=== PATIENT | female | born 1995 | race Caucasian/White ===

== ENCOUNTER 2024-05-17 10:34 | Emergency (ER) | payer OTHER, SELFPAY ==
[2024-05-17 10:40] VITALS: BP 138/86; PULSE 89; TEMP 37.5; O2SAT 100; BMI 27.5
[2024-05-17 10:45] VITALS: O2SAT 99
[2024-05-17] MEDS: DEXAMETHASONE SOD PHOS 10 MG/ML VIAL 16 MG PO (10:58)
--- NOTE | 2024-05-17 11:04 | ED_ITS ---
HPI HPI - General Adult General Chief complaint: Upper Respiratory Infection Stated complaint: SORE THROAT/ FEVER Time Seen by Provider: 05/17/24 10:35 Source: patient Mode of arrival: walk-in History of Present Illness HPI narrative: 29-year-old female to the emergency department with chief complaint of nasal congestion, cough, ear pressure, sore throat. Symptoms ongoing for the last 3 days. Daughter is sick with similar symptoms. No shortness of breath or chest pain. COVID testing negative at home. Related Data Previous Rx's ?Medication ?Instructions ?Recorded vbkdtumhddkmvmj-ltrkfxamwookpuc-LH 5 ml PO Q4H PRN cold symptoms #118 05/17/24 2 mg-30 mg-10 mg/5 mL oral syrup mL (Bromfed DM) Allergies Allergy/AdvReac Type Severity Reaction Status Date / Time No Known Drug Allergies Allergy Verified 05/17/24 10:42 Opioid HPI Opioid Management Most Recent Opioid Data: No Data to Display Review of Systems ROS Status of ROS 10 or more systems reviewed and unremark able except as noted in history and below PFSH PFSH Social History Little interest or pleasure in doing things: not at all Feeling down, depressed, or hopeless: not at all Exam Narrative Exam Narrative: VITALS: I have reviewed the triage vital signs. GENERAL: Well developed, well appearing adult in no acute distress. NEURO: Alert and oriented. Moves all extremities. Face is symmetric and expressive. EYES: PERRL. No scleral icterus or conjunctival injection. No discharge. HENT: Normocephalic, atraumatic. Hearing is grossly intact. Nasal congestion bilaterally. Mucous membranes moist. Bilateral TM effusions without evidence of infection.Uvula midline. There is no unilateral peritonsillar swelling. NECK: No JVD. Patient moves neck without restriction. CARDIO: Rhythm regular. Normal rate. No murmur, rub, or gallop. Pulses equal bilaterally in the upper and lower extremity. No lower extremity edema. PULM: Lungs clear to auscultation in all stone. No wheezes, rales, or rhonchi. No conversational dyspnea. No splinting, stridor, or accessory muscle use. GI/: Abdomen is soft and non-tender. Normoactive bowel sounds. EXTREMITIES: Symmetric muscle bulk. No joint swelling. No clubbing, cyanosis, or deformity. SKIN: Warm and dry. Normal turgor. No rash or lesions appreciated. PSYCH: Mood, affect, and interaction is appropriate to the setting. Constitutional Vital Signs, click to edit/add: Last Vital Signs Temp 99.5 F 05/17/24 10:40 Pulse 89 05/17/24 10:40 Resp 16 05/17/24 10:40 BP 138/86 05/17/24 10:40 Pulse Ox 99 05/17/24 10:45 O2 Del Method Room Air 05/17/24 10:45 Course Vital Signs Vital signs: Vital Signs Temperature 99.5 F 05/17/24 10:40 Pulse Rate 89 05/17/24 10:40 Respiratory Rate 16 05/17/24 10:40 Blood Pressure 138/86 05/17/24 10:40 Pulse Oximetry 100 05/17/24 10:40 Oxygen Delivery Method Room Air 05/17/24 10:40 Temperature 99.5 F 05/17/24 10:40 Pulse Rate 89 05/17/24 10:40 Respiratory Rate 16 05/17/24 10:40 Blood Pressure 138/86 05/17/24 10:40 Pulse Oximetry 99 05/17/24 10:45 Oxygen Delivery Method Room Air 05/17/24 10:45 Medical Decision Making MDM Narrative Medical decision making narrative: 29-year-old female to the emergency department with chief complaint of nasal congestion, cough, sore throat. Vital stable, the patient is afebrile. History and exam are consistent with viral upper respiratory infection. Recommended symptomatic therapy. Bromfed. Return precautions were discussed. All qu estions were answered. The patient was discharged home Discharge Plan Discharge Chief Complaint: Upper Respiratory Infection Clinical Impression: Upper respiratory infection Patient Disposition: Home, Self-Care Time of Disposition Decision: 10:54 Condition: Good Mode of Transportation: Private Vehicle Prescriptions / Home Meds: New bevdiwikddqeylt-[id number] [Bromfed DM] 2-30-10 mg/5 mL syrup 5 ml PO Q4H PRN (Reason: cold symptoms) Qty: 118 0RF Print Language: Occitan Instructions: Upper Respiratory Infection (ED) Additional Instructions: Call the office of your primary care doctor to arrange for follow-up within the above-stated timeframe. Your ED visit was focused on your acute issue and does not replace primary care. You should review your labs, imaging, and diagnoses fr om this ED visit with your primary care physician. There may be non-emergent/ incidental findings that need further evaluation. You should review your vital signs including blood pressure with your PCP. If you were prescribed medications you should discuss possible side-effects and drug interactions with your pharmacist. Call 911 or go to the nearest Emergency Department if you develop any new or worsening symptoms. Referrals: Charlee Rodriguez NP [Primary Care Provider] - 1 week Discharge Date/Time: 05/17/24 11:02
== END 2024-05-17 11:02 | disposition home or self-care (01) ==
LOC: ER 10:59
PROVIDERS: Emergency Provider Student in an Organized Health Care Education/Training Program; PCP Nurse Practitioner
DX: J06.9 Acute upper respiratory infection, unspecified (principal)
CPT/HCPCS: 99283; J1100

== ENCOUNTER 2024-05-21 09:58 | Outpatient (OUT) | payer OTHER, SELFPAY ==
[2024-05-21 10:51] LABS: Bilirubin Urine NEGATIVE (NEGATIVE); Blood Urine NEGATIVE (NEGATIVE); Clarity Urine CLEAR (CLEAR); Color Urine LT. YELLOW (YELLOW); Glucose Urine UA NEGATIVE (NEGATIVE); Ketones Urine NEGATIVE (NEGATIVE); Leukocyte Esterase Urine SMALL (NEGATIVE); Nitrite Urine NEGATIVE (NEGATIVE); Protein Urine NEGATIVE (NEG/TRACE); Urobilinogen Urine 0.2 EU/dL (0.2-1.0)
[2024-05-21 10:53] LABS: Basophils Absolute Auto 0.1 10^3/uL (0.0-0.1); Basophils Percent Auto 1.3 % (0.2-2.0); Eosinophils Absolute Auto 0.2 10^3/uL (0.0-0.7); Eosinophils Percent Auto 3.1 % (0.9-7.0); Hematocrit 38.3 % (36.0-48.0); Hemoglobin 11.9 g/dL (12.0-16.0); Immature Granulocytes Abs Auto 0.01 10^3/uL (0.00-0.03); Immature Granulocytes Pct Auto 0.2 % (0.0-0.5); Lymphocytes Absolute Auto 1.3 10^3/uL (1.2-3.8); Lymphocytes Percent Auto 27.8 % (20.5-60.0); Mean Corpuscular HGB Conc 31.1 g/dL (29.9-35.2); Mean Corpuscular Volume 80.5 fL (81.0-99.0); Mean Platelet Volume 10.3 fL (9.5-13.5); Monocytes Absolute Auto 0.4 10^3/uL (0.3-0.8); Neutrophils Absolute Auto 2.8 10^3/uL (1.4-6.5); Neutrophils Percent Auto 58.6 % (43.0-75.0); Platelet Count 286 10^3/uL (150-450); Red Blood Count 4.76 10^6/uL (4.20-5.40); Red Cell Distribution Width 16.1 % (11.0-15.0); White Blood Count 4.8 10^3/uL (4.0-11.0)
[2024-05-21 10:57] LABS: Urine Microscopic Indicated YES
[2024-05-21 11:23] LABS: Bacteria Urine TRACE #/HPF (NONE SEEN); Cast Seen? NONE SEEN #/LPF (NONE SEEN); Crystals Seen? None Seen #/HPF (None Seen); Mucus Urine NONE SEEN (NONE SEEN); RBC Urine NONE SEEN #/HPF (0-2); Squamous Epithelial Cell Urine FEW #/LPF (NONE/RARE); WBC Urine 0-2 #/HPF (NONE SEEN)
[2024-05-21 11:45] LABS: Free T4 0.96 ng/dL (0.76-1.46)
[2024-05-21 12:13] LABS: Alanine Aminotransferase 18 U/L (14-59); Albumin Level 3.8 g/dL (3.4-5.0); Alkaline Phosphatase 54 U/L (46-116); Anion Gap 15.2; Aspartate Amino Transferase 17 U/L (15-37); BUN Creatinine Ratio 9.5; Bilirubin Total 0.5 mg/dL (0.2-1.0); Calcium 8.9 mg/dL (8.5-10.1); Carbon Dioxide 25.7 mmol/L (21.0-32.0); Chloride 104 mmol/L (98-107); Chol HDL Ratio 2.2; Cholesterol 157 mg/dL (<=200); Estimated GFR (African America >60 (>=60 mL/min/1.73m^2); Estimated GFR (Non-African Ame >60 (>=60 mL/min/1.73m^2); Globulin 3.7 g/dL; Glucose 81 mg/dL (74-106); HDL Cholesterol 72 mg/dL (40-60); Potassium 3.9 mmol/L (3.5-5.1); Sodium 141 mmol/L (136-145); Thyroid Stimulating Hormone 1.549 uIU/mL (0.358-3.740); Total Protein 7.5 g/dL (6.4-8.2); Triglycerides 31 mg/dL (<=150); VLDL CHOLESTEROL 6.2 mg/dL
[2024-05-21 12:22] LABS: Percent Iron Saturation 5.9 %
[2024-05-22 04:07] LABS: Vitamin B12 308 pg/mL (232-1245)
[2024-05-22 05:07] LABS: Transferrin 395 mg/dL (192-364)
== END 2024-05-21 09:59 | disposition home or self-care (01) ==
LOC: LAB 09:59
PROVIDERS: PCP Nurse Practitioner; Visit Provider Nurse Practitioner
DX: R42 Dizziness and giddiness (principal); D64.89 Other specified anemias; E66.3 Overweight; F17.200 Nicotine dependence, unspecified, uncomplicated
CPT/HCPCS: 36415; 80053; 80061; 81001; 82607; 83540; 83550; 84439; 84443; 84466; 85025; 93246

== ENCOUNTER 2024-07-24 20:17 | Outpatient (REF) | payer OTHER, SELFPAY ==
--- OUTSIDE RECORDS SUMMARY | 2024-07-24 20:21 | XMS_ITS | CCD ---
Author Organization [facility] Care Team Providers Care Machine Stamper Name Role Phone KEVAN RODRIGUEZ Primary Care Unavailable PAY, DR MAI Admitting Unavailable PAY, DR MAI Attending Unavailable PAY, DR MAI Consulting Unavailable MICHAEL, KEVAN CHARLEE Primary Care Unavailable ANTONY, DR CHAMBERS Admitting Unavailable HAY, DR CHAMBERS Attending Unavailable ARON TORRES Consulting Unavailable AICHHOLKatie, KEVAN CHARLEE Primary Care Unavailable ARON SINGH Consulting Unavailable ALFREDO, DARLIN Admitting Unavailable DARLIN FUENTES Attending Unavailable DARLIN FUENTES Consulting Unavailable Zach Medina MD Primary Care Provider [phone] Michael DRAFTING CLERK, Charlee Unavailable CHARLEE RODRIGUEZ Attending Unavailable CHARLEE RODRIGUEZ Attending Unavailable Medications Current Medications Medication Drug Class(es) Dates Sig (Normalized) Sig (Original) ferrous sulfate 325 mg oral tablet (4 sources) Start: 05-30-2024 End: 06-29-2024 take 1 tablet by mouth at mealtime ferrous sulfate 325 (65 Fe) MG tablet Indications: Iron deficiency anemia, unspecified iron deficiency anemia type Take 1 tablet (325 mg) by mouth in the morning. Take with meals. 30 tablet 2 05/30/2024 06/29/2024 Active Start: 05-24-2024 End: 06-23-2024 take 1 tablet by mouth at mealtime ferrous sulfate (Fe Tabs) 325 (65 Fe) MG EC tablet Indications: Iron deficiency anemia, unspecified iron deficiency anemia type Take 1 tablet (325 mg) by mouth in the morning. Take with meals. Do not crush, chew, or split. May cause discoloration of stool. 30 tablet 2 05/24/2024 06/23/2024 Active Problems Active Problems Problem Classification Problem Date Documented Da te Episodic/Chronic Anxiety disorders (4 sources) Other specified anxiety disorders; Translations: [OTHER SPECIFIED ANXIETY DISORDERS] Onset: 01-03-2022 Chronic Asthma (7 sources) Asthma; Translations: [Unspecified asthma, uncomplicated] Onset: 05-14-2024 05-14-2024 Chronic Cardiac dysrhythmias (6 sources) Tachycardia; Translations: [Tachycardia, unspecified] Onset: 06-24-2024 06-24-2024 Episodic Conditions associated with dizziness or vertigo (13 sources) Dizziness and giddiness; Translations: [Dizziness and giddiness] Onset: 05-14-2024 05-14-2024 Episodic Deficiency and other anemia (9 sources) Anemia; Translations: [Other specified anemias] Onset: 05-14-2024 05-14-2024 Episodic Deficiency and other anemia (8 sources) Iron deficiency anemia; Translations: [Iron deficiency anemia, unspecified] Onset: 05-24-2024 05-24-2024 Episodic Fever of unknown origin (1 source) Fever, unspecified; Translations: [FEVER UNSPECIFIED] Onset: 2022 Episodic Fluid and electrolyte disorders (1 source) Dehydration; Translations: [DEHYDRATION] Onset: 2022 Episodic Mood disorders (11 sources) Bipolar disorder; Translations: [Bipolar disorder, unspecified] Onset: 05-14-2024 05-14-2024 Chronic Nausea and vomiting (3 sources) Nausea with vomiting, unspecified; Translations: [NAUSEA WITH VOMITING UNSPECIFIED] Onset: 02-01-2022 Episodic Other aftercare (1 source) Other jail (current) drug therapy; Translations: [OTH IMAGING SCHEDULER CURRENT DRUG THERAPY] Onset: 2022 Episodic Other ear and sense organ disorders (7 sources) Hearing difficulty; Translations: [Unspecified hearing loss, unspecified ear] Onset: 05-14-2024 05-14-2024 Chronic Other nutritional; endocrine; and metabolic disorders (9 sources) Body mass index 25-29 - overweight; Translations: [Overweight] Onset: 05-14-2024 05-14-2024 Episodic Other upper respiratory infections (1 source) Acute upper respiratory infection, unspecified; Translations: [ACUTE UP RESPIRATORY INFECTION UNS] Onset: 04-18-2022 Episodic Personality disorders (1 source) Borderline personality disorder; Translations: [BORDERLINE PERSONALITY DISORDER] Onset: 01-04-2022 Chronic Substance-related disorders (11 sources) Tobacco dependence syndrome; Translations: [Nicotine dependence, unspecified, uncomplicated] Onset: 05-14-2024 05-14-2024 Chronic Unclassified (2 sources) COUGH, UNSPECIFIED; Translations: [COUGH, UNSPECIFIED] Onset: 04-18-2022 Unclassified (1 source) CONTACT W/AND (SUSP) EXPOS COVID-19; Translations: [CONTACT W/AND (SUSP) EXPOS COVID-19] Onset: 04-18-2022 Viral infection (1 source) COVID-19; Translations: [COVID-19] Onset: 2022 Past or Other Problems Problem Classification Problem Date Documented Da te Episodic/Chronic Screening and history of mental health and substance abuse codes (1 source) Personal history of nicotine dependence; Translations: [PERSONAL HISTORY OF NICOTINE DEPEND] Onset: 01-04-2022 Episodic Unclassified (1 source) COUGH, UNSPECIFIED; Translations: [COUGH, UNSPECIFIED] Onset: 04-15-2022 Results Test Name Value Interpretation Reference Range Facility [facility] UA (CLEAN/CATCH) MICROSC OPIC IF INDICATEon 05-21-2024 BILIRUBIN URINE Negative NEGATIVE [facility] BLOOD URINE Negative NEGATIVE [facility] Clarity (U) CLEAR CLEAR [facility] Color (U) LT. YELLOW YELLOW [facility] GLUCOSE URINE UA Negative NEGATIVE mg/dL [facility] Interpretation and review of laboratory results Abnormal [facility] Ketones Ql (U) Negative NEGATIVE mg/dL [facility] Leukocyte esterase Test strip Ql (U) SMALL Abnormal NEGATIVE [facility] NITRITE URINE Negative NEGATIVE [facility] pH (U) 7.0 [pH] 5.0 - 9.0 [facility] PROTEIN URINE Negative NEG/TRACE mg/dL [facility] SPECIFIC GRAVITY URINE 1.020 1.005 - 1.025 [facility] URINE MICROSCOPIC INDICATED YES [facility] UROBILINOGEN URINE 0.2 EU/dL 0.2 - 1.0 EU/dL [facility] Covid-19 PCR ([facility])on SARS-CoV-2 (COVID-19) RNA TATY+probe Ql (Unsp spec) Not detected Normal NOT DETECTED [facility] Comment on above: Result Comment: When diagnostic testing is negative, the possibility of a false negative should be considered in the context of a patient's recent exposures and the presence of clinical signs and symptoms consistent with SARS-CoV-2. This test is not yet approved or cleared by the [place] FDA. When there are no FDA-approved or cleared tests available, and other criteria are met, FDA can make tests available under an emergency access mechanism called an Emergency Use Authorization (EUA). The EUA for this test is supported by the Medical Education Coordinator of Health and Human Service's declaration that circumstances exist to justify the emergency use of in vitro diagnostics for the detection and/or diagnosis of the virus that causes COVID-19. This EUA will remain in effect for the duration of the COVID-19 declaration justifying emergency of IVDs, unless it is terminated or revoked by the FDA (after which the test may no longer be used). Performed By: #### [facility] #### [facility] [address] [place] [address] Dr. Cricket Vasquez ER URINE PROFILEon 2 Bilirubin Ql (U) Negative Normal NEGATIVE [facility] Comment on above: Performed By: #### Karl PARIS UMICRO #### [facility] [address] [place] [address] Dr. Cricket Vasquez Clarity (U) CLEAR Normal CLEAR [facility] Comment on above: Performed By: #### Karl PARIS UMICRO #### [facility] [address] [place] [address] Dr. Cricket Vasquez Color (U) LT. YELLOW Normal YELLOW [facility] Comment on above: Performed By: #### E [place] UMICRO #### [facility] [address] [place] [address] Dr. Cricket Vasquez ERUAHD A micrscopic examination will be performed if indicated. Normal [facility] Comment on above: Performed By: #### E NINAR UMICRO #### [facility] [address] [place] [address] Dr. Cricket Vasquez Glucose Ql (U) Negative Normal NEGATIVE [facility] Comment on above: Performed By: #### E NINAR UMICRO #### [facility] [address] [place] [address] Dr. Cricket Vasquez Hemoglobin Ql (U) SMALL Abnormal NEGATIVE [facility] Comment on above: Performed By: #### KATHY BARCLAYRO #### [facility] [address] [place] [address] Dr. Cricket Vasquez Ketones Ql (U) 15 mg/dl Abnormal NEGATIVE [facility] Comment on above: Performed By: #### KATHY BARCLAYRO #### [facility] [address] [place] [address] Dr. Cricket Vasquez LEUKOCYTES Negative Normal NEGATIVE [facility] Comment on above: Performed By: #### KATHY BARCLAYRO #### [facility] [address] [place] [address] Dr. Cricket Vasquez Nitrite Ql (U) Negative Normal NEGATIVE [facility] Comment on above: Performed By: #### KATHY BARCLAYRO #### [facility] [address] [place] [address] Dr. Cricket Vasquez pH (U) 6.0 [pH] Normal 5-9 [facility] Comment on above: Performed By: #### KATHY BARCLAYRO #### [facility] [address] [place] [address] Dr. Cricket Vasquez SPEC GRAVITY 1.025 Normal 1.005-<=1.025 [facility] Comment on above: Performed By: #### KATHY BARCLAYRO #### [facility] [address] [place] [address] Dr. Cricket Vasquez UA PROTEIN Negative Normal NEGATIVE/ TRACE [facility] Comment on above: Performed By: #### KATHY BARCLAYRO #### [facility] [address] [place] [address] Dr. Cricket Vasquez UR MICRO IND INDICATED Normal [facility] Comment on above: Performed By: #### KATHY BARCLAYRO #### [facility] [address] [place] [address] Dr. Cricket Vasquez Urobilinogen Qn (U) 0.2 {Elizabeth'U}/dL Normal 0.2 - 1. 0 [facility] Comment on above: Performed By: #### E RUR, UMICRO #### [facility] [address] [place] [address] Dr. Cricket Vasquez URINE MICROSCOPIC ONLYon BACTERIA NONE SEEN Normal NONE SEEN [facility] Comment on above: Performed By: #### E RUR, UMICRO #### [facility] [address] [place] [address] Dr. Cricket Vasquez Bacteria identified Cx Nom (U) NOT INDICATED Normal [facility] Comment on above: Performed By: #### E RUR, UMICRO #### [facility] [address] [place] [address] Dr. Cricket Vasquez CAST NONE SEEN Normal NONE SEEN [facility] Comment on above: Performed By: #### E RUR, UMICRO #### [facility] [address] [place] [address] Dr. Cricket Vasquez Crystals LM Nom (Urine sed) NONE SEEN Normal NONE SEEN [facility] Comment on above: Performed By: #### E RUR, UMICRO #### [facility] [address] [place] [address] Dr. Cricket Vasquez Epithelial cells LM Ql (Urine sed) FEW Abnormal NONE SEEN /RARE [facility] Comment on above: Performed By: #### E RUR, UMICRO #### [facility] [address] [place] [address] Dr. Cricket Vasquez MUCOUS SMALL Abnormal NONE SEEN [facility] Comment on above: Performed By: #### E RUR, UMICRO #### [facility] [address] [place] [address] Dr. Cricket Vasquez RBC 0-2 Normal 0-2 [facility] Comment on above: Performed By: #### E RUR, UMICRO #### [facility] [address] [place] [address] Dr. Cricket Vasquez WBC NONE SEEN Normal NONE SEEN [facility] Comment on above: Performed By: #### E RUR, UMICRO #### [facility] [address] [place] [address] Dr. Cricket Vasquez Covid-19 PCR (CVDTB)on 01-06 SARS-CoV-2 (COVID-19) RNA TATY+probe Ql (Unsp spec) Detected Critically abnormal NOT DETECTED [facility] Comment on above: Result Comment: This test is not yet approved or cleared by the [place] FDA. When there are no FDA-approved or cleared tests available, and other criteria are met, FDA can make tests available under an emergency access mechanism called an Emergency Use Authorization (EUA). The EUA for this test is supported by the [place] of Health and Human Service's (HHS's) declaration that circumstances exist to justify the emergency use of in vitro diagnostics for the detection and/or diagnosis of the virus that causes COVID-19. This EUA will remain in effect (meaning this test can be used) for the duration of the COVID-19 declaration justifying emergency of IVDs, unless it is terminated or revoked by FDA (after which the test may no longer be used). Performed By: #### C VDTBH #### [facility] [address] [place] [address] Dr. Cricket Vasquez ER URINE PROFILEon 2 Bilirubin Ql (U) SMALL Abnormal NEGATIVE [facility] Comment on above: Performed By: #### E RUR #### [facility] [address] [place] [address] Dr. Cricket Vasquez Clarity (U) CLEAR Normal CLEAR [facility] Comment on above: Performed By: #### E RUR #### [facility] [address] [place] [address] Dr. Cricket Vasquez Color (U) DK. YELLOW Normal YELLOW [facility] Comment on above: Performed By: #### E RUR #### [facility] [address] [place] [address] Dr. Cricket MYERS A micrscopic examination will be performed if indicated. Normal [facility] Comment on above: Performed By: #### E RUR #### [facility] [address] [place] [address] Dr. Cricket Vasquez Glucose Ql (U) Negative Normal NEGATIVE [facility] Comment on above: Performed By: #### E RUR #### [facility] [address] [place] [address] Dr. Cricket Vasquez Hemoglobin Ql (U) Negative Normal NEGATIVE [facility] Comment on above: Performed By: #### E RUR #### [facility] [address] [place] [address] Dr. Cricket Vasquez Ketones Ql (U) >=80 Abnormal NEGATIVE [facility] Comment on above: Performed By: #### E RUR #### [facility] [address] [place] [address] Dr. Cricket Vasquez LEUKOCYTES Negative Normal NEGATIVE [facility] Comment on above: Performed By: #### E RUR #### [facility] [address] [place] [address] Dr. Cricket Vasquez Nitrite Ql (U) Negative Normal NEGATIVE [facility] Comment on above: Performed By: #### E RUR #### [facility] [address] [place] [address] Dr. Cricket Vasquez pH (U) 5.5 [pH] Normal 5-9 [facility] Comment on above: Performed By: #### E RUR #### [facility] [address] [place] [address] Dr. Cricket Vasquez SPEC GRAVITY >=1.030 Abnormal 1.005-<=1.025 [facility] Comment on above: Performed By: #### E RUR #### [facility] [address] [place] [address] Dr. Cricket Vasquez UA PROTEIN TRACE Normal NEGATIVE/ TRACE [facility] Comment on above: Performed By: #### E RUR #### [facility] [address] [place] [address] Dr. Cricket Vasquez UR MICRO IND NOT INDICATED Normal [facility] Comment on above: Performed By: #### E RUR #### [facility] [address] [place] [address] Dr. Cricket Vasquez Urobilinogen Qn (U) 1.0 {Elizabeth'U}/dL Normal 0.2 - 1. 0 [facility] Comment on above: Performed By: #### E RUR #### [facility] [address] [place] [address] Dr. Cricket Vasquez GROUP A STREP CULTUREon 01-06 S. pyogenes Ag Ql (Unsp spec) Culture Observations: NEGATIVE FOR GROUP A STREPTOCOCCUS. Normal [facility] Comment on above: Performed By: #### G RASTCX, SSCRN #### [facility] [address] [place] [address] Dr. Cricket Vasquez INFLUENZA A AND B AGon 02-01 INFLUANEGH SEE BELOW Normal [facility] Comment on above: Result Comment: Nega tive for Flu A protein angiten. Infection due to Flu A cannot be ruled out. Flu A angiten in the sample may be below the detection limit of the test. Performed By: #### I NFLUAB #### [facility] [address] [place] [address] Dr. Cricket Vasquez INFLUBNEGH SEE BELOW Normal [facility] Comment on above: Result Comment: Nega tive for Flu B protein antigen. Infection due to Flu B cannot be ruled out. Flu B antigen in the sample may be below the detection limit of the test. Performed By: #### I NFLUAB #### [facility] [address] [place] [address] Dr. Cricket Vasquez INFLUENZA A AG Negative Normal NEGATIVE SEE COMMENT [facility] Comment on above: Performed By: #### I NFLUAB #### [facility] [address] [place] [address] Dr. Cricket Vasquez INFLUENZA B AG Negative Normal NEGATIVE SEE COMMENT [facility] Comment on above: Performed By: #### I NFLUAB #### [facility] [address] [place] [address] Dr. Cricket Vasquez INTERNAL CONTROLS Within Normal Limits Normal Within Normal Limits [facility] Comment on above: Performed By: #### I NFLUAB #### [facility] [address] [place] [address] Dr. Cricket Vasquez STREPT SCREENon 02-01-2022 STREP SCREEN A Negative Normal NEGATIVE [facility] Comment on above: Performed By: #### G RASTCX, SSCRN #### [facility] [address] [address] [address] Cricket Vasquez Coding Summaryon 01-16-2019 Coding Summary CODING DATE: 01/16/2019 [facility] STATUS: Home PAYOR: Medicaid HMO ADMIT DX: REASON FOR VISIT DX: F31.32 Bipolar disorder, current episode depressed, moderate FINAL DX: PRINCIPAL: F31.32 Bipolar disorder, current episode depressed, moderate SECONDARY: PROCEDURES DOCTOR NAME DATE NOTE: The code number assigned matches the documented diagnosis and / or procedure in the patient's chart. However, the narrative phrase printed from the coding software may appear abbreviated, or result in slightly different terminology. Coded By: Traci Larson Date Saved: 01/16/2019 01:11 pm [facility] Provider Orderson 01-16-2019 Provider Orders [id number] 3#[id number] [facility] T3 Total LCon 01-16-2019 Triiodothyronine (T3) LC 128 ng/dL 71-180 [facility] Comment on above: Result Comment: Perf ormed At: [facility] [address] [id number] Chelsea Driver PhD Ph:[phone] Performed By: #### 6 [id number], [id number] #### [facility] (DEFAULT) [address] [place] [id number] .Auto Diff 1on 01-15-2019 Auto [place] % 11 % Normal 08-18 [facility] Comment on above: Performed By: #### 6 [id number], [id number] #### [facility] (DEFAULT) [address] [place] [address] Baso Abs# 0.0 x10 Normal 0.0-0.2 [facility] Comment on above: Performed By: #### 6 [id number], [id number] #### [facility] (DEFAULT) [address] [place] [address] 46046 Basophils/100 WBC (Bld) 0.6 % Normal 0.2-2.0 [facility] Comment on above: Performed By: #### 6 [id number] #### [facility] (DEFAULT) [address] [place] [address] 31701 Eos Abs# 0.2 x10 Normal 0.0-0.4 [facility] Comment on above: Performed By: #### 6 [id number], [id number] #### [facility] (DEFAULT) [address] [place] [address] 94443 Eosinophils/100 WBC (Bld) 2.9 % Normal 0.9-4.0 [facility] Comment on above: Performed By: #### 6 [id number], [id number] #### [facility] (DEFAULT) [address] [place] [address] Lymphocytes (Bld) [#/Vol] 2.2 x10 Normal 1.3-2.9 [facility] Comment on above: Performed By: #### 6 [id number], [id number] #### [facility] (DEFAULT) [address] [place] [address] Lymphocytes/100 WBC (Bld) 36 % Normal 14-48 [facility] Comment on above: Performed By: #### 6 [id number], [id number] #### [facility] (DEFAULT) [address] [place] [address] [place] Abs# 0.7 x10 Normal 0.0-0.8 [facility] Comment on above: Performed By: #### 6 [id number], [id number] #### [facility] (DEFAULT) [address] [place] [address] 13484 Neut Abs# 3.1 x10 Normal 1.5-9.2 [facility] Comment on above: Performed By: #### 6 [id number], [id number] #### [facility] (DEFAULT) [address] [place] [address] 07548 Neutrophils/100 WBC (Bld) 50 % Normal 44-88 [facility] Comment on above: Performed By: #### 6 [id number], [id number] #### [facility] (DEFAULT) [address] [place] [address] 82401 .Bilirubin Indirecton 2018 Bili Indirect 0.5 mg/dL Normal 0.2-0.8 [facility] Comment on above: Order Comment: Order placed by Design A Expert System Performed By: #### 6 [id number], [id number] #### [facility] (DEFAULT) [address] [place] [address] Bili Directon 01-15-2019 Bili Direct 0.10 mg/dL Normal 0.10-0.50 [facility] Comment on above: Order Comment: Order placed by Design [employer] Expert System ([email or web address]) Performed By: #### 6 [id number], [id number] #### [facility] (DEFAULT) [address] [place] [address] CBC w/ Auto Diffon 9 Erythrocyte distribution width (RBC) [Ratio] 16.6 % High 11.5-15.0 [facility] Comment on above: Performed By: #### 6 [id number], [id number] #### [facility] (DEFAULT) [address] [place] [address] Hematocrit (Bld) [Volume fraction] 39.6 % Normal 33.7-40.4 [facility] Comment on above: Performed By: #### 6 [id number], [id number] #### [facility] (DEFAULT) [address] [place] [address] Hemoglobin (Bld) [Mass/Vol] 12.9 g/dL Normal 11.3-15.9 [facility] Comment on above: Performed By: #### 6 [id number], [id number] #### [facility] (DEFAULT) [address] [place] [address] Man Diff? Auto Normal [facility] Comment on above: Performed By: #### 6 [id number], [id number] #### [facility] (DEFAULT) [address] [place] [address] MCH (RBC) [Entitic mass] 25 pg Normal 24-34 [facility] Comment on above: Performed By: #### 6 [id number], [id number] #### [facility] (DEFAULT) [address] [place] [address] 00796 MCHC (RBC) [Mass/Vol] 33 g/dL Normal 26-37 [facility] Comment on above: Performed By: #### 6 [id number], [id number] #### [facility] (DEFAULT) [address] [place] [address] 38353 MCV (RBC) [Entitic vol] 76 fL Low 81-100 [facility] Comment on above: Performed By: #### 6 [id number], [id number] #### [facility] (DEFAULT) [address] [place] [address] Platelet mean volume (Bld) [Entitic vol] 10.6 fL High 6.3-10.2 [facility] Comment on above: Performed By: #### 6 [id number], [id number] #### [facility] (DEFAULT) [address] [place] [address] Platelets (Bld) [#/Vol] 281 x10 Normal 138-427 [facility] Comment on above: Performed By: #### 6 [id number], [id number] #### [facility] (DEFAULT) [address] [place] [address] RBC (Bld) [#/Vol] 5.23 x10 Normal 3.70-5.30 [facility] Comment on above: Performed By: #### 6 [id number], [id number] #### [facility] (DEFAULT) [address] [place] [address] WBC (Bld) [#/Vol] 6.2 x10 [facility] Comment on above: Performed By: #### 6 [id number], [id number] #### [facility] (DEFAULT) [address] [place] [address] CMP Standardon 01-15-2019 eGFR Non AA >60 [facility] Comment on above: Performed By: #### 6 [id number], [id number] #### [facility] (DEFAULT) [address] [place] [address] eGFR AA >60 [facility] Comment on above: Result Comment: [employer] Kidney disease could be indicated at eGFRs of less than 60 ml/min/1.73m2. Kidney Failure is indicated at less than 15 ml/min/1.73m2 Performed By: #### 6 [id number], [id number] #### [facility] (DEFAULT) [address] [place] [address] 60750 Albumin [Mass/Vol] 4.4 g/dL Normal 3.5-5.0 [facility] Comment on above: Performed By: #### 6 [id number], [id number] #### [facility] (DEFAULT) [address] [place] [address] 23833 Albumin/Globulin [Mass ratio] 1.1 {ratio} Low 1.4-2.6 [facility] Comment on above: Performed By: #### 6 [id number], [id number] #### [facility] (DEFAULT) [address] [place] [address] 95887 Alk Phos 57 IU/L Normal 32-91 [facility] Comment on above: Performed By: #### 6 [id number], [id number] #### [facility] (DEFAULT) [address] [place] [address] 34469 ALT/SGPT 20.0 IU/L Normal 14.0-54.0 [facility] Comment on above: Performed By: #### 6 [id number], [id number] #### [facility] (DEFAULT) [address] [place] [address] 47038 Anion gap [Moles/Vol] 15.0 mmol/L Normal 5.0-19.0 [facility] Comment on above: Performed By: #### 6 [id number], [id number] #### [facility] (DEFAULT) [address] [place] [address] 29007 AST/SGOT 26 IU/L Normal 15-41 [facility] Comment on above: Performed By: #### 6 [id number], [id number] #### [facility] (DEFAULT) [address] [place] [address] 98547 Bili Total 0.6 mg/dL Normal 0.3-1.2 [facility] Comment on above: Performed By: #### 6 [id number], [id number] #### [facility] (DEFAULT) [address] [place] [address] 62036 Calcium [Mass/Vol] 9.4 mg/dL Normal 8.9-10.3 [facility] Comment on above: Performed By: #### 6 [id number], [id number] #### [facility] (DEFAULT) [address] [place] [address] 88603 Chloride [Moles/Vol] 105 mmol/L Normal 101-111 [facility] Comment on above: Performed By: #### 6 [id number], [id number] #### [facility] (DEFAULT) [address] [place] [address] 23246 CO2 [Moles/Vol] 23 mmol/L Normal 21-32 [facility] Comment on above: Performed By: #### 6 [id number], [id number] #### [facility] (DEFAULT) [address] [place] [address] 01603 Creatinine [Mass/Vol] 0.74 mg/dL Normal 0.60-1.30 [facility] Comment on above: Performed By: #### 6 [id number], [id number] #### [facility] (DEFAULT) [address] [place] [address] 73654 Globulin (S) [Mass/Vol] 4.0 g/dL Normal 1.5-4.3 [facility] Comment on above: Performed By: #### 6 [id number], [id number] #### [facility] (DEFAULT) [address] [place] [address] 11004 Glucose [Mass/Vol] 99.0 mg/dL Normal 74.0-118.0 [facility] Comment on above: Performed By: #### 6 [id number], [id number] #### [facility] (DEFAULT) [address] [place] [address] 42954 Osmolality [Osmolality] 276 mOsm/L [facility] Comment on above: Performed By: #### 6 [id number], [id number] #### [facility] (DEFAULT) [address] [place] [address] 94211 Potassium [Moles/Vol] 3.7 mmol/L Normal 3.6-5.1 [facility] Comment on above: Performed By: #### 6 [id number], [id number] #### [facility] (DEFAULT) [address] [place] [address] 79577 Protein [Mass/Vol] 8.4 g/dL High 6.5-8.1 [facility] Comment on above: Performed By: #### 6 [id number], [id number] #### [facility] (DEFAULT) [address] [place] [address] 99903 Sodium [Moles/Vol] 139.0 mmol/L Normal 136.0-144.0 [facility] Comment on above: Performed By: #### 6 [id number], [id number] #### [facility] (DEFAULT) [address] [place] [address] Urea nitrogen [Mass/Vol] 9 mg/dL Normal 8-26 [facility] Comment on above: Performed By: #### 6 [id number], [id number] #### [facility] (DEFAULT) [address] [place] [address] Urea nitrogen/Creatinine [Mass ratio] 12.0 mg/mg Normal 4.6-16.2 [facility] Comment on above: Performed By: #### 6 [id number], [id number] #### [facility] (DEFAULT) [address] [place] [address] T4, Totalon 01-15-2019 T4 [Mass/Vol] 7.67 ug/dL Normal 6.09-12.23 [facility] Comment on above: Performed By: #### 6 [id number], [id number] #### [facility] (DEFAULT) [address] [place] [address] 38179 TSHon 01-15-2019 TSH Qn 2.98 mcIU/mL Normal 0.45-5.33 [facility] Comment on above: Result Comment: Gene ral Population (males and non- females, aged 21-88) 0.45 - 5.33 Females, 1st Trimester 0.05 - 3.70 Females, 2nd Trimester 0.31 - 4.35 Females, 3rd Trimester 0.41 - 5.18 Performed By: #### 6 [id number], [id number] #### [facility] (DEFAULT) [address] [place] [address] 05120 C Throaton 10-08-2018 C Throat Ordered by Discern. Normal throat geovanna isolated No pathogens isolated Normal [facility] Comment on above: Performed By: #### 6 [id number], [id number] #### [facility] (DEFAULT) [address] [place] [address] Coding Summaryon 10-08-2018 Coding Summary CODING DATE: 10/08/2018 [facility] STATUS: Home PAYOR: Medicaid HMO ADMIT DX: REASON FOR VISIT DX: J02.9 Acute pharyngitis, unspecified R52 Pain, unspecified R68.83 Chills (without fever) FINAL DX: PRINCIPAL: J02.9 Acute pharyngitis, unspecified SECONDARY: J03.90 Acute tonsillitis, unspecified R59.0 Localized enlarged lymph nodes M79.10 Myalgia, unspecified site PROCEDURES DOCTOR NAME DATE NOTE: The code number assigned matches the documented diagnosis and / or procedure in the patient's chart. However, the narrative phrase printed from the coding software may appear abbreviated, or result in slightly different terminology. Coded By: Traci Larson Date Saved: 10/08/2018 10:[address] [facility] ED Clinical Summaryon [address] [facility] ? Urgent Care [address] [place] [address] [id number] Clinical Summary PERSON INFORMATION Name: PAMELA DAVISON Age: 23 Years Sex: FEMALE : [birth year] MRN: Acct#: Visit Reason: UC - Sore Throat; SORE THROAT Arrival: 10/06/18 17:13:00 Discharge: 10/06/18 17:53:00 LOS: 000 00:40 Check In: 10/06/18 17:13:00 Checkout: 10/06/18 17:53:00 Address: [address] [place] [address] PCP: Provider, None PROVIDER INFORMATION Provider Role Assigned Unassigned Julianne Robledo ED Nurse 10/06/18 17:13:46 Grant Gunn ED PA 10/06/18 17:16:43 VITALS INFORMATION Vital Sign Triage Latest Temperature Tympanic Temperature Temporal Artery Pulse Rate 72 bpm 72 bpm O2 Sat Respiratory Rate 16 br/min 16 br/min Blood Pressure 110 mmHg/60 mmHg 110 mmHg/60 mmHg MEDICAL INFORMATION Medications Given: Medication Dose Route dexamethasone 10 mg PO Allergy Information: No Known Medication Allergies PHYSICIAN DOCUMENTATION DISCHARGE INFORMATION: Discharge Disposition: Home Discharge Location: Home PATIENT EDUCATION INFORMATION Instructions: Tonsillitis Follow-Up: With: Address: When: None Provider Within As needed Comments: Your throat sore throat and cough is most bothersome today. Your rapid strep test was negative. Throat culture will return in 3 days and if positive for bacterial infection you be notified by telephone so an antibiotic can be prescribed. Your influenza A/B test was negative. You have a low grade temp with ibuprofen on board. You were given a dose of oral Decadron which is a steroid to help with the swelling and pain in you throat which will help for 3 days. Consider additional use of Chloraseptic spray, salt water gargle, cool liquids. Ibuprofen 600 mg every 8 hours will help for the pain and discomfort if needed. You may also use Tylenol 500mg every 4-6 hours for additional pain relief. Please return for medical care if fever over 101.5, difficulty swallowing, swelling on only one side of your neck or back of throat, muffled voice, drooling, progressive symptoms, chest pain, shortness breath, abdominal pain, nausea, vomiting, diarrhea. DIAGNOSIS: 1:Acute tonsillitis; Acute pharyngitis; Anterior cervical lymphadenopathy; Myalgia Patient Understands: Yes - Patient/family/critical care specialist verbalizes understanding of instructions given Comment: [facility] ED Note - Physicianon 2018 ED Note - Physician Patient: PAMELA DAVISON Age: 23 years Sex: FEMALE : [birth year] Associated Diagnoses: Acute pharyngitis; Acute tonsillitis; Anterior cervical lymphadenopathy; Myalgia Author: Grant Gunn Basic Information Time seen: Date & time 10/06/18 17:19:00. Layne is a 23-year-old female who reports onset 5-7 days ago of first a sore throat, significant body aches, chills. Patient states he took all of her energy to shower today. Patient states the left side of her throat feels sore, left side of her neck feels sore, left ear feels sore. Mild nasal congestion, mild dry cough, no significant sinus pain. Patient reports mild headache. She has not had a recent strep infection. No known exposure to strep. Patient reports 3 close family members haven't been tested positive for influenza a the past week. ROS: She denies any significant shortness of breath, wheezing. She has not traveled abroad, she did not have her flu vaccine this year. LMP is current. Review of Systems Constitutional symptoms: Chills, sweats, weakness, fatigue, decreased activity, No fever, Skin symptoms: No rash, no breakdown, no lesion. Eye symptoms: No recent vision problems, no blurred vision. ENMT symptoms: Sore throat, nasal congestion, no ear pain, no sinus pain. Respiratory symptoms: Cough, no shortness of breath, no sputum production, no wheezing. Cardiovascular symptoms: No chest pain, no palpitations. Gastrointestinal symptoms: No abdominal pain, no nausea, no vomiting, no diarrhea. Genitourinary symptoms: No dysuria, no hematuria. Musculoskeletal symptoms: Muscle pain, No back pain, Neurologic symptoms: No headache, no dizziness, no altered level of consciousness, no numbness, no tingling, no weakness. Psychiatric symptoms: No anxiety, no depression. Health Status Allergies: Allergic Reactions (Selected) No Known Medication Allergies. Medications: (Selected) Inpatient Medications Ordered dexamethasone: 10 mg = 2.5 mL, PO, Once Prescriptions Prescribed amoxicillin 500 mg oral tablet: 500 mg = 1 tab(s), PO, TID, for 10 day(s), 30 tab(s), 0 Refill(s) Documented Medications Documented ProAir HFA: 2 puff(s), INH, QID, 0 Refill(s). Past Medical/ Family/ Social History Medical history: Resolved Smoker 06-FEB-2014 12:37:00<$> ([id number]) : Resolved. Comments: - Added secondary to documentation in Social History. H/O: kidney infection ([id number]): Resolved.. Surgical history: No active procedure history items have been selected or recorded.. Family history: No family history items have been selected or recorded.. Social history: Social & Psychosocial Habits Tobacco 09/15/2018 Smoking tobacco use: Former smoker, quit more . Problem list: Active Problems (4) Anemia Asthma Ingrown nail of great toe of left foot Migraine . Physical Examination Vital Signs Vital Signs 10/06/18 17:17 EST Temperature Oral 37.2 DegC Peripheral Pulse Rate 72 bpm Respiratory Rate 16 br/min Systolic Blood Pressure 110 mmHg Diastolic Blood Pressure 60 mmHg . General: Alert, appropriate for age, no acute distress, Well-hydrated, nontoxic, mild congestion. Skin: Warm, dry, pink, Normal turgor. Head: Normocephalic, atraumatic. Neck: Supple, trachea midline, no meningeal signs.. Eye: Pupils are equal, round and reactive to light, extraocular movements are intact, normal conjunctiva. Ears, nose, mouth and throat: Bilateral earlobes with large gauges, There is no mastoid tenderness. Bilateral ear canals clear of wax, tympanic membranes are clear and shiny, no effusion, no erythema., Tympanic membrane: Normal, no erythema, Sinus: Frontal, maxillary, normal, Nose: Mild, discharge, swelling, Mouth: Mild, Throat: Mild, erythema, Note peritonsillar abscess, no exudate, no uvular shift. Gag reflex present, not with exudate, no palatal petechiae. Cardiovascular: Regular rate and rhythm, No murmur. Respiratory: Lungs are clear to auscultation, respirations are non-labored. Chest wall: No tenderness. Back: Nontender, Normal range of motion. Musculoskeletal: Normal ROM, normal strength, no tenderness. Gastrointestinal: Soft, Nontender, Non distended. Neurological: Alert and oriented to person, place, time, and situation, No focal neurological deficit observed. Lymphatics: Bilateral swollen, enlarged cervical lymphadenopathy, size of golf balls. Chain of 3 cervical lymph nodes. No posterior cervical lymphadenopathy., Exam: Anterior cervical. Psychiatric: Cooperative, appropriate mood & affect, normal judgment. Medical Decision Making Differential Diagnosis: Viral pharyngitis, streptococcal pharyngitis, tonsillitis, upper respiratory infection, Influenza . Orders Launch Orders Pharmacy: dexamethasone (Order): 10 mg, PO, Once. Results review: Lab results : Lab View 10/06/18 17:22 EST Strep A Negative Influenza A Negative Influenza B Negative . 5-7 days of primary body aches, chills, sore throat, myalgia. Patient describes a mild cough. On clinical exam patient has cervical lymphadenopathy in a chain, no mastoid pain tenderness, ears clear bilaterally. Patient was negative for influenza A and B. Negative for strep A. Patient has been running a temperature for 5 days now. I would begin her on amoxicillin 500 mg 3 times a day for the next 10 days with a diagnosis of acute tonsillitis. Await throat culture. Dose of oral Decadron given in urgent care. Patient has no clinical signs of peritonsillar abscess. Follow-up if no improvement. Impression and Plan Diagnosis Acute pharyngitis ([id number] J02.9, Discharge, Medical) Acute tonsillitis (KHC58-HV J03.90, Discharge, Medical) Anterior cervical lymphadenopathy ([id number]-WY R59.0, Discharge, Medical) Myalgia (AQQ53-WG M79.10, Discharge, Medical) Plan Disposition: Discharged: Time 10/06/18 17:50:00, to home. Prescriptions: Launch prescriptions Pharmacy: amoxicillin 500 mg oral tablet (Prescribe): 500 mg = 1 tab(s), PO, TID, for 10 day(s), 30 tab(s), 0 Refill(s). Patient was given the following educational materials: Tonsillitis, Tonsillitis. Follow up with: None Provider Within As needed Your throat sore throat and cough is most bothersome today. Your rapid strep test was negative. Throat culture will return in 3 days and if positive for bacterial infection you be notified by telephone so an antibiotic can be prescribed. Your influenza A/B test was negative. You have a low grade temp with ibuprofen on board. You were given a dose of oral Decadron which is a steroid to help with the swelling and pain in you throat which will help for 3 days. Consider additional use of Chloraseptic spray, salt water gargle, cool liquids. Ibuprofen 600 mg every 8 hours will help for the pain and discomfort if needed. You may also use Tylenol 500mg every 4-6 hours for additional pain relief. Please return for medical care if fever over 101.5, difficulty swallowing, swelling on only one side of your neck or back of throat, muffled voice, drooling, progressive symptoms, chest pain, shortness breath, abdominal pain, nausea, vomiting, diarrhea.. Counseled: Patient, Regarding diagnosis, Regarding diagnostic results, Regarding treatment plan, Regarding prescription, Patient indicated understanding of instructions. [Electronically Signed on: 10/06/2018 18:00 EST] __ Grant Gunn [Verified on: 10/06/2018 18:00 EST] __ Grant Gunn [facility] ED Patient Summaryon [address] [facility] ? Urgent Care [address] [place] [address] PATIENT DISCHARGE INSTRUCTIONS Patient Information Name: PAMELA DAVISON Age: 23 Years Date of : [birth year] Reason For Visit: UC - Sore Throat; SORE THROAT Arrival Time: 10/06/18 17:13:00 Primary Care Physician: Provider, None Attending Physician: Grant Gunn Comment: Patient Education With: Address: When: None Provider Within As needed Comments: Your throat sore throat and cough is most bothersome today. Your rapid strep test was negative. Throat culture will return in 3 days and if positive for bacterial infection you be notified by telephone so an antibiotic can be prescribed. Your influenza A/B test was negative. You have a low grade temp with ibuprofen on board. You were given a dose of oral Decadron which is a steroid to help with the swelling and pain in you throat which will help for 3 days. Consider additional use of Chloraseptic spray, salt water gargle, cool liquids. Ibuprofen 600 mg every 8 hours will help for the pain and discomfort if needed. You may also use Tylenol 500mg every 4-6 hours for additional pain relief. Please return for medical care if fever over 101.5, difficulty swallowing, swelling on only one side of your neck or back of throat, muffled voice, drooling, progressive symptoms, chest pain, shortness breath, abdominal pain, nausea, vomiting, diarrhea. Tonsillitis Tonsillitis is an infection of the throat that causes the tonsils to become red, tender, and swollen. Tonsils are collections of lymphoid tissue at the back of the throat. Each tonsil has crevices (crypts). Tonsils help fight nose and throat infections and keep infection from spreading to other parts of the body for the first 18 months of life. What are the causes? Sudden (acute) tonsillitis is usually caused by infection with streptococcal bacteria. Long-lasting (chronic) tonsillitis occurs when the crypts of the tonsils become filled with pieces of food and bacteria, which makes it easy for the tonsils to become repeatedly infected. What are the signs or symptoms? Symptoms of tonsillitis include: ? A sore throat, with possible difficulty swallowing. ? White patches on the tonsils. ? Fever. ? Tiredness. ? New episodes of snoring during sleep, when you did not snore before. ? Small, foul-smelling, yellowish-white pieces of material (tonsilloliths) that you occasionally cough up or spit out. The tonsilloliths can also cause you to have bad breath. How is this diagnosed? Tonsillitis can be diagnosed through a physical exam. Diagnosis can be confirmed with the results of lab tests, including a throat culture. How is this treated? The goals of tonsillitis treatment include the reduction of the severity and duration of symptoms and prevention of associated conditions. Symptoms of tonsillitis can be improved with the use of steroids to reduce the swelling. Tonsillitis caused by bacteria can be treated with antibiotic medicines. Usually, treatment with antibiotic medicines is started before the cause of the tonsillitis is known. However, if it is determined that the cause is not bacterial, antibiotic medicines will not treat the tonsillitis. If attacks of tonsillitis are severe and frequent, your health care provider may recommend surgery to remove the tonsils (tonsillectomy). Follow these instructions at home: ? Rest as much as possible and get plenty of sleep. ? Drink plenty of fluids. While the throat is very sore, eat soft foods or liquids, such as sherbet, soups, or instant breakfast drinks. ? Eat frozen ice pops. ? Gargle with a warm or cold liquid to help soothe the throat. Mix 1/4 teaspoon of salt and 1/4 teaspoon of baking soda in 8 oz of water. Contact a health care provider if: ? Large, tender lumps develop in your neck. ? A rash develops. ? A green, yellow-brown, or bloody substance is coughed up. ? You are unable to swallow liquids or food for 24 hours. ? You notice that only one of the tonsils is swollen. Get help right away if: ? You develop any new symptoms such as vomiting, severe headache, stiff neck, chest pain, or trouble breathing or swallowing. ? You have severe throat pain along with drooling or voice changes. ? You have severe pain, unrelieved with recommended medications. ? You are unable to fully open the mouth. ? You develop redness, swelling, or severe pain anywhere in the neck. ? You have a fever. This information is not intended to replace advice given to you by your health care provider. Make sure you discuss any questions you have with your health care provider. Document Released: 05/03/2006 Document Revised: 12/29/2016 Document Reviewed: 01/10/2014 [employer] Interactive Patient Education ? 2017 [employer] Medication Information: The exam and treatment you received today in the [facility] Emergency Department were for an urgent problem and are not intended as complete care. It is important for you to follow up with a doctor, nurse practitioner, or physician?s respiratory equipment assistant for ongoing care. If your symptoms become worse or you do not improve as expected and you are unable to reach your usual health care provider, you should return to the Emergency Department, we are available 24 hours a day. For those patients who have received Radiology results, the interpretation of your X-ray as given to you by our Emergency Department physician is only a preliminary report. The Radiologist will review your films and if there is a change in the diagnosis you will be notified by phone. Please make sure you have provided a working phone number so we can reach you if necessary. In the event that you had a lab culture while you were a patient in the Emergency Department, you will be notified by phone if there is a need to change your antibiotic. Please make sure you have provided a working phone number so we can reach you if necessary. [facility] Emergency Department has provided you with a complete list of medications post discharge. 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 Any specific questions regarding your chronic medications and dosages should be discussed with your primary care physician(s) and/or pharmacist. New Medications [facility], [address] [place] [address] [id number], [phone] amoxicillin (amoxicillin 500 mg oral tablet) 1 tab(s) Oral 3 times a day for 10 Days. Refills: 0. Medications to Continue That Have Not Changed Other Medications albuterol (ProAir HFA) 2 puff(s) Inhalation 4 times a day. Visit Information Visit Diagnosis: Diagnoses This Visit Acute pharyngitis (J02.9) Acute tonsillitis (J03.90) Anterior cervical lymphadenopathy (R59.0) Myalgia (M79.10) UC - Sore Throat ([id number]) If you received any narcotics, sedation, or any other medication that causes drowsiness for the next 24 hours, unless otherwise directed: ? Do not drive a car. ? Do not operate machinery such as power tools, lawn mowers, drills, sewing machines, or stoves ? Avoid alcoholic beverages and drugs for allergies, nerves, or sleep ? Do not make important personal or business decisions or sign any legal documents Reason for Visit: 5-7 days nasal congestion, drainage, sore throat left side and cough Allergies: Substance Reaction Symptoms Type Comments No Known Medication Allergies Drug Vital Signs: Vitals and Measurements this Visit (last charted value for your 10/06/2018 visit) Vital Signs This Visit Temperature Oral: 37.2 DegC Peripheral Pulse Rate: 72 bpm Respiratory Rate: 16 br/min Systolic Blood Pressure: 110 mmHg Diastolic Blood Pressure: 60 mmHg Problems List: Problem Onset Comments Anemia Asthma Ingrown nail of great toe of left foot Migraine Major Tests and Procedures: The following procedures and tests were performed during your ED visit. Laboratory Rapid Flu A&B Nasopharyngeal Swab, 10/06/18 17:21:00 EST, Routine collect, Stop date 10/06/18 17:22:00 EST, Nurse collect Rapid Strep Throat, 10/06/18 17:22:00 EST, Stat collect, Stop date 10/06/18 17:22:00 EST, Nurse collect Throat Culture Throat, Collected, 10/06/18 17:22:00 EST, Stat collect, Stop date 10/06/18 17:22:00 EST, Nurse collect, [id number] Radiology Cardiology Viruses or Bacteria What?s got you sick? Antibiotics only treat bacterial infections. Viral illnesses cannot be treated with antibiotics. When an antibiotic is not prescribed, ask your healthcare professional for tips on how to relieve symptoms and feel better. Usual Cause Illness Viruses Bacteria Antibiotic Needed Cold/Runny Nose NO Bronchitis/Chest Cold (in otherwise healthy children and adults) NO Whooping Cough Yes Flu NO Strep Throat Yes Sore Throat (except strep) NO Fluid in the middle ear (otitis media with effusion) NO Urinary Tract Infection Yes Antibiotics Aren?t Always the Answer www.cdc.gov/getsmar t GET SMART Know When Antibiotics Work U.S. Department of Health and Human Services Centers for Disease Control and Prevention April 2014 [facility] Influenza A&B Rapidon 2018 Influenza A Negative [place] Negative [facility] Comment on above: Performed By: #### [id number] #### [facility] (DEFAULT) [address] [place] [address] Influenza B Negative [facility] Comment on above: Performed By: #### 6 [id number] #### [facility] (DEFAULT) [address] [place] [id number] Internal QC [place]? Pass [facility] Comment on above: Performed By: #### 6 [id number] #### [facility] (DEFAULT) [address] [place] [id number] Strep Aon 10-06-2018 Strep A Negative [facility] Comment on above: Performed By: #### [id number] #### [facility] (DEFAULT) [address] [place] [id number] Strep procedure control Pass [facility] Comment on above: Performed By: #### 6 [id number] #### [facility] (DEFAULT) [address] [place] [id number] Urgent [facility] [place] [address] [facility] ? Urgent Care [address] [place] [address] PATIENT DISCHARGE INSTRUCTIONS Patient Information Name: PAMELA DAVISON Age: 23 Years Date of : [birth year] Reason For Visit: UC - Sore Throat; SORE THROAT Arrival Time: 10/06/18 17:13:00 Primary Care Physician: Provider, None Attending Physician: Grant Gunn Comment: Visit Diagnosis: Diagnoses This Visit Acute pharyngitis (J02.9) Acute tonsillitis (J03.90) Anterior cervical lymphadenopathy (R59.0) Myalgia (M79.10) UC - Sore Throat ([id number]) If you received any narcotics, sedation, or any other medication that causes drowsiness for the next 24 hours, unless otherwise directed: ? Do not drive a car. ? Do not operate machinery such as power tools, lawn mowers, drills, sewing machines, or stoves ? Avoid alcoholic beverages and drugs for allergies, nerves, or sleep ? Do not make important personal or business decisions or sign any legal documents With: Address: When: None Provider Within As needed Comments: Your throat sore throat and cough is most bothersome today. Your rapid strep test was negative. Throat culture will return in 3 days and if positive for bacterial infection you be notified by telephone so an antibiotic can be prescribed. Your influenza A/B test was negative. You have a low grade temp with ibuprofen on board. You were given a dose of oral Decadron which is a steroid to help with the swelling and pain in you throat which will help for 3 days. Consider additional use of Chloraseptic spray, salt water gargle, cool liquids. Ibuprofen 600 mg every 8 hours will help for the pain and discomfort if needed. You may also use Tylenol 500mg every 4-6 hours for additional pain relief. Please return for medical care if fever over 101.5, difficulty swallowing, swelling on only one side of your neck or back of throat, muffled voice, drooling, progressive symptoms, chest pain, shortness breath, abdominal pain, nausea, vomiting, diarrhea. Medication Information: The exam and treatment you received today in the [facility] were for an urgent problem and are not intended as complete care. It is important for you to follow up with a doctor, nurse practitioner, or physician?s respiratory equipment assistant for ongoing care. If your symptoms become worse or you do not improve as expected and you are unable to reach your usual health care provider, you should return to the Emergency Department, we are available 24 hours a day. For those patients who have received Radiology results, the interpretation of your X-ray as given to you by our Urgent Care physician is only a preliminary report. The Radiologist will review your films and if there is a change in the diagnosis you will be notified by phone. Please make sure you have provided a working phone number so we can reach you if necessary. In the event that you had a lab culture while you were a patient in the Urgent Care, you will be notified by phone if there is a need to change your antibiotic. Please make sure you have provided a working phone number so we can reach you if necessary. [facility] has provided you with a complete list of medications post discharge. 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 Any specific questions regarding your chronic medications and dosages should be discussed with your primary care physician(s) and/or pharmacist. New Medications [facility], [address] [place] [address] [phone], [phone] amoxicillin (amoxicillin 500 mg oral tablet) 1 tab(s) Oral 3 times a day for 10 Days. Refills: 0. Medications to Continue That Have Not Changed Other Medications albuterol (ProAir HFA) 2 puff(s) Inhalation 4 times a day. Visit Information Allergies: Substance Reaction Symptoms Type Comments No Known Medication Allergies Drug Vital Signs: Vitals and Measurements this Visit (last charted value for your 10/06/2018 visit) Vital Signs This Visit Temperature Oral: 37.2 DegC Peripheral Pulse Rate: 72 bpm Respiratory Rate: 16 br/min Systolic Blood Pressure: 110 mmHg Diastolic Blood Pressure: 60 mmHg Problems List: Problem Onset Comments Anemia Asthma Ingrown nail of great toe of left foot Migraine Patient Education Tonsillitis Tonsillitis is an infection of the throat that causes the tonsils to become red, tender, and swollen. Tonsils are collections of lymphoid tissue at the back of the throat. Each tonsil has crevices (crypts). Tonsils help fight nose and throat infections and keep infection from spreading to other parts of the body for the first 18 months of life. What are the causes? Sudden (acute) tonsillitis is usually caused by infection with streptococcal bacteria. Long-lasting (chronic) tonsillitis occurs when the crypts of the tonsils become filled with pieces of food and bacteria, which makes it easy for the tonsils to become repeatedly infected. What are the signs or symptoms? Symptoms of tonsillitis include: ? A sore throat, with possible difficulty swallowing. ? White patches on the tonsils. ? Fever. ? Tiredness. ? New episodes of snoring during sleep, when you did not snore before. ? Small, foul-smelling, yellowish-white pieces of material (tonsilloliths) that you occasionally cough up or spit out. The tonsilloliths can also cause you to have bad breath. How is this diagnosed? Tonsillitis can be diagnosed through a physical exam. Diagnosis can be confirmed with the results of lab tests, including a throat culture. How is this treated? The goals of tonsillitis treatment include the reduction of the severity and duration of symptoms and prevention of associated conditions. Symptoms of tonsillitis can be improved with the use of steroids to reduce the swelling. Tonsillitis caused by bacteria can be treated with antibiotic medicines. Usually, treatment with antibiotic medicines is started before the cause of the tonsillitis is known. However, if it is determined that the cause is not bacterial, antibiotic medicines will not treat the tonsillitis. If attacks of tonsillitis are severe and frequent, your health care provider may recommend surgery to remove the tonsils (tonsillectomy). Follow these instructions at home: ? Rest as much as possible and get plenty of sleep. ? Drink plenty of fluids. While the throat is very sore, eat soft foods or liquids, such as sherbet, soups, or instant breakfast drinks. ? Eat frozen ice pops. ? Gargle with a warm or cold liquid to help soothe the throat. Mix 1/4 teaspoon of salt and 1/4 teaspoon of baking soda in 8 oz of water. Contact a health care provider if: ? Large, tender lumps develop in your neck. ? A rash develops. ? A green, yellow-brown, or bloody substance is coughed up. ? You are unable to swallow liquids or food for 24 hours. ? You notice that only one of the tonsils is swollen. Get help right away if: ? You develop any new symptoms such as vomiting, severe headache, stiff neck, chest pain, or trouble breathing or swallowing. ? You have severe throat pain along with drooling or voice changes. ? You have severe pain, unrelieved with recommended medications. ? You are unable to fully open the mouth. ? You develop redness, swelling, or severe pain anywhere in the neck. ? You have a fever. This information is not intended to replace advice given to you by your health care provider. Make sure you discuss any questions you have with your health care provider. Document Released: 05/03/2006 Document Revised: 12/29/2016 Document Reviewed: 01/10/2014 [employer] Interactive Patient Education ? 2017 [employer]. Viruses or Bacteria What?s got you sick? Antibiotics only treat bacterial infections. Viral illnesses cannot be treated with antibiotics. When an antibiotic is not prescribed, ask your healthcare professional for tips on how to relieve symptoms and feel better. Usual Cause Illness Viruses Bacteria Antibiotic Needed Cold/Runny Nose NO Bronchitis/Chest Cold (in otherwise healthy children and adults) NO Whooping Cough Yes Flu NO Strep Throat Yes Sore Throat (except strep) NO Fluid in the middle ear (otitis media with effusion) NO Urinary Tract Infection Yes Antibiotics Aren?t Always the Answer www.cdc.gov/getsmar t GET SMART Know When Antibiotics Work U.S. Department of Health and Human Services Centers for Disease Control and Prevention April [address] [facility] C Throaton 09-17-2018 C Throat Ordered by Discern. Normal throat geovanna isolated No pathogens isolated [facility] Comment on above: Performed By: #### [id number] #### [facility] (DEFAULT) [address] [place] [address] Coding Summaryon 09-17-2018 Coding Summary CODING DATE: 09/17/2018 [facility] STATUS: Home PAYOR: Medicaid HMO ADMIT DX: REASON FOR VISIT DX: J02.9 Acute pharyngitis, unspecified H92.03 Otalgia, bilateral FINAL DX: PRINCIPAL: J02.9 Acute pharyngitis, unspecified SECONDARY: J06.9 Acute upper respiratory infection, unspecified J45.909 Unspecified asthma, uncomplicated PROCEDURES DOCTOR NAME DATE NOTE: The code number assigned matches the documented diagnosis and / or procedure in the patient's chart. However, the narrative phrase printed from the coding software may appear abbreviated, or result in slightly different terminology. Revised Coded By: Traci Larson Revised Date Saved: 09/17/2018 08:54 am [facility] ED Clinical Summaryon [address] [facility] ? Urgent Care [address] [id number] Clinical Summary PERSON INFORMATION Name: PAMELA DAVISON Age: 23 Years Sex: FEMALE : [birth year] MRN: Acct#: Visit Reason: UC - Sinus Pain or Congestion; UC - Sinus Pain or Congestion; SORE THROAT Arrival: 09/15/18 09:32:00 Discharge: 09/15/18 10:35:00 LOS: 000 01:03 Check In: 09/15/18 09:32:00 Checkout: 09/15/18 10:35:00 Address: [address] [place] [address] PCP: Provider, None PROVIDER INFORMATION Provider Role Assigned Unassigned Grant Gunn ED PA 09/15/18 09:38:38 Julianne Robledo ED Nurse 09/15/18 09:39:10 VITALS INFORMATION Vital Sign Triage Latest Temperature Tympanic Temperature Temporal Artery Pulse Rate 72 bpm 72 bpm O2 Sat Respiratory Rate 16 br/min 16 br/min Blood Pressure 116 mmHg/60 mmHg 116 mmHg/60 mmHg MEDICAL INFORMATION Medications Given: Allergy Information: No Known Medication Allergies PHYSICIAN DOCUMENTATION DISCHARGE INFORMATION: Discharge Disposition: Home Discharge Location: Home PATIENT EDUCATION INFORMATION Instructions: Bronchospasm, Adult; Upper Respiratory Infection, Adult Follow-Up: With: Address: When: None Provider Comments: You have been diagnosed with viral bronchitis and viral upper respiratory tract infection. Your rapid strep test was negative. Urine influenza A/B swab was negative. . Allow 7-10 days for this to improve with conservative measures. Push fluids, increase rest. Begin Tessalon Perles every 8 hours as needed for cough, medrol dose pack for lung inflammation and asthmatic bronchitis. Return for additional medical care if not improved, fever greater than 101.5, pain with inspiration, lightheadedness, shortness of breath, worsening symptoms of any sort. DIAGNOSIS: Acute asthmatic bronchitis; Cough; Viral upper respiratory tract infection with cough Patient Understands: Yes - Patient/family/critical care specialist verbalizes understanding of instructions given Comment: [facility] ED Note - Physicianon 2018 ED Note - Physician Patient: PAMELA DAVISON Age: 23 years Sex: FEMALE : [birth year] Associated Diagnoses: Viral upper respiratory tract infection with cough; Acute asthmatic bronchitis Author: Grant Gunn Basic Information Time seen: Date & time 09/15/18 09:39:00. History source: Patient. Arrival mode: Walking. History limitation: None. Pamela is a pleasant, overweight, 23-year-old white female who reports onset 09/13/18 of a scratchy, persistant, sore throat that has remained constant. Patient states that now she has pressure in both her maxillary and frontal sinuses, pressure in both of her ears. Today her biggest concern is her tightness in the chest, cough. Patient states this moring she had one episode of green mucus phlegm expectorated from her lungs. Patient states her asthma has been worse the past 2 days. Patient states she required albuterol metered-dose inhaler 2 puffs 3 times yesterday which improved her wheezing. She has not used albuterol today thus far, patient states she does not feel wheezing at this time. She has not checked her temperature at home, reports chills and feeling flushed. Patient is currently afebrile without antipyretics, normal pulse oximetry. On review of systems she reports having softer stool than normal, nausea, no vomiting. Patient states she is babysitting her 2 nephews who have both recently been diagnosed with positive strep and pneumonia. Patient states her daughter has been ill the past 3-5 days and her illness has self resolved. Review of Systems Constitutional symptoms: Chills, decreased activity, no fever, no sweats, no fatigue. Skin symptoms: No rash, no breakdown, no lesion. Eye symptoms: No recent vision problems, no blurred vision. ENMT symptoms: Sore throat, nasal congestion, sinus pain, pressure in both ears, Scratchy sore throat, drainage in back of throat. Respiratory symptoms: Cough, No shortness of breath, Cardiovascular symptoms: No chest pain, no palpitations. Gastrointestinal symptoms: Nausea, Stool softer than normal, no abdominal pain, no vomiting, no diarrhea. Genitourinary symptoms: No dysuria, Musculoskeletal symptoms: No back pain, no Muscle pain. Neurologic symptoms: No headache, no dizziness, no altered level of consciousness, no numbness, no tingling, no weakness. Psychiatric symptoms: No anxiety, no depression. Allergy/immunologic symptoms: No recurrent infections, no impaired immunity. Health Status Allergies: Allergic Reactions (Selected) No Known Medication Allergies. Medications: (Selected) Documented Medications Documented ProAir HFA: 2 puff(s), INH, QID, 0 Refill(s). Past Medical/ Family/ Social History Medical history: Resolved Smoker 06-FEB-2014 12:37:00<$> ([id number]) : Resolved. Comments: - Added secondary to documentation in Social History. H/O: kidney infection ([id number]): Resolved.. Surgical history: No active procedure history items have been selected or recorded.. Family history: No family history items have been selected or recorded.. Social history: Social & Psychosocial Habits Tobacco 09/15/2018 Smoking tobacco use: Former smoker, quit more . Problem list: Active Problems (4) Anemia Asthma Ingrown nail of great toe of left foot Migraine . Physical Examination Vital Signs Vital Signs 09/15/18 09:40 EST Temperature Oral 36.8 DegC Peripheral Pulse Rate 72 bpm Respiratory Rate 16 br/min Systolic Blood Pressure 116 mmHg Diastolic Blood Pressure 60 mmHg . Oxygen saturation: 97 %. General: Alert, no acute distress, Patient appears well, nontoxic, no coughing while in urgent care, no retractions noted difficulty breathing. . Skin: Warm, dry. Head: Normocephalic, atraumatic. Neck: Supple, trachea midline. Eye: Pupils are equal, round and reactive to light, extraocular movements are intact, normal conjunctiva. Ears, nose, mouth and throat: Tympanic membranes clear, oral mucosa moist, no pharyngeal erythema or exudate, Sinus: Frontal, maxillary, mild, tenderness, Nose: Moderate, discharge, swelling. Cardiovascular: Regular rate and rhythm, No murmur. Respiratory: Lungs are clear to auscultation, respirations are non-labored, breath sounds are equal, No wheezing, rales, rhonchi.. Gastrointestinal: Soft, Nontender, Non distended, Normal bowel sounds. Back: Nontender. Neurological: Alert and oriented to person, place, time, and situation, No focal neurological deficit observed. Lymphatics: Exam: not anterior cervical, not posterior cervical. Psychiatric: Cooperative, appropriate mood & affect, normal judgment. Medical Decision Making Orders Launch Orders Laboratory: Rapid Flu A&B (Order): Nasopharyngeal Swab, Collected, 09/15/18 09:53 EST by Grant Gunn, Routine collect, Nurse collect Rapid Strep (Order): Throat, Collected, 09/15/18 09:53 EST by Grant Gunn, Stat collect, Nurse collect. Results review: Lab results : Lab Flowsheet 09/15/18 09:53 EST Strep A Negative Influenza A Negative Influenza B Negative . 2 days of congestion, sore throat, cough, asthma exacerbation with wheezing yesterday that responded to albuterol. Diagnosis of viral asthmatic bronchitis and viral upper respiratory tract infection. Rapid strep test was negative. Influenza A/B swab was negative. Allow 7-10 days for this to improve with conservative measures. Push fluids, increase rest. Begin Tessalon Perles every 8 hours as needed for cough, medrol dose pack for lung inflammation and asthmatic bronchitis Impression and Plan Diagnosis Sore throat (YYE58-NC J02.9, Discharge, Medical) Viral upper respiratory tract infection with cough (WPS12-VL J06.9, Discharge, Medical) Acute asthmatic bronchitis (CMA41-SV J45.909, Discharge, Medical) Plan Disposition: Discharged: Time 09/15/18 10:30:00, to home. Prescriptions: Launch prescriptions Pharmacy: Tessalon Perles 100 mg oral capsule (Prescribe): 100 mg = 1 cap(s), PO, TID, for 7 day(s), 21 cap(s), 0 Refill(s) Medrol Dosepak 4 mg oral tablet (Prescribe): 1 packet(s), PO, Once, as directed on package labeling, 21 tab(s), 0 Refill(s). Patient was given the following educational materials: Upper Respiratory Infection, Adult, Bronchospasm, Adult, Bronchospasm, Adult, Upper Respiratory Infection, Adult, Bronchospasm, Adult, Upper Respiratory Infection, Adult. Limitations: No work, For 1 days. Follow up with: None Provider You have been diagnosed with viral bronchitis and viral upper respiratory tract infection. Your rapid strep test was negative. Urine influenza A/B swab was negative. . Allow 7-10 days for this to improve with conservative measures. Push fluids, increase rest. Begin Tessalon Perles every 8 hours as needed for cough, medrol dose pack for lung inflammation and asthmatic bronchitis. Return for additional medical care if not improved, fever greater than 101.5, pain with inspiration, lightheadedness, shortness of breath, worsening symptoms of any sort.. Counseled: Patient, Regarding diagnosis, Regarding diagnostic results, Regarding treatment plan, Regarding prescription, Patient indicated understanding of instructions. [Electronically Signed on: 09/15/2018 15:14 EST] __ Grant Gunn [Verified on: 09/15/2018 15:14 EST] __ Grant Gunn Normal [facility] ED Patient Summaryon [address] [facility] ? Urgent Care [address] [place] [address] PATIENT DISCHARGE INSTRUCTIONS Patient Information Name: PAMELA DAVISON Age: 23 Years Date of : [birth year] Reason For Visit: UC - Sinus Pain or Congestion; UC - Sinus Pain or Congestion; SORE THROAT Arrival Time: 09/15/18 09:32:00 Primary Care Physician: Provider, None Attending Physician: Grant Gunn Comment: Patient Education With: Address: When: None Provider Comments: You have been diagnosed with viral bronchitis and viral upper respiratory tract infection. Your rapid strep test was negative. Urine influenza A/B swab was negative. . Allow 7-10 days for this to improve with conservative measures. Push fluids, increase rest. Begin Tessalon Perles every 8 hours as needed for cough, medrol dose pack for lung inflammation and asthmatic bronchitis. Return for additional medical care if not improved, fever greater than 101.5, pain with inspiration, lightheadedness, shortness of breath, worsening symptoms of any sort. Bronchospasm, Adult Bronchospasm is a tightening of the airways going into the lungs. During an episode, it may be harder to breathe. You may cough, and you may make a whistling sound when you breathe (wheeze). This condition often affects people with asthma. What are the causes? This condition is caused by swelling and irritation in the airways. It can be triggered by: ? An infection (common). ? Seasonal allergies. ? An allergic reaction. ? Exercise. ? Irritants. These include pollution, cigarette smoke, strong odors, aerosol sprays, and paint fumes. ? Weather changes. Winds increase molds and pollens in the air. Cold air may cause swelling. ? Stress and emotional upset. What are the signs or symptoms? Symptoms of this condition include: ? Wheezing. If the episode was triggered by an allergy, wheezing may start right away or hours later. ? Nighttime coughing. ? Frequent or severe coughing with a simple cold. ? Chest tightness. ? Shortness of breath. ? Decreased ability to exercise. How is this diagnosed? This condition is usually diagnosed with a review of your medical history and a physical exam. Tests, such as lung function tests, are sometimes done to look for other conditions. The need for a chest X-ray depends on where the wheezing occurs and whether it is the first time you have wheezed. How is this treated? This condition may be treated with: ? Inhaled medicines. These open up the airways and help you breathe. They can be taken with an inhaler or a nebulizer device. ? Corticosteroid medicines. These may be given for severe bronchospasm, usually when it is associated with asthma. ? Avoiding triggers, such as irritants, infection, or allergies. Follow these instructions at home: Medicines ? Take ovfc-rvz-orprxpp and prescription medicines only as told by your health care provider. ? If you need to use an inhaler or nebulizer to take your medicine, ask your health care provider to explain how to use it correctly. If you were given a spacer, always use it with your inhaler. Lifestyle ? Reduce the number of triggers in your home. To do this: ? Change your heating and air conditioning filter at least once a month. ? Limit your use of fireplaces and wood stoves. ? Do not smoke. Do not allow smoking in your home. ? Avoid using perfumes and fragrances. ? Get rid of pests, such as roaches and mice, and their droppings. ? Remove any mold from your home. ? Keep your house clean and dust free. Use unscented cleaning products. ? Replace carpet with wood, tile, or vinyl nhan. Carpet can trap dander and dust. ? Use allergy-proof pillows, mattress covers, and box spring covers. ? Wash bed sheets and blankets every week in hot water. Dry them in a dryer. ? Use blankets that are made of polyester or cotton. ? Wash your hands often. ? Do not allow pets in your bedroom. ? Avoid breathing in cold air when you exercise. General instructions ? Have a plan for seeking medical care. Know when to call your health care provider and local emergency services, and where to get emergency care. ? Stay up to date on your immunizations. ? When you have an episode of bronchospasm, stay calm. Try to relax and breathe more slowly. ? If you have asthma, make sure you have an asthma action plan. ? Keep all follow-up visits as told by your health care provider. This is important. Contact a health care provider if: ? You have muscle aches. ? You have chest pain. ? The mucus that you cough up (sputum) changes from clear or white to yellow, green, weiss, or bloody. ? You have a fever. ? Your sputum gets thicker. Get help right away if: ? Your wheezing and coughing get worse, even after you take your prescribed medicines. ? It gets even harder to breathe. ? You develop severe chest pain. Summary ? Bronchospasm is a tightening of the airways going into the lungs. ? During an episode of bronchospasm, you may have a harder time breathing. You may cough and make a whistling sound when you breathe (wheeze). ? Avoid exposure to triggers such as smoke, dust, mold, animal dander, and fragrances. ? When you have an episode of bronchospasm, stay calm. Try to relax and breathe more slowly. This information is not intended to replace advice given to you by your health care provider. Make sure you discuss any questions you have with your health care provider. Document Released: 07/26/2004 Document Revised: 07/20/2017 Document Reviewed: 07/20/2017 [employer] Interactive Patient Education ? 2017 [employer] Upper Respiratory Infection, Adult Most upper respiratory infections (URIs) are a viral infection of the air passages leading to the lungs. A URI affects the nose, throat, and upper air passages. The most common type of URI is nasopharyngitis and is typically referred to as the common cold. URIs run their course and usually go away on their own. Most of the time, a URI does not require medical attention, but sometimes a bacterial infection in the upper airways can follow a viral infection. This is called a secondary infection. Sinus and middle ear infections are common types of secondary upper respiratory infections. Bacterial pneumonia can also complicate a URI. A URI can worsen asthma and chronic obstructive pulmonary disease (COPD). Sometimes, these complications can require emergency medical care and may be life threatening. What are the causes? Almost all URIs are caused by viruses. A virus is a type of germ and can spread from one person to another. What increases the risk? You may be at risk for a URI if: ? You smoke. ? You have chronic heart or lung disease. ? You have a weakened defense (immune) system. ? You are very young or very old. ? You have nasal allergies or asthma. ? You work in crowded or poorly ventilated areas. ? You work in health care facilities or schools. What are the signs or symptoms? Symptoms typically develop 2?3 days after you come in contact with a cold virus. Most viral URIs last 7?10 days. However, viral URIs from the influenza virus (flu virus) can last 14?18 days and are typically more severe. Symptoms may include: ? Runny or stuffy (congested) nose. ? Sneezing. ? Cough. ? Sore throat. ? Headache. ? Fatigue. ? Fever. ? Loss of appetite. ? Pain in your forehead, behind your eyes, and over your cheekbones (sinus pain). ? Muscle aches. How is this diagnosed? Your health care provider may diagnose a URI by: ? Physical exam. ? Tests to check that your symptoms are not due to another condition such as: ? Strep throat. ? Sinusitis. ? Pneumonia. ? Asthma. How is this treated? A URI goes away on its own with time. It cannot be cured with medicines, but medicines may be prescribed or recommended to relieve symptoms. Medicines may help: ? Reduce your fever. ? Reduce your cough. ? Relieve nasal congestion. Follow these instructions at home: ? Take medicines only as directed by your health care provider. ? Gargle warm saltwater or take cough drops to comfort your throat as directed by your health care provider. ? Use a warm mist humidifier or inhale steam from a shower to increase air moisture. This may make it easier to breathe. ? Drink enough fluid to keep your urine clear or pale yellow. ? Eat soups and other clear broths and maintain good nutrition. ? Rest as needed. ? Return to work when your temperature has returned to normal or as your health care provider advises. You may need to stay home longer to avoid infecting others. You can also use a face mask and careful hand washing to prevent spread of the virus. ? Increase the usage of your inhaler if you have asthma. ? Do not use any tobacco products, including cigarettes, chewing tobacco, or electronic cigarettes. If you need help quitting, ask your health care provider. How is this prevented? The best way to protect yourself from getting a cold is to practice good hygiene. ? Avoid oral or hand contact with people with cold symptoms. ? Wash your hands often if contact occurs. There is no clear evidence that vitamin C, vitamin E, echinacea, or exercise reduces the chance of developing a cold. However, it is always recommended to get plenty of rest, exercise, and practice good nutrition. Contact a health care provider if: ? You are getting worse rather than better. ? Your symptoms are not controlled by medicine. ? You have chills. ? You have worsening shortness of breath. ? You have brown or red mucus. ? You have yellow or brown nasal discharge. ? You have pain in your face, especially when you bend forward. ? You have a fever. ? You have swollen neck glands. ? You have pain while swallowing. ? You have white areas in the back of your throat. Get help right away if: ? You have severe or persistent: ? Headache. ? Ear pain. ? Sinus pain. ? Chest pain. ? You have chronic lung disease and any of the following: ? Wheezing. ? Prolonged cough. ? Coughing up blood. ? A change in your usual mucus. ? You have a stiff neck. ? You have changes in your: ? Vision. ? Hearing. ? Thinking. ? Mood. This information is not intended to replace advice given to you by your health care provider. Make sure you discuss any questions you have with your health care provider. Document Released: 01/17/2002 Document Revised: 03/26/2017 Document Reviewed: 10/29/2014 [employer] Interactive Patient Education ? 2017 [employer] Medication Information: The exam and treatment you received today in the [facility] Emergency Department were for an urgent problem and are not intended as complete care. It is important for you to follow up with a doctor, nurse practitioner, or physician?s respiratory equipment assistant for ongoing care. If your symptoms become worse or you do not improve as expected and you are unable to reach your usual health care provider, you should return to the Emergency Department, we are available 24 hours a day. For those patients who have received Radiology results, the interpretation of your X-ray as given to you by our Emergency Department physician is only a preliminary report. The Radiologist will review your films and if there is a change in the diagnosis you will be notified by phone. Please make sure you have provided a working phone number so we can reach you if necessary. In the event that you had a lab culture while you were a patient in the Emergency Department, you will be notified by phone if there is a need to change your antibiotic. Please make sure you have provided a working phone number so we can reach you if necessary. [facility] Emergency Department has provided you with a complete list of medications post discharge. 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 Any specific questions regarding your chronic medications and dosages should be discussed with your primary care physician(s) and/or pharmacist. New Medications [facility], [address] [place] [address] [phone], [phone] benzonatate (Tessalon Perles 100 mg oral capsule) 1 cap(s) Oral 3 times a day for 7 Days. Refills: 0. methylPREDNISolone (Medrol Dosepak 4 mg oral tablet) 1 packet(s) Oral once. as directed on package labeling. Refills: 0. Medications to Continue That Have Not Changed Other Medications albuterol (ProAir HFA) 2 puff(s) Inhalation 4 times a day. Visit Information Visit Diagnosis: Diagnoses This Visit Acute asthmatic bronchitis (J45.909) Cough (R05) UC - Sinus Pain or Congestion ([id number]) UC - Sinus Pain or Congestion ([id number]) Viral upper respiratory tract infection with cough (J06.9) If you received any narcotics, sedation, or any other medication that causes drowsiness for the next 24 hours, unless otherwise directed: ? Do not drive a car. ? Do not operate machinery such as power tools, lawn mowers, drills, sewing machines, or stoves ? Avoid alcoholic beverages and drugs for allergies, nerves, or sleep ? Do not make important personal or business decisions or sign any legal documents Reason for Visit: 3 days sinus congestion sore throat and bilateral ear pain Allergies: Substance Reaction Symptoms Type Comments No Known Medication Allergies Drug Vital Signs: Vitals and Measurements this Visit (last charted value for your 09/15/2018 visit) Vital Signs This Visit Temperature Oral: 36.8 DegC Peripheral Pulse Rate: 72 bpm Respiratory Rate: 16 br/min Systolic Blood Pressure: 116 mmHg Diastolic Blood Pressure: 60 mmHg Measurements This Visit Height: 160.000 cm Height/Length Dosin.000 cm Weight: 100.700 kg Weight Dosin.700 kg Problems List: Problem Onset Comments Anemia Asthma Ingrown nail of great toe of left foot Migraine Major Tests and Procedures: The following procedures and tests were performed during your ED visit. Laboratory Rapid Flu A&B Nasopharyngeal Swab, Collected, 09/15/18 9:53:00 EST by Grant Gunn, Routine collect, Stop date 09/15/18 9:53:00 EST, Nurse collect Rapid Strep Throat, Collected, 09/15/18 9:53:00 EST by Grant Gunn, Stat collect, Stop date 09/15/18 9:53:00 EST, Nurse collect Throat Culture Throat, Collected, 09/15/18 9:53:00 EST by Grant Gunn, Stat collect, Stop date 09/15/18 9:53:00 EST, Nurse collect, [id number] Radiology Cardiology Viruses or Bacteria What?s got you sick? Antibiotics only treat bacterial infections. Viral illnesses cannot be treated with antibiotics. When an antibiotic is not prescribed, ask your healthcare professional for tips on how to relieve symptoms and feel better. Usual Cause Illness Viruses Bacteria Antibiotic Needed Cold/Runny Nose NO Bronchitis/Chest Cold (in otherwise healthy children and adults) NO Whooping Cough Yes Flu NO Strep Throat Yes Sore Throat (except strep) NO Fluid in the middle ear (otitis media with effusion) NO Urinary Tract Infection Yes Antibiotics Aren?t Always the Answer www.cdc.gov/getsmar t GET SMART Know When Antibiotics Work [place].S[place] Department of Health and Human Services Centers for Disease Control and Prevention April 2014 [facility] Influenza A&B Rapidon 2018 Influenza A Negative Normal Negative [facility] Comment on above: Performed By: #### 1 [id number] #### [facility] (DEFAULT) [address] [place] [address] Influenza B Negative Normal Negative [facility] Comment on above: Performed By: #### 1 [id number] #### [facility] (DEFAULT) [address] [place] [address] Internal QC OK? Pass [facility] Comment on above: Performed By: #### 1 [id number] #### [facility] (DEFAULT) [address] [place] [address] Strep Aon 09-15-2018 Strep A Negative [facility] Comment on above: Performed By: #### [id number] #### [facility] (DEFAULT) [address] [place] [address] Strep procedure control Pass [facility] Comment on above: Performed By: #### 6 [id number] #### [facility] (DEFAULT) [address] [place] [id number] [facility] [address] [facility] ? Urgent Care [address] [place] [address] PATIENT DISCHARGE INSTRUCTIONS Patient Information Name: PAMELA DAVISON Age: 23 Years Date of : [birth year] Reason For Visit: UC - Sinus Pain or Congestion; UC - Sinus Pain or Congestion; SORE THROAT Arrival Time: 09/15/18 09:32:00 Primary Care Physician: Provider, None Attending Physician: Grant Gunn Comment: Visit Diagnosis: Diagnoses This Visit Acute asthmatic bronchitis (J45.909) Cough (R05) UC - Sinus Pain or Congestion ([id number]) UC - Sinus Pain or Congestion ([id number]) Viral upper respiratory tract infection with cough (J06.9) If you received any narcotics, sedation, or any other medication that causes drowsiness for the next 24 hours, unless otherwise directed: ? Do not drive a car. ? Do not operate machinery such as power tools, lawn mowers, drills, sewing machines, or stoves ? Avoid alcoholic beverages and drugs for allergies, nerves, or sleep ? Do not make important personal or business decisions or sign any legal documents With: Address: When: None Provider Comments: You have been diagnosed with viral bronchitis and viral upper respiratory tract infection. Your rapid strep test was negative. Urine influenza A/B swab was negative. . Allow 7-10 days for this to improve with conservative measures. Push fluids, increase rest. Begin Tessalon Perles every 8 hours as needed for cough, medrol dose pack for lung inflammation and asthmatic bronchitis. Return for additional medical care if not improved, fever greater than 101.5, pain with inspiration, lightheadedness, shortness of breath, worsening symptoms of any sort. Medication Information: The exam and treatment you received today in the [facility] were for an urgent problem and are not intended as complete care. It is important for you to follow up with a doctor, nurse practitioner, or physician?s respiratory equipment assistant for ongoing care. If your symptoms become worse or you do not improve as expected and you are unable to reach your usual health care provider, you should return to the Emergency Department, we are available 24 hours a day. For those patients who have received Radiology results, the interpretation of your X-ray as given to you by our Urgent Care physician is only a preliminary report. The Radiologist will review your films and if there is a change in the diagnosis you will be notified by phone. Please make sure you have provided a working phone number so we can reach you if necessary. In the event that you had a lab culture while you were a patient in the Urgent Care, you will be notified by phone if there is a need to change your antibiotic. Please make sure you have provided a working phone number so we can reach you if necessary. [facility] has provided you with a complete list of medications post discharge. 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 Any specific questions regarding your chronic medications and dosages should be discussed with your primary care physician(s) and/or pharmacist. New Medications [facility], [address] [place] [address] [phone], [phone] benzonatate (Tessalon Perles 100 mg oral capsule) 1 cap(s) Oral 3 times a day for 7 Days. Refills: 0. methylPREDNISolone (Medrol Dosepak 4 mg oral tablet) 1 packet(s) Oral once. as directed on package labeling. Refills: 0. Medications to Continue That Have Not Changed Other Medications albuterol (ProAir HFA) 2 puff(s) Inhalation 4 times a day. Visit Information Allergies: Substance Reaction Symptoms Type Comments No Known Medication Allergies Drug Vital Signs: Vitals and Measurements this Visit (last charted value for your 09/15/2018 visit) Vital Signs This Visit Temperature Oral: 36.8 DegC Peripheral Pulse Rate: 72 bpm Respiratory Rate: 16 br/min Systolic Blood Pressure: 116 mmHg Diastolic Blood Pressure: 60 mmHg Measurements This Visit Height: 160.000 cm Height/Length Dosin.000 cm Weight: 100.700 kg Weight Dosin.700 kg Problems List: Problem Onset Comments Anemia Asthma Ingrown nail of great toe of left foot Migraine Patient Education Bronchospasm, Adult Bronchospasm is a tightening of the airways going into the lungs. During an episode, it may be harder to breathe. You may cough, and you may make a whistling sound when you breathe (wheeze). This condition often affects people with asthma. What are the causes? This condition is caused by swelling and irritation in the airways. It can be triggered by: ? An infection (common). ? Seasonal allergies. ? An allergic reaction. ? Exercise. ? Irritants. These include pollution, cigarette smoke, strong odors, aerosol sprays, and paint fumes. ? Weather changes. Winds increase molds and pollens in the air. Cold air may cause swelling. ? Stress and emotional upset. What are the signs or symptoms? Symptoms of this condition include: ? Wheezing. If the episode was triggered by an allergy, wheezing may start right away or hours later. ? Nighttime coughing. ? Frequent or severe coughing with a simple cold. ? Chest tightness. ? Shortness of breath. ? Decreased ability to exercise. How is this diagnosed? This condition is usually diagnosed with a review of your medical history and a physical exam. Tests, such as lung function tests, are sometimes done to look for other conditions. The need for a chest X-ray depends on where the wheezing occurs and whether it is the first time you have wheezed. How is this treated? This condition may be treated with: ? Inhaled medicines. These open up the airways and help you breathe. They can be taken with an inhaler or a nebulizer device. ? Corticosteroid medicines. These may be given for severe bronchospasm, usually when it is associated with asthma. ? Avoiding triggers, such as irritants, infection, or allergies. Follow these instructions at home: Medicines ? Take jcbs-fiw-wsqptft and prescription medicines only as told by your health care provider. ? If you need to use an inhaler or nebulizer to take your medicine, ask your health care provider to explain how to use it correctly. If you were given a spacer, always use it with your inhaler. Lifestyle ? Reduce the number of triggers in your home. To do this: ? Change your heating and air conditioning filter at least once a month. ? Limit your use of fireplaces and wood stoves. ? Do not smoke. Do not allow smoking in your home. ? Avoid using perfumes and fragrances. ? Get rid of pests, such as roaches and mice, and their droppings. ? Remove any mold from your home. ? Keep your house clean and dust free. Use unscented cleaning products. ? Replace carpet with wood, tile, or vinyl nhan. Carpet can trap dander and dust. ? Use allergy-proof pillows, mattress covers, and box spring covers. ? Wash bed sheets and blankets every week in hot water. Dry them in a dryer. ? Use blankets that are made of polyester or cotton. ? Wash your hands often. ? Do not allow pets in your bedroom. ? Avoid breathing in cold air when you exercise. General instructions ? Have a plan for seeking medical care. Know when to call your health care provider and local emergency services, and where to get emergency care. ? Stay up to date on your immunizations. ? When you have an episode of bronchospasm, stay calm. Try to relax and breathe more slowly. ? If you have asthma, make sure you have an asthma action plan. ? Keep all follow-up visits as told by your health care provider. This is important. Contact a health care provider if: ? You have muscle aches. ? You have chest pain. ? The mucus that you cough up (sputum) changes from clear or white to yellow, green, weiss, or bloody. ? You have a fever. ? Your sputum gets thicker. Get help right away if: ? Your wheezing and coughing get worse, even after you take your prescribed medicines. ? It gets even harder to breathe. ? You develop severe chest pain. Summary ? Bronchospasm is a tightening of the airways going into the lungs. ? During an episode of bronchospasm, you may have a harder time breathing. You may cough and make a whistling sound when you breathe (wheeze). ? Avoid exposure to triggers such as smoke, dust, mold, animal dander, and fragrances. ? When you have an episode of bronchospasm, stay calm. Try to relax and breathe more slowly. This information is not intended to replace advice given to you by your health care provider. Make sure you discuss any questions you have with your health care provider. Document Released: 07/26/2004 Document Revised: 07/20/2017 Document Reviewed: 07/20/2017 [employer] Interactive Patient Education ? 2017 [employer] Upper Respiratory Infection, Adult Most upper respiratory infections (URIs) are a viral infection of the air passages leading to the lungs. A URI affects the nose, throat, and upper air passages. The most common type of URI is nasopharyngitis and is typically referred to as the common cold. URIs run their course and usually go away on their own. Most of the time, a URI does not require medical attention, but sometimes a bacterial infection in the upper airways can follow a viral infection. This is called a secondary infection. Sinus and middle ear infections are common types of secondary upper respiratory infections. Bacterial pneumonia can also complicate a URI. A URI can worsen asthma and chronic obstructive pulmonary disease (COPD). Sometimes, these complications can require emergency medical care and may be life threatening. What are the causes? Almost all URIs are caused by viruses. A virus is a type of germ and can spread from one person to another. What increases the risk? You may be at risk for a URI if: ? You smoke. ? You have chronic heart or lung disease. ? You have a weakened defense (immune) system. ? You are very young or very old. ? You have nasal allergies or asthma. ? You work in crowded or poorly ventilated areas. ? You work in health care facilities or schools. What are the signs or symptoms? Symptoms typically develop 2?3 days after you come in contact with a cold virus. Most viral URIs last 7?10 days. However, viral URIs from the influenza virus (flu virus) can last 14?18 days and are typically more severe. Symptoms may include: ? Runny or stuffy (congested) nose. ? Sneezing. ? Cough. ? Sore throat. ? Headache. ? Fatigue. ? Fever. ? Loss of appetite. ? Pain in your forehead, behind your eyes, and over your cheekbones (sinus pain). ? Muscle aches. How is this diagnosed? Your health care provider may diagnose a URI by: ? Physical exam. ? Tests to check that your symptoms are not due to another condition such as: ? Strep throat. ? Sinusitis. ? Pneumonia. ? Asthma. How is this treated? A URI goes away on its own with time. It cannot be cured with medicines, but medicines may be prescribed or recommended to relieve symptoms. Medicines may help: ? Reduce your fever. ? Reduce your cough. ? Relieve nasal congestion. Follow these instructions at home: ? Take medicines only as directed by your health care provider. ? Gargle warm saltwater or take cough drops to comfort your throat as directed by your health care provider. ? Use a warm mist humidifier or inhale steam from a shower to increase air moisture. This may make it easier to breathe. ? Drink enough fluid to keep your urine clear or pale yellow. ? Eat soups and other clear broths and maintain good nutrition. ? Rest as needed. ? Return to work when your temperature has returned to normal or as your health care provider advises. You may need to stay home longer to avoid infecting others. You can also use a face mask and careful hand washing to prevent spread of the virus. ? Increase the usage of your inhaler if you have asthma. ? Do not use any tobacco products, including cigarettes, chewing tobacco, or electronic cigarettes. If you need help quitting, ask your health care provider. How is this prevented? The best way to protect yourself from getting a cold is to practice good hygiene. ? Avoid oral or hand contact with people with cold symptoms. ? Wash your hands often if contact occurs. There is no clear evidence that vitamin C, vitamin E, echinacea, or exercise reduces the chance of developing a cold. However, it is always recommended to get plenty of rest, exercise, and practice good nutrition. Contact a health care provider if: ? You are getting worse rather than better. ? Your symptoms are not controlled by medicine. ? You have chills. ? You have worsening shortness of breath. ? You have brown or red mucus. ? You have yellow or brown nasal discharge. ? You have pain in your face, especially when you bend forward. ? You have a fever. ? You have swollen neck glands. ? You have pain while swallowing. ? You have white areas in the back of your throat. Get help right away if: ? You have severe or persistent: ? Headache. ? Ear pain. ? Sinus pain. ? Chest pain. ? You have chronic lung disease and any of the following: ? Wheezing. ? Prolonged cough. ? Coughing up blood. ? A change in your usual mucus. ? You have a stiff neck. ? You have changes in your: ? Vision. ? Hearing. ? Thinking. ? Mood. This information is not intended to replace advice given to you by your health care provider. Make sure you discuss any questions you have with your health care provider. Document Released: 01/17/2002 Document Revised: 03/26/2017 Document Reviewed: 10/29/2014 [employer] Patient Education ? 2017 [employer] Viruses or Bacteria What?s got you sick? Antibiotics only treat bacterial infections. Viral illnesses cannot be treated with antibiotics. When an antibiotic is not prescribed, ask your healthcare professional for tips on how to relieve symptoms and feel better. Usual Cause Illness Viruses Bacteria Antibiotic Needed Cold/Runny Nose NO Bronchitis/Chest Cold (in otherwise healthy children and adults) NO Whooping Cough Yes Flu NO Strep Throat Yes Sore Throat (except strep) NO Fluid in the middle ear (otitis media with effusion) NO Urinary Tract Infection Yes Antibiotics Aren?t Always the Answer www.cdc.gov/getsmar t GET SMART Know When Antibiotics Work [place] Department of Health and Human Services Centers for Disease Control and Prevention April 2014 [facility] Vital Signs Date Time Vital Sign Value Performing Clinician Tavo ibarra 06-24-2024 15:10-0500 Body height 162.6 cm Charlee Fajardocristóbal DRAFTING CLERK Work Phone: [facility] 06-24-2024 15:10-0500 Body mass index (BMI) [Ratio] 28.32 kg/m2 Charlee Scottyvinicioz DRAFTING CLERK Work Phone: [facility] 06-24-2024 15:10-0500 Body temperature 97.81 [degF] Charlee Scottyvinicioz DRAFTING CLERK Work Phone: [facility] 06-24-2024 15:10-0500 Body weight 74.84 kg Charleelily Simonholz DRAFTING CLERK Work Phone: [facility] 06-24-2024 15:10-0500 Diastolic blood pressure 72 mm[Hg] Charlee Aichholz DRAFTING CLERK Work Phone: [facility] 06-24-2024 15:10-0500 Heart rate 75 /min Charlee Scottyhholz DRAFTING CLERK Work Phone: [facility] 06-24-2024 15:10-0500 Respiratory rate 18 /min Charlee Alfredholz DRAFTING CLERK Work Phone: [facility] 06-24-2024 15:10-0500 SaO2% (BldA) [Mass fraction] 100 % Charlee Scottyhholz DRAFTING CLERK Work Phone: [facility] 06-24-2024 15:10-0500 Systolic blood pressure 108 mm[Hg] Charlee Aichholz DRAFTING CLERK Work Phone: [facility] 05-14-2024 15:31-0400 Body height 162.6 cm Charlee Scottyhholz DRAFTING CLERK Work Phone: [facility] 05-14-2024 15:31-0400 Body mass index (BMI) [Ratio] 26.67 kg/m2 Charlee Michael DRAFTING CLERK Work Phone: [facility] 05-14-2024 15:31-0400 Body temperature 98.8 [degF] Charlee Richardz DRAFTING CLERK Work Phone: [facility] 05-14-2024 15:31-0400 Body weight 70.49 kg Charlee Richardz DRAFTING CLERK Work Phone: [facility] 05-14-2024 15:31-0400 Diastolic blood pressure 76 mm[Hg] Charlee Scottyhemilyz DRAFTING CLERK Work Phone: [facility] 05-14-2024 15:31-0400 Heart rate 104 /min Charlee Richardz DRAFTING CLERK Work Phone: [facility] 05-14-2024 15:31-0400 Respiratory rate 18 /min Charlee Richardz DRAFTING CLERK Work Phone: [facility] 05-14-2024 15:31-0400 SaO2% (BldA) [Mass fraction] 99 % Charlee Scottyhemilyz DRAFTING CLERK Work Phone: [facility] 05-14-2024 15:31-0400 Systolic blood pressure 124 mm[Hg] Charlee Alfredemilyz DRAFTING CLERK Work Phone: [facility] Encounters Encounter Date Encounter Type Care Provider Facility Start: 06-24-2024 End: 06-24-2024 Office outpatient visit 15 minutes Charlee Michael DRAFTING CLERK Work Phone: [facility] Comment on above: Dizziness and giddin ess (Primary Dx); Bipolar disorder, unspecified (CMS/HCC); Tobacco dependence; Iron deficiency anemia, unspecified iron deficiency anemia type; Tachycardia; Bipolar affective disorder, remission status unspecified (CMS/HCC) Start: 06-24-2024 End: 06-24-2024 ambulatory CHARLEE RODRIGUEZ Not Available Start: 06-24-2024 End: 06-24-2024 Bamboo flowsheet Charlee Rodriguez DRAFTING CLERK Work Phone: [facility] Start: 06-24-2024 End: 06-24-2024 Bamboo flowsheet Charlee Michael DRAFTING CLERK Work Phone: [facility] Start: 05-24-2024 End: 05-24-2024 Refill Charlee Michael DRAFTING CLERK Work Phone: [facility] Comment on above: Iron deficiency anem ia, unspecified iron deficiency anemia type (Primary Dx) Start: 05-21-2024 End: 05-21-2024 Clinisync Result Encounter Charlee Michael DRAFTING CLERK Work Phone: [facility] Unsolicited Start: 05-21-2024 End: 05-21-2024 Clinisync Result Encounter Charlee Michael DRAFTING CLERK Work Phone: [facility] Unsolicited Start: 05-14-2024 End: 05-14-2024 Office outpatient visit 25 minutes Charlee Rodriguez DRAFTING CLERK Work Phone: [facility] Comment on above: Dizziness and giddin ess (Primary Dx); Anemia due to other cause, not classified; Tobacco dependence; Overweight (BMI 25.0-29.9) Start: 05-14-2024 End: 05-14-2024 ambulatory CHARLEE MICHAEL Not Available Start: 04-15-2022 End: 04-15-2022 ambulatory AREA DIRECTOR CHARLEE MICHAEL Facility:[facility] Start: 02-01-2022 End: 02-01-2022 ambulatory AREA DIRECTOR CHARLEE MICHAEL Facility:[facility] Start: 01-03-2022 End: 01-03-2022 ambulatory AREA DIRECTOR CHARLEE MICHAEL Facility:[facility] Procedures Date Procedure Procedure Detail Performing Clinician Start: 05-21-2024 TBH UA (CLEAN/CATCH) MICROSCOPIC IF INDICATE Charlee Rodriguez DRAFTING CLERK Work Phone: Plan of Treatment Date Care Activity Detail Author Start: 08-24-2024 End: 05-24-2025 CBC W Auto Differential panel - Blood CBC and differential Lab Routine Iron deficiency anemia, unspecified iron deficiency anemia type Expected: 08/24/2024 (Approximate), Expires: 05/24/2025 [facility] Comment on above: Expected: 08/24/2024 (Approximate), Expires: 05/24/2025 Start: 08-24-2024 End: 05-24-2025 Iron + transferrin + TIBC Iron + transferrin + TIBC Lab Routine Iron deficiency anemia, unspecified iron deficiency anemia type Expected: 08/24/2024 (Approximate), Expires: 05/24/2025 [facility] Work Phone: Comment on above: Expected: 08/24/2024 (Approximate), Expires: 05/24/2025 Start: 07-05-2024 Influenza vaccination Influenza Vacc ine (#1) [facility] Comment on above: Postponed from 04/07 (Other Patient Reasons) Start: 06-24-2024 End: 06-24-2024 Patient encounter procedure [facility] Comment on above: Tobacco dependence ( Primary Dx); Bipolar disorder, unspecified ([facility]/HCC); Iron deficiency anemia, unspecified iron deficiency anemia type Start: 05-14-2024 End: 05-14-2025 CBC W Auto Differential panel - Blood CBC and differential Lab Routine Anemia due to other cause, not classified Expected: 05/14/2024 (Approximate), Expires: 05/14/2025 [facility] Work Phone: Comment on above: Expected: 05/14/2024 (Approximate), Expires: 05/14/2025 Start: 05-14-2024 End: 05-14-2025 Cobalamin (Vitamin B12) [Mass/volume] in Serum or Plasma Vitamin B12 Lab Routine Anemia due to other cause, not classified Expected: 05/14/2024 (Approximate), Expires: 05/14/2025 [facility] Comment on above: Expected: 05/14/2024 (Approximate), Expires: 05/14/2025 Start: 05-14-2024 End: 05-14-2025 Comprehensive metabolic 2000 panel - Serum or Plasma Comprehensive metabolic panel Lab Routine Dizziness and giddiness Expected: 05/14/2024 (Approximate), Expires: 05/14/2025 [facility] Comment on above: Expected: 05/14/2024 (Approximate), Expires: 05/14/2025 Start: 05-14-2024 End: 05-14-2025 Holter monitor study Holter monitor Imaging Routine Dizziness and giddiness Expected: 05/14/2024 (Approximate), Expires: 05/14/2025 [facility] Comment on above: Expected: 05/14/2024 (Approximate), Expires: 05/14/2025 Start: 05-14-2024 End: 05-14-2025 Iron + transferrin + TIBC Iron + transferrin + TIBC Lab Routine Anemia due to other cause, not classified Dizziness and giddiness Expected: 05/14/2024 (Approximate), Expires: 05/14/2025 [facility] Comment on above: Expected: 05/14/2024 (Approximate), Expires: 05/14/2025 Start: 05-14-2024 End: 05-14-2025 Lipid 1996 panel - Serum or Plasma Lipid panel Lab Routine Overweight (BMI 25.0-29.9) Expected: 05/14/2024 (Approximate), Expires: 05/14/2025 [facility] Comment on above: Expected: 05/14/2024 (Approximate), Expires: 05/14/2025 Start: 05-14-2024 End: 05-14-2025 Thyrotropin [Units/volume] in Serum or Plasma TSH Lab Routine Dizziness and giddiness Expected: 05/14/2024 (Approximate), Expires: 05/14/2025 [facility] Comment on above: Expected: 05/14/2024 (Approximate), Expires: 05/14/2025 Start: 05-14-2024 End: 05-14-2025 Thyroxine (T4) free [Mass/volume] in Serum or Plasma T4, free Lab Routine Dizziness and giddiness Expected: 05/14/2024 (Approximate), Expires: 05/14/2025 [facility] Comment on above: Expected: 05/14/2024 (Approximate), Expires: 05/14/2025 Start: 05-14-2024 End: 05-14-2025 Urinalysis complete panel - Urine Urinalysis with reflex microscopic (clean catch) Lab Routine Tobacco dependence Dizziness and giddiness Expected: 05/14/2024 (Approximate), Expires: 05/14/2025 [facility] Comment on above: Expected: 05/14/2024 (Approximate), Expires: 05/14/2025 Start: 2023 Screening for malign ant neoplasm of cervix [facility] Start: 2014 Screening for malign ant neoplasm of cervix Pap Smear [facility] Payers Date Payer Category Payer Medicaid [employer] [place] [employer] [id number] 2020-Present [address] [place] [address] [id number] 2020 Medicaid (Managed Care) [employer] [id number] 1993 Unknown [id number] 1993 Unknown [id number] 1993 Unknown [id number] 1993 Unknown [id number] 1993 Unknown [id number] 1959 Unknown [id number] Social History Date Type Detail Facility Start: 05-14-2024 Tobacco smoking stat RUSTIS Smokes tobacco daily [facility] Start: 05-14-2024 Tobacco use and exposure User of smo keless tobacco [facility] Start: 05-14-2024 End: 06-24-2024 Alcoholic beverage intake Lifetime non-drinker (finding) [facility] Start: 05-14-2024 End: 06-24-2024 History of Social function [facility] Start: 05-14-2024 End: 06-24-2024 Tobacco use panel [facility] Start: 05-14-2024 Tobacco Comment vape [facility] Start: 05-14-2024 Alcohol Comment caffine: 1 16o z soda daily and 1 cup of coffee daily [facility] Start: 1995 Sex assigned at Not on file [facility] History of Present illness Narrative 06-24-2024 Charlee Rodriguez NP - 06/24/2024 3:38 PM Davida Rodriguez NP - 06/24/2024 3:36 PM Davida Rodriguez NP - 06/24/2024 3:36 PM RAPHAEL NIXON - 06/24/2024 3:00 PM EST Note Date & Type Note Facility 06-24-2024 History of Presen t illness Narrative Associated Problem(s): Bipolar disorder ([facility]) Unsure if any link with dizziness Associated Problem(s): Tachycardia Refer to cardiology Associated Problem(s): Dizziness and giddiness Reviewed labs Reviewed holter Refer to Cardiology, strong family hx of POTS Pt had a dizzy spell yesterday Images from the original note were not included. Pamela Davison is a 29 y.o. female presents with chief complaint of Dizziness HPI: Here for recheck of dizziness: since last visit has had labs and holter monitor completed Not really better, not really worse, but if she sleeps too much she feels worse Intermittent abd pain: mid and to the right, no NVD, no worse with food or not, or menses Mostly just tender to touch Dizziness This is a recurrent problem. The current episode started more than 1 month ago. The problem occurs intermittently. The problem has been unchanged. Associated symptoms include abdominal pain. Pertinent negatives include no arthralgias, chest pain, chills, congestion, coughing, fever, headaches, joint swelling, myalgias, nausea, rash, sore throat or vomiting. Nothing aggravates the symptoms. She has tried nothing for the symptoms. SUBJECTIVE: MEDICATIONS: Current Outpatient Medications Medication Instructions ferrous sulfate 325 mg, Oral, Daily with breakfast ALLERGIES: No Known Allergies REVIEW OF SYMPTOMS: Review of Systems Constitutional: Negative for appetite change, chills and fever. HENT: Negative for congestion, ear pain and sore throat. Eyes: Negative for pain, discharge, redness and visual disturbance. Respiratory: Negative for cough, shortness of breath and wheezing. Cardiovascular: Negative for chest pain, palpitations and leg swelling. Gastrointestinal: Positive for abdominal pain. Negative for blood in stool, constipation, diarrhea, nausea and vomiting. Genitourinary: Negative for difficulty urinating, dysuria and frequency. Musculoskeletal: Negative for arthralgias, back pain, joint swelling and myalgias. Skin: Negative for rash and wound. Neurological: Positive for dizziness. Negative for tremors, seizures, syncope and headaches. Psychiatric/Behavioral: Negative for behavioral problems, self-injury and suicidal ideas. The patient is nervous/anxious. Hematological: Does not bruise/bleed easily. Endocrine: Negative for polydipsia, polyphagia and polyuria. Allergic/Immunologic: Negative for environmental allergies and food allergies. PAST MEDICAL HISTORY Past Medical History: Diagnosis Date Anemia Past Surgical History: Procedure Laterality Date SECTION, CLASSIC family history includes Diabetes in her mother; Diabetes type II in her father; Hypertension in her father and mother; Other in an other family member; Stroke in her paternal grandfather. OBJECTIVE: Visit Vitals BP 108/72 (BP Location: Left arm, Patient Position: Sitting, BP Cuff Size: Adult long) Pulse 75 Temp 97.8 F (Temporal) Resp 18 Ht 5' 4 Wt 165 lb SpO2 100% BMI 28.32 kg/m Smoking Status Every Day BSA 1.84 m Physical Exam Vitals and nursing note reviewed. Constitutional: General: She is not in acute distress. Appearance: Normal appearance. HENT: Head: Normocephalic and atraumatic. Right Ear: External ear normal. Left Ear: External ear normal. Nose: Nose normal. Mouth/Throat: Mouth: Mucous membranes are moist. Eyes: Extraocular Movements: Extraocular movements intact. Conjunctiva/sclera: Conjunctivae normal. Cardiovascular: Rate and Rhythm: Normal rate and regular rhythm. Pulses: Normal pulses. Heart sounds: Normal heart sounds. Pulmonary: Effort: Pulmonary effort is normal. Breath sounds: Normal breath sounds. No wheezing or rales. Abdominal: General: Bowel sounds are normal. There is no distension. Palpations: Abdomen is soft. There is no mass. Tenderness: There is no abdominal tenderness (mid/right, no rebound/guarding). Musculoskeletal: General: Normal range of motion. Cervical back: Normal range of motion and neck supple. Right lower leg: No edema. Left lower leg: No edema. Skin: General: Skin is warm and dry. Capillary Refill: Capillary refill takes 2 to 3 seconds. Findings: No rash. Neurological: General: No focal deficit present. Mental Status: She is alert and oriented to person, place, and time. Psychiatric: Mood and Affect: Mood normal. Behavior: Behavior normal. Thought Content: Thought content normal. Judgment: Judgment normal. ASSESSMENT AND PLAN: Follow up in about 6 weeks (around 08/05/2024) for Recheck. Problem List Items Addressed This Visit Bipolar disorder ([facility]) Unsure if any link with dizziness Tobacco dependence The patient has been advised of the risks of continued smoking: stroke, SD, all forms of cancer, lung disease, and . Options for quitting smoking include: cold turkey, hypnosis, acupuncture, nicotine replacement meds (gum, lozenges, and patches), Buproprion, and Varenicline. At this time pt is encouraged to evaluate their goals for wanting to quit smoking, and reach out to provider when ready to start this process Dizziness and giddiness - Primary Reviewed labs Reviewed holter Refer to Cardiology, strong family hx of POTS Relevant Orders Ambulatory referral to Cardiology SHEYLA (iron deficiency anemia) Started on ferrous sulfate Tachycardia Refer to cardiology Relevant Orders Ambulatory referral to Cardiology Other Visit Diagnoses Bipolar disorder, unspecified ([facility]) Associated Problem(s): SHEYLA (iron deficiency anemia) Started on ferrous sulfate Associated Problem(s): Tobacco dependence The patient has been advised of the risks of continued smoking: stroke, SD, all forms of cancer, lung disease, and . Options for quitting smoking include: cold turkey, hypnosis, acupuncture, nicotine replacement meds (gum, lozenges, and patches), Buproprion, and Varenicline. At this time pt is encouraged to evaluate their goals for wanting to quit smoking, and reach out to provider when ready to start this process documented in this encounter [facility] Instructions 06-24-2024 Patient Instructions Note Date & Type Note Facility 06-24-2024 Instructions Charlee Rodriguez NP - 06/24/2024 3:00 PM EST Refer to [facility] Cardiology [place] office, they should call you for an appt documented in this encounter [facility] History of Present illness Narrative 05-14-2024 Charlee Rodriguez NP - 05/14/2024 4:35 PM EDSherry Rodriguez NP - 05/14/2024 4:34 PM Thai Rodriguez NP - 05/14/2024 4:34 PM EDTHUMBRAPHAEL MALDONADO - 05/14/2024 3:20 PM EDT Note Date & Type Note Facility 05-14-2024 History of Presen t illness Narrative Associated Problem(s): Dizziness and giddiness Will check labs, order holter Differentials: rhythm disturbance, lab abnormals, POTS, anxiety with panic attack Fu in 6 weeks Associated Problem(s): Tobacco dependence Recommend quitting Associated Problem(s): Other specified anemias Check labs Pt states she has had dizzy & fainting spells when she was a teen in high school. Pt states that they have been increasing since she has gotten older and notices them more during her menses. Pt states that she had gone to the [facility] 1-2 years ago for blood clots being larger than a quarter and lower back/kidney pain. Pt states that she was ruled out normal from that appt. Pt states she can tell when she is going to have an episode: she ready herself- pt will become sweaty, seeing stars, nausea, blurry vision, sensitive to light, and ringing in the ears (pt will lay down on couch or ground) pt also mentions she has had high BP in the past and her mother has high BP. Pt vapes nicotine and manuel. Pt mentions that she has several family members who have been diagnosis with [facility] PT will have heart palpitations randomly and numbness of the arms. Pt states when she eats salt it helps her pull through her episode. Episodes do happen every month around the during her menses Images from the original note were not included. Pamela Davison is a 29 y.o. female presents with chief complaint of No chief complaint on file. 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 Is having episodes where she describes feeling hands feel clammy, lightheaded feeling, nause a, like she is gonna pass out. She will lower herself to the ground. Several family members have POTS, she wonders if this is what she has. Although she also has hx of anemia, does not take iron supplements, she can wake up from sleep drenched in sweat, heavy periods, fluctuations in bowels between constipation and diarreha and w abd cramps. She has had anxiety and biopolar in the past, no meds. Denies SI/HI/hallucinations , no acute depression but can agitate easily as well. SUBJECTIVE: MEDICATIONS: No current outpatient medications ALLERGIES: No Known Allergies REVIEW OF SYMPTOMS: Review of Systems Constitutional: Negative for appetite change, chills and fever. HENT: Negative for congestion, ear pain and sore throat. Eyes: Negative for pain, discharge, redness and visual disturbance. Respiratory: Negative for cough, shortness of breath and wheezing. Cardiovascular: Negative for chest pain, palpitations and leg swelling. Gastrointestinal: Positive for abdominal pain, constipation and diarrhea. Negative for blood in stool, nausea and vomiting. Genitourinary: Positive for menstrual problem. Negative for difficulty urinating, dysuria and frequency. Musculoskeletal: Negative for arthralgias, back pain, joint swelling and myalgias. Skin: Negative for rash and wound. Neurological: Positive for dizziness. Negative for tremors, seizures, syncope and headaches. Psychiatric/Behavioral: Negative for behavioral problems, self-injury and suicidal ideas. The patient is nervous/anxious. Irritates easily Hematological: Does not bruise/bleed easily. Endocrine: Negative for polydipsia, polyphagia and polyuria. Allergic/Immunologic: Negative for environmental allergies and food allergies. PAST MEDICAL HISTORY Past Medical History: Diagnosis Date Anemia Past Surgical History: Procedure Laterality Date SECTION, CLASSIC family history includes Diabetes in her mother; Diabetes type II in her father; Hypertension in her father and mother; Other in an other family member; Stroke in her paternal grandfather. OBJECTIVE: Visit Vitals BP 124/76 (BP Location: Left arm, Patient Position: Sitting, BP Cuff Size: Adult long) Pulse 104 Temp 98.8 F (Temporal) Resp 18 Ht 5' 4 Wt 155 lb 6.4 oz SpO2 99% BMI 26.67 kg/m Smoking Status Every Day BSA 1.78 m Physical Exam Vitals and nursing note reviewed. Constitutional: General: She is not in acute distress. Appearance: Normal appearance. HENT: Head: Normocephalic and atraumatic. Right Ear: Tympanic membrane, ear canal and external ear normal. Left Ear: Tympanic membrane, ear canal and external ear normal. Nose: Nose normal. No congestion or rhinorrhea. Mouth/Throat: Mouth: Mucous membranes are moist. Pharynx: No oropharyngeal exudate or posterior oropharyngeal erythema. Eyes: Extraocular Movements: Extraocular movements intact. Conjunctiva/sclera: Conjunctivae normal. Pupils: Pupils are equal, round, and reactive to light. Neck: Vascular: No carotid bruit. Cardiovascular: Rate and Rhythm: Normal rate and regular rhythm. Pulses: Normal pulses. Heart sounds: Normal heart sounds. Pulmonary: Effort: Pulmonary effort is normal. Breath sounds: Normal breath sounds. Abdominal: General: Bowel sounds are normal. There is no distension. Palpations: Abdomen is soft. There is no mass. Tenderness: There is no abdominal tenderness. Musculoskeletal: General: Normal range of motion. Cervical back: Normal range of motion and neck supple. Right lower leg: No edema. Left lower leg: No edema. Lymphadenopathy: Cervical: No cervical adenopathy. Skin: General: Skin is warm and dry. Capillary Refill: Capillary refill takes 2 to 3 seconds. Findings: No rash. Neurological: General: No focal deficit present. Mental Status: She is alert and oriented to person, place, and time. Cranial Nerves: No cranial nerve deficit. Sensory: No sensory deficit. Coordination: Coordination normal. Gait: Gait normal. Deep Tendon Reflexes: Reflexes normal. Comments: Neg romberg and ulnar drift Psychiatric: Mood and Affect: Mood normal. Behavior: Behavior normal. Thought Content: Thought content normal. Judgment: Judgment normal. ASSESSMENT AND PLAN: Follow up in about 6 weeks (around 06/25/2024) for Recheck. Problem List Items Addressed This Visit Other specified anemias Check labs Relevant Orders CBC and differential Iron + transferrin + TIBC Vitamin B12 Tobacco dependence Recommend quitting Relevant Orders Urinalysis with reflex microscopic (clean catch) Overweight (BMI 25.0-29.9) Relevant Orders Lipid panel Dizziness and giddiness - Primary Will check labs, order holter Differentials: rhythm disturbance, lab abnormals, POTS, anxiety with panic attack Fu in 6 weeks Relevant Orders Comprehensive metabolic panel Iron + transferrin + TIBC Urinalysis with reflex microscopic (clean catch) TSH T4, free Holter monitor documented in this encounter [facility] Evaluation note Note Date & Type Note Facility Evaluation note Diagnosis Dizziness and giddiness- Primary Anemia due to other cause, not classified Tobacco dependence Tobacco use disorder Overweight (BMI 25.0-29.9) Overweight documented in this encounter [facility] Evaluation note Note Date & Type Note Facility Evaluation note Diagnosis Dizziness and giddiness- Primary Anemia due to other cause, not classified Tobacco dependence Tobacco use disorder Overweight (BMI 25.0-29.9) Overweight Iron deficiency anemia, unspecified iron deficiency anemia type- Primary documented in this encounter [facility] Evaluation note Note Date & Type Note Facility Evaluation note Diagnosis Dizziness and giddiness- Primary Anemia due to other cause, not classified Tobacco dependence Tobacco use disorder Overweight (BMI 25.0-29.9) Overweight Dizziness and giddiness- Primary Bipolar disorder, unspecified ([facility]) Bipolar disorder, unspecified Tobacco dependence Tobacco use disorder Iron deficiency anemia, unspecified iron deficiency anemia type Tachycardia Unspecified tachycardia Bipolar affective disorder, remission status unspecified ([facility]) documented in this encounter [facility] Healthcare Summary Purpose Family History No Family History Records FoundNo Family History Records FoundNo Family History Records Found Advance Directives No Advanced Directives Records FoundNo Advanced Directives Records FoundNo Advanced Directives Records Found Reason for Referral Specialty Diagnoses / Procedures Referred By Contac t Referred To Contact Radiology Diagnoses Dizziness and giddiness Procedures Holter monitor Charlee Rodriguez NP [address] [place] [address] Referral ID Status Reason Start Date Expiration Date V isits Requested Visits Authorized [id number] Pending Review 05/14/2024 11/10/2024 1 1 Additional Source Comments INFORMATION SOURCE (unrecogn ized section and content) DATE CREATED AUTHOR 05/19/2019 [facility] DATE CREATED AUTHOR AUTHOR'S ORGANIZ ATION 04/18/2022 [facility] DATE CREATED AUTHOR AUTHOR'S ORGANIZ ATION 06/26/2024 [facility] EPIC Care Teams (unrecognized sec tion and content) Machine Stamper Relationship Specialty Start Date End Date Zach Medina MD [address] [place] [phone] PCP - General Family Medicine 04/29/24 Charlee Rodriguez NP [address] [place] [phone] Nurse Practitioner Family Medicine 04/29/24 Machine Stamper Relationship Specialty Start Date End Date Zach Medina MD [address] [place] [phone] PCP - General Family Medicine 04/29/24 Charlee Rodriguez NP [address] [place] [phone] Nurse Practitioner Family Medicine 04/29/24 Machine Stamper Relationship Specialty Start Date End Date Zach Medina MD [address] [place] [phone] PCP - General Family Medicine 04/29/24 Charlee Rodriguez NP [address] [place] [phone] Nurse Practitioner Family Medicine 04/29/24 Machine Stamper Relationship Specialty Start Date End Date Zach Medina MD [address] [place] [phone] PCP - General Family Medicine 04/29/24 Charlee Rodriguez NP [address] [place] [phone] Nurse Practitioner Family Medicine 04/29/24 Machine Stamper Relationship Specialty Start Date End Date Zach Medina MD [address] [place] [phone] PCP - General Family Medicine 04/29/24 Charlee Rodriguez NP [address] [place] [address] Nurse Practitioner Family Medicine 04/29/24 Reason for Visit (unrecogniz ed section and content) Reason Comments Dizziness FOR RECORDS PERTAINING TO PATIENTS WHO ARE OR HAVE BEEN ENROLLED IN A CHEMICAL DEPENDENCY/SUBSTANCEABUSE PROGRAM, SOME INFORMATION MAY BE OMITTED. This clinical summary was aggregated from multiple sources. Caution should be exercised in using it in the provision of clinical care. This summary normalizes information from multiple sources, and as a consequence, information in this document may materially change the coding, format and clinical context of patient data. In addition, data may be omitted in some cases. CLINICAL DECISIONS SHOULD BE BASED ON THE PRIMARY CLINICAL RECORDS. [employer] provides no warranty or guarantee of the accuracy or completeness of information in this document.
[2024-08-02 23:06] LABS: Age Gdln ACOG Testing Note (.); HPV Aptima Negative (Negative); IGP, Aptima HPV, rfx 16/18,45 Note (.)
== END 2024-07-24 20:18 | disposition home or self-care (01) ==
LOC: LAB 20:17
PROVIDERS: PCP Nurse Practitioner; Visit Provider Nurse Practitioner
DX: Z01.419 Encounter for gynecological examination (general) (routine) without abnormal findings (principal)
CPT/HCPCS: 87624; 88175

== ENCOUNTER 2024-09-12 14:18 | Outpatient (OUT) | payer OTHER, SELFPAY ==
--- NOTE | 2024-09-12 14:00 | CA_ITS ---
Patient Name: JU BROWN MR#: [id number] : 1995 Exam Date: 09/12/2024 Ordering Doctor: DR. ELIZABETH LIND M.D. ECHOCARDIOGRAM REPORT PROCEDURE: CA ECHO DOPPLER COMPLETE INDICATIONS: Syncope and collapse, dyspnea on exertion, smoker COMPARISON: None. DESCRIPTION: COMPLETE ECHOCARDIOGRAM Real-time transthoracic echocardiography with 2D, M-mode, spectral and color flow Doppler performed. QUALITY: Technical quality was good. LEFT VENTRICLE: Normal chamber size. Normal left ventricular wall thickness. Normal systolic function. LV EF: Normal left ventricular ejection fraction, (60-65%). DIASTOLIC: Normal diastolic function. ATRIAL SEPTUM: Visually appears intact. LEFT ATRIUM: Normal chamber size. RIGHT ATRIUM: Normal chamber size. RIGHT VENTRICLE: Normal chamber size. Normal right ventricular systolic function. TRICUSPID VALVE: Normal mobility and thickness. No stenosis with trivial regurgitation. No evidence of pulmonary hypertension. RVSP 22 mmHg MITRAL VALVE: Normal mobility and thickness. No evidence of mitral valve stenosis. There is no mitral annular calcification. Trivial mitral regurgitation. AORTIC VALVE: Normal trileaflet appearance. No visible sclerosis. Normal leaflet mobility. No evidence of aortic valve stenosis. No aortic regurgitation. AORTIC ROOT: Normal diameter and appearance, measuring 2.9 cm. Ascending aorta is normal in size, measuring 2.9 cm. PULMONIC VALVE: Normal thickness and mobility. No stenosis. No regurgitation. PERICARDIUM: No evidence of pericardial effusion. IVC: Collapses with inspirations. IVC is normal in size. PLEURA: CONCLUSION: 1. Normal ventricular size and systolic function. LVEF is 60-65%. 2. Normal diastolic function. 3. No significant valvular dysfunction. 4. Normal right sided pressures. Adult Echocardiography Procedure Report Left Ventricle LVEDD (3.7 - 5.6 cm): 4.23 cm LVESD (2.2 - 4.0 cm): 2.97 cm LVIVS thickness (0.6 - 1.2 cm): 1.00 cm LVPW thickness (0.5 - 1.0 cm): 1.00 cm e': 0.17 m/s E - e': 4.64 LVOT Max Gradient: 6.14 mm[Hg] LVOT Area (cm2): 1.24 m/s Peak Velocity (LVOT): 1.24 m/s Mean Velocity (LVOT): 0.86 m/s LVOT Diameter 2.31 cm Left Atrium LA Volume Index (2D A2C): 30.00 ml/m2 Left Atrium Systolic Dimension: 3.70 cm Mitral Valve MV E to A Ratio: 1.44 Mitral Valve A-Wave Peak Velocity: 0.56 m/s Mitral Valve E-Wave Peak Velocity: 0.81 m/s Right Ventricle Aorta AO Root Diam: 2.93 cm Ascending Ao Diam: 2.58 cm Aortic Valve AoV Area (Peak William): 3.74 cm2, 3.74 cm2 AoV Area (VTI): 3.29 cm2, 3.29 cm2 Peak Velocity(Antegrade Flow): 1.39 m/s Peak Gradient(Antegrade Flow): 7.68 mm[Hg] Mean Velocity(Antegrade Flow): 0.96 m/s Mean Gradient(Antegrade Flow): 4.18 mm[Hg] Velocity Time Integral: 30.56 cm Tricuspid Valve Peak Velocity (Regurgitant Flow): 2.20 m/s Pulmonic Valve Mean Gradient: 3.13 mm[Hg] Mean Velocity: 0.83 m/s Peak Velocity: 1.13 m/s, 1.06 m/s Peak Gradient: 4.53 mm[Hg], 5.09 mm[Hg] Right Atrium Right Atrium Systolic Pressure: 41.89 ml, 41.89 ml Dictated by: Rian Polo M.D. on 09/12/2024 at 17:59 Approved by: Rian Polo M.D. on 09/12/2024 at 18:01
== END 2024-09-12 14:19 | disposition home or self-care (01) ==
LOC: CARD 14:19
PROVIDERS: PCP Nurse Practitioner; Visit Provider Internal Medicine Cardiovascular Disease
DX: R55 Syncope and collapse (principal); R06.09 Other forms of dyspnea; D50.9 Iron deficiency anemia, unspecified
CPT/HCPCS: 36415; 83540; 83550; 84466; 85025; 93306

== ENCOUNTER 2024-09-12 14:19 | Outpatient (OUT) | payer OTHER, SELFPAY ==
[2024-09-12 14:37] LABS: Basophils Absolute Auto 0.1 10^3/uL (0.0-0.1); Basophils Percent Auto 1.1 % (0.2-2.0); Eosinophils Absolute Auto 0.1 10^3/uL (0.0-0.7); Eosinophils Percent Auto 1.5 % (0.9-7.0); Hematocrit 36.3 % (36.0-48.0); Hemoglobin 11.5 g/dL (12.0-16.0); Immature Granulocytes Abs Auto 0.01 10^3/uL (0.00-0.03); Immature Granulocytes Pct Auto 0.2 % (0.0-0.5); Lymphocytes Absolute Auto 1.4 10^3/uL (1.2-3.8); Lymphocytes Percent Auto 31.1 % (20.5-60.0); Mean Corpuscular HGB Conc 31.7 g/dL (29.9-35.2); Mean Corpuscular Hemoglobin 24.9 pg (26.7-34.0); Mean Corpuscular Volume 78.7 fL (81.0-99.0); Mean Platelet Volume 9.5 fL (9.5-13.5); Monocytes Absolute Auto 0.5 10^3/uL (0.3-0.8); Monocytes Percent Auto 11.1 % (1.7-12.0); Neutrophils Absolute Auto 2.5 10^3/uL (1.4-6.5); Platelet Count 288 10^3/uL (150-450); Red Blood Count 4.61 10^6/uL (4.20-5.40); Red Cell Distribution Width 17.4 % (11.0-15.0); White Blood Count 4.6 10^3/uL (4.0-11.0)
--- OUTSIDE RECORDS SUMMARY | 2024-09-12 14:41 | XMS_ITS | CCD ---
Author Organization [facility] Care Team Providers Care Electronic Scale Assembler And Tester Name Role Phone KEVAN RODRIGUEZ Primary Care Unavailable PAY, DR MAI Admitting Unavailable PAY, DR MAI Attending Unavailable PAY, DR MAI Consulting Unavailable KEVAN RODRIGUEZ CHARLEE Primary Care Unavailable ANTONY, DR CHAMBERS Admitting Unavailable ANTONY, DR CHAMBERS Attending Unavailable ARON TORRES Consulting Unavailable MICHAEL, KEVAN CHARLEE Primary Care Unavailable ARON SINGH Consulting Unavailable DARLIN FUENTES Admitting Unavailable DARLIN FUENTES Attending Unavailable DARLIN FUENTES Consulting Unavailable Zach Medina MD Primary Care Provider [phone] Michael BUILDING EQUIPMENT OPERATOR, Charlee Unavailable CHARLEE RODRIGUEZ Attending Unavailable MICHAEL, CHARLEE Attending Unavailable CHARLEE RODRIGUEZ Attending Unavailable ELIZABETH LIND Attending Unavailable CHARLEE RODRIGUEZ Primary Care Unavailable AP GARCIA Attending Unavailable LESTER CLEMONS Admitting Unavailable MIRIAM RODRIGUEZA Afshan Primary Care Unavailable NADINE CARUSO Attending UnavailCharlee Fenton Primary Care Provider KATIE RODGERS Attending Unavailable MIRIAM RODRIGUEZA Afshan Referring Unavailable SCOTTYHMENDOZA CHARLEE J Primary Care Unavailable Medications Current Medications Medication Drug Class(es) Dates Sig (Normalized) Sig (Original) acetaminophen 500 mg oral tablet (1 source) Start: 08-23-2024 take 2 tablets by mouth every six hours acetaminophen (TYLENOL EXTRA STRENGTH) 500 mg tablet Take 2 tablets (1,000 mg total) by mouth every 6 (six) hours. 30 tablet 08/23/2024 Active docusate sodium 100 mg oral capsule (1 source) Start: 08-23-2024 take 1 capsule by mouth in the morning, then take 1 capsule by mouth at bedtime docusate sodium (COLACE) 100 mg capsule Take 1 capsule (100 mg total) by mouth in the morning and 1 capsule (100 mg total) before bedtime. 10 capsule 08/23/2024 Active ferrous sulfate 325 mg oral tablet (5 sources) Start: 05-30-2024 End: 06-29-2024 take 1 [...] stool. 30 tablet 2 05/24/2024 06/23/2024 Active fluconazole 150 mg oral tablet (2 sources) Azole Antifungal Start: 07-24-2024 fluconazole (Diflucan) 150 MG tablet Indications: Vaginal discharge One time dose, may repeat in 3 days 2 tablet 07/24/2024 Active ibuprofen 600 mg oral tablet (1 source) Nonsteroidal Anti-inflammatory Drug Start: 08-23-2024 take 1 tablet by mouth every six hours ibuprofen (MOTRIN) 600 mg tablet Take 1 tablet (600 mg total) by mouth every 6 (six) hours. 30 tablet 08/23/2024 Active multivitamin capsule (1 source) take 1 capsule by mouth in the morning multivitamin capsule Take 1 capsule by mouth in the morning. Active traMADol hydrochloride 50 mg oral tablet (1 source) Opioid Agonist Start: 09-06-2024 End: 09-09-2024 take 1 tablet by mouth every eight hours as needed for pain traMADoL (ULTRAM) 50 mg tablet Indications: Abdominal pain, unspecified abdominal location Take 1 tablet (50 mg total) by mouth every 8 (eight) hours as needed for pain for up to 3 days. 9 tablet 09/06/2024 09/09/2024 Active Problems Active Problems Problem Classification Problem Date Documented Date Episodic/Chronic Abdominal pain (2 sources) Unspecified abdominal pain; Translations: [Abdominal pain] Onset: 08-22-2024 Episodic Anxiety disorders (4 sources) Other specified anxiety disorders; Translations: [OTHER SPECIFIED ANXIETY DISORDERS] Onset: 01-03-2022 Chronic Appendicitis and other appendiceal conditions (2 sources) Unspecified acute appendicitis; Translations: [Acute appendicitis] Onset: 08-23-2024 08-23-2024 Episodic Asthma (12 sources) Asthma; Translations: [Unspecified asthma, uncomplicated] Onset: 05-14-2024 05-14-2024 Chronic Cardiac dysrhythmias (11 sources) Tachycardia; Translations: [Tachycardia, unspecified] Onset: 06-24-2024 06-24-2024 Episodic Conditions associated with dizziness or vertigo (16 sources) Dizziness and giddiness; Translations: [Dizziness and giddiness] Onset: 05-14-2024 05-14-2024 Episodic Deficiency and other anemia (12 sources) Anemia; Translations: [Other specified anemias] Onset: 05-14-2024 05-14-2024 Episodic Deficiency and other anemia (11 sources) Iron deficiency anemia; Translations: [Iron deficiency anemia, unspecified] Onset: 05-24-2024 05-24-2024 Episodic Deficiency and other anemia (2 sources) Other iron deficiency anemias; Translations: [Other iron deficiency anemias] Onset: 08-05-2024 Episodic Fever of unknown origin (1 source) Fever, unspecified; Translations: [FEVER UNSPECIFIED] Onset: 2022 Episodic Fluid and electrolyte disorders (1 source) Dehydration; Translations: [DEHYDRATION] Onset: 2022 Episodic Inflammatory diseases of female pelvic organs (1 source) Female pelvic inflammatory disease, unspecified; Translations: [Female pelvic inflammatory disease, unspecified] Onset: 08-22-2024 Episodic Menstrual disorders (3 sources) Dysmenorrhea; Translations: [Dysmenorrhea, unspecified] Onset: 07-24-2024 07-24-2024 Chronic Mood disorders (14 sources) Bipolar disorder; Translations: [Bipolar disorder, unspecified] Onset: 05-14-2024 05-14-2024 Chronic Nausea and vomiting (3 sources) Nausea with vomiting, unspecified; Translations: [NAUSEA WITH VOMITING UNSPECIFIED] Onset: 02-01-2022 Episodic Other aftercare (1 source) Other fci (current) drug therapy; Translations: [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 DRUG THERAPY] Onset: 2022 Episodic Other ear and sense organ disorders (10 sources) Hearing difficulty; Translations: [Unspecified hearing loss, unspecified ear] Onset: 05-14-2024 05-14-2024 Chronic Other female genital disorders (3 sources) Vaginal discharge; Translations: [Other specified noninflammatory disorders of vagina] Onset: 07-24-2024 07-24-2024 Episodic Other lower respiratory disease (2 sources) Other forms of dyspnea; Translations: [Other forms of dyspnea] Onset: 08-05-2024 Episodic Other nutritional; endocrine; and metabolic disorders (1 source) Body mass index 30+ - obesity; Translations: [Body mass index (BMI) 37.0-37.9, adult] Onset: 05-26-2021 05-26-2021 Chronic Other nutritional; endocrine; and metabolic disorders (13 sources) Body mass index 25-29 - overweight; Translations: [Overweight] Onset: 05-14-2024 05-14-2024 Episodic Other upper respiratory infections (1 source) Acute upper respiratory infection, unspecified; Translations: [ACUTE UP RESPIRATORY INFECTION UNS] Onset: 04-18-2022 Episodic Personality disorders (1 source) Borderline personality disorder; Translations: [BORDERLINE PERSONALITY DISORDER] Onset: 01-04-2022 Chronic Residual codes; unclassified (1 source) Acquired absence of other specified parts of digestive tract; Translations: [Other postprocedural status] 09-09-2024 Episodic Substance-related disorders (15 sources) Tobacco dependence syndrome; Translations: [Nicotine dependence, unspecified, uncomplicated] Onset: 05-14-2024 05-14-2024 Chronic Syncope (2 sources) Syncope and collapse; Translations: [Syncope and collapse] Onset: 08-05-2024 Episodic Unclassified (2 sources) COUGH, UNSPECIFIED; Translations: [COUGH, UNSPECIFIED] Onset: 04-18-2022 Unclassified (1 source) CONTACT W/AND (SUSP) EXPOS COVID-19; Translations: [CONTACT W/AND (SUSP) EXPOS COVID-19] Onset: 04-18-2022 Unclassified (1 source) Post-op Problem Onset: 09-06-2024 Unclassified (1 source) SHARP STOMACH PAINS Onset: 08-22-2024 Viral infection (1 source) COVID-19; Translations: [COVID-19] Onset: 2022 Past or Other Problems Problem Classification Problem Date Documented Da te Episodic/Chronic Screening and history of mental health and substance abuse codes (1 source) Personal history of nicotine dependence; Translations: [PERSONAL HISTORY OF NICOTINE DEPEND] Onset: 01-04-2022 Episodic Unclassified (1 source) COUGH, UNSPECIFIED; Translations: [COUGH, UNSPECIFIED] Onset: 04-15-2022 Unclassified (1 source) Onset: 05-26-2021 05-26-2021 Results Test Name Value Interpretation Reference Range Facility C REACTIVE PROTEINon 025 CRP [Mass/Vol] mg/L Normal 0.000-0.744 [facility] Comment on above: Performed By: #### C JUAN FIGUEREDO, 3040-3 #### [facility] ([id number]) [address] [place] [address] 82316 CBC AND AUTO DIFFon 09-06-19 25 ABSOLUTE BASOPHIL 0.1 X10E9/L Normal 0.0-0.2 [facility] Comment on above: Performed By: #### Agapito FIGUEREDO [facility], #### [facility] ([id number]) [address] [place] [address] 79173 ABSOLUTE NEUTROPHIL 3.9 X10E9/L Normal 1.5-6.6 [facility] Comment on above: Performed By: #### Agapito FIGUEREDO CMP, #### [facility] ([id number]) [address] [place] [address] 14912 Basophils/100 WBC (Bld) 1.1 % Normal [facility] Comment on above: Performed By: #### Agapito FIGUEREDO CMP, #### [facility] ([id number]) [address] [place] [address] 67856 Eosinophils (Bld) [#/Vol] 0.1 10*3/uL Normal 0.0-0.4 [facility] Comment on above: Performed By: #### Agapito FIGUEREDO [facility], #### [facility] ([id number]) [address] [place] [address] 26268 Eosinophils/100 WBC (Bld) 1.0 % Normal [facility] Comment on above: Performed By: #### Agapito FIGUEREDO [facility], #### [facility] ([id number]) [address] [place] [address] 99175 Erythrocyte distribution width (RBC) [Ratio] 19.3 % High 11.5-15.0 [facility] Comment on above: Performed By: #### Agapito FIGUEREDO [facility], #### [facility] ([id number]) [address] [place] [address] 18871 Hematocrit (Bld) [Volume fraction] 36.5 % Normal 35-47 [facility] Comment on above: Performed By: #### Agapito FIGUEREDO [facility], #### [facility] ([id number]) [address] [place] [address] 63550 Hemoglobin (Bld) [Mass/Vol] 11.9 g/dL Normal 11.7-15.5 [facility] Comment on above: Performed By: #### Agapito FIGUEREDO [facility], #### [facility] ([id number]) [address] [place] [address] 25855 Lymphocytes (Bld) [#/Vol] 1.4 10*3/uL Normal 1.0-3.5 [facility] Comment on above: Performed By: #### Agapito FIGUEREDO [facility], #### [facility] ([id number]) [address] [place] [address] 72836 Lymphocytes/100 WBC (Bld) 22.7 % Normal [facility] Comment on above: Performed By: #### Agapito FIGUEREDO [facility], 1989-12, #### [facility] ([id number]) [address] [place] [address] 77083 MCH (RBC) [Entitic mass] 24.8 pg Low 27-34 [facility] Comment on above: Performed By: #### Agapito FIGUEREDO [facility], 1989-12, #### [facility] ([id number]) [address] [place] [address] 72495 MCHC (RBC) [Mass/Vol] 32.6 g/dL Normal 32-36 [facility] Comment on above: Performed By: #### Agapito FIGUEREDO [facility], #### [facility] ([id number]) [address] [place] [address] 61058 MCV (RBC) [Entitic vol] 76 fL Low 80-100 [facility] Comment on above: Performed By: #### Agapito FIGUEREDO [facility], #### [facility] ([id number]) [address] [place] [address] 40219 Monocytes (Bld) [#/Vol] 0.7 10*3/uL Normal 0-0.9 [facility] Comment on above: Performed By: #### Agapito FIGUEREDO [facility], #### [facility] ([id number]) [address] [place] [address] 66053 Monocytes/100 WBC (Bld) 12.0 % Normal [facility] Comment on above: Performed By: #### Agapito FIGUEREDO [facility], #### [facility] ([id number]) [address] [place] [address] 02284 Neutrophils/100 WBC (Bld) 63.2 % Normal [facility] Comment on above: Performed By: #### Agapito FIGUEREDO CMP, #### [facility] ([id number]) [address] [place] [address] 38490 Platelet mean volume (Bld) [Entitic vol] 7.9 fL Normal 7-12 [facility] Comment on above: Performed By: #### Agapito FIGUEREDO CMP, #### [facility] ([id number]) [address] [place] [address] 13249 Platelets (Bld) [#/Vol] 341 10*3/uL Normal 150-450 [facility] Comment on above: Performed By: #### Agapito FIGUEREDO CMP, #### [facility] ([id number]) [address] [place] [address] 36048 RBC COUNT 4.80 X10E12/L Normal 3.80-5.20 [facility] Comment on above: Performed By: #### Agapito FIGUEREDO CMP, #### [facility] ([id number]) [address] [place] [address] 18723 WBC (Bld) [#/Vol] 6.2 10*3/uL Normal 4.0-11.0 [facility] Comment on above: Performed By: #### Agapito FIGUEREDO CMP, #### [facility] ([id number]) [address] [place] [address] 44181 COMPREHENSIVE METABOLIC PANE Teddy 09-06-2024 Albumin [Mass/Vol] 4.5 g/dL Normal 3.2-5.3 [facility] Comment on above: Performed By: #### Agapito FIGUEREDO CMP, #### [facility] ([id number]) [address] [place] [address] 78283 ALP [Catalytic activity/Vol] 44 U/L Normal 39-130 [facility] Comment on above: Performed By: #### C JUAN FIGUEREDO, 1989-12, #### [facility] ([id number]) [address] [place] [address] 88356 ALT [Catalytic activity/Vol] 15 U/L Normal 0-31 [facility] Comment on above: Performed By: #### C BEA [facility], #### [facility] ([id number]) [address] [place] [address] 89434 Anion gap [Moles/Vol] 9 mmol/L Normal 5-15 [facility] Comment on above: Performed By: #### C BEA [facility], #### [facility] ([id number]) [address] [place] [address] 06419 AST [Catalytic activity/Vol] 20 U/L Normal 0-41 [facility] Comment on above: Performed By: #### C [facility]A [facility], #### [facility] ([id number]) [address] [place] [address] 70820 Bilirubin [Mass/Vol] 0.9 mg/dL Normal 0.3-1.2 [facility] Comment on above: Performed By: #### C BCA, CMP, #### [facility] ([id number]) [address] [place] [address] 29962 Calcium [Mass/Vol] 9.3 mg/dL Normal 8.5-10.5 [facility] Comment on above: Performed By: #### C BEA CMP, #### [facility] ([id number]) [address] [place] [address] 77734 Chloride [Moles/Vol] 103 mmol/L Normal 98-109 [facility] Comment on above: Performed By: #### C BEA [facility], #### [facility] ([id number]) [address] [place] [address] CO2 [Moles/Vol] 24 mmol/L Normal 22-32 [facility] Comment on above: Performed By: #### C BEA [facility], #### [facility] ([id number]) [address] [place] [address] 45013 Creatinine [Mass/Vol] 0.75 mg/dL Normal 0.40-1.00 [facility] Comment on above: Result Comment: METH OD TRACEABLE TO IDMS STANDARD Performed By: #### C [facility]A [facility], #### [facility] ([id number]) [address] [place] [address] 80217 eGFR (CKD-EPI) NON-RACE DEPENDENT >90 Normal >59 [facility] Comment on above: Result Comment: Reported eGFR is based on the CKD-EPI 2020 equation that does not use a race coefficient. Performed By: #### C JUAN FIGUEREDO, #### [facility] ([id number]) [address] [place] [address] 28716 Glucose [Mass/Vol] 92 mg/dL Normal 65-99 [facility] Comment on above: Performed By: #### C [facility]A [facility], #### [facility] ([id number]) [address] [place] [address] 62146 Potassium [Moles/Vol] 3.5 mmol/L Normal 3.5-5.0 [facility] Comment on above: Performed By: #### C BEA [facility], #### [facility] ([id number]) [address] [place] [address] Protein [Mass/Vol] 8.1 g/dL High 6.0-8.0 [facility] Comment on above: Performed By: #### C BEA [facility], 1989-12, #### [facility] ([id number]) [address] [place] [address] Sodium [Moles/Vol] 136 mmol/L Normal 134-146 [facility] Comment on above: Performed By: #### C BEA [facility], 1989-12, #### [facility] ([id number]) [address] [place] [address] 68616 Urea nitrogen [Mass/Vol] 9 mg/dL Normal 5-23 [facility] Comment on above: Performed By: #### C [facility]A [facility], #### [facility] ([id number]) [address] [place] [address] ABDOMEN AND PELVIS W CONT on 09-06-2024 CT ABDOMEN AND PELVIS W CONT CT ABDOMEN AND PELVIS W CONT History: . Abdominal pain, post-op Exam/Technique: Contiguous axial images are obtained of the abdomen and pelvis with 100 cc omnipaque 300 intravenous contrast. Coronal and sagittal reconstructions were performed and reviewed. Automatic dose exposure reduction technique utilized. Comparison: 08/23/2024. Findings: LUNGS AND CARDIOMEDIASTINAL STRUCTURES: no abnormality. LIVER: is normal. SPLEEN: is normal. GALLBLADDER: Distended. BILIARY TREE:Normal PANCREAS: normal. ADRENAL GLANDS are normal. RIGHT KIDNEY: is normal.. No signicant complex cyst formation LEFT KIDNEY: is normal.. No signicant complex cyst formation. ABDOMINAL AND PELVIC VASCULATURE: atheroschlerotic calcification which extends into the iliac system without aneurysm formation. PORTAL VEIN: Patent IVC is normal. There is no paraaortic or paracaval adenopathy. FREE AIR: Absent SIGNIFICANT FREE FLUID:absent MESENTERY: Normal BODY WALL: Periumbilical induration. No collection SMALL BOWEL AND TERMINAL ILEUM: normal. COLON: no abnormality. APPENDIX: [Absent. HERNIAL ORIFICES:normal. PELVIC ORGANS: normal. BONES AND SOFT TISSUES: Degenerative change. Schmorl's nodes throughout the thoracolumbar spine.. IMPRESSION: No acute findings.. All CT scans at this facility use dose modulation, iterative reconstruction, and/or weight based dosing when appropriate to reduce radiation dose to as low as reasonably achievable. Finalized by Ramon Alvarez MD on 09/06/2024 9:37 PM Normal [facility] Lactate (P bob) [Moles/Vol]o n 09-06-2024 LACTATE W/REFLEX 1.0 mmol/L Normal 0.4-2.0 [facility] Comment on above: Result Comment: Result did not trigger repeat Lactate, re-order if needed. Performed By: #### C BEA, JUAN, 3040-3 #### [facility] ([id number]) [address] [place] [address] 09839 MAGNESIUMon 09-06-2024 Magnesium [Mass/Vol] 1.7 mg/dL Low 1.8-2.6 [facility] Comment on above: Performed By: #### C BEA, [facility], 3040-3 #### [facility] ([id number]) [address] [place], [place] [id number] SARS/FLU A+B/RSV by NAAT/Mol ecularon 09-06-2024 SARS/FLU A+B/RSV by NAAT/Molecular FLU A PCR Negative (qualifier value) FLU B PCR Negative (qualifier value) RSV by PCR Negative (qualifier value) SARS CoV 2 Not detected (qualifier value) NOTE The Xpert Xpress SARS-CoV-2/Flu/RSV Plus test is a rapid, multiplexed real-time RT-PCR test intended for the simultaneous qualitative detection and differentiation of SARS-CoV-2, influenza A, influenza B and respiratory syncytial virus (RSV) viral RNA from individuals suspected of respiratory viral infection consistent with COVID-19 by their healthcare provider. This test has not been validated in asymptomatic patients. The Xpert Xpress SARS-CoV-2 test is intended for use by qualified and trained operators who are performing tests using either GeneXpert DX or GeneXpert Infinity systems and is limited to laboratories that meet the CLIA requirements to perform high and moderate complexity tests. The Xpert Xpress SARS-CoV-2/Flu/RSV Plus is only for use under the Food and Drug Administration's Emergency Use Authorization. Results are for the simultaneous detection and differentiation of SARS-CoV-2, influenza A, influenza B and RSV nucleic acids in clinical specimens. SARS-CoV-2, influenza A, influenza B and RSV RNA identified by this test are generally detectable in upper respiratory samples during the acute phase of infection. Positive results are indicative of the presence of the identified virus, but do not rule out bacterial infection or co-infection with other pathogens not detected by this test. Clinical correlation with patient history and other diagnostic information is necessary to determine patient infection status. The agent detected may not be the definite cause of disease. Negative results do not preclude SARS-CoV-2, influenza A, influenza B and RSV infection and should not be used as the sole basis for treatment or other patient management decisions. Negative results must be combined with clinical observations, patient history and epidemiological information. An Invalid result may occur with specimen-associated inhibition unable to be resolved with specimen repeat. Fact Sheet for Healthcare Providers: https://www.fda.gov/m edia/647290/download Fact Sheet for Patients: https://www.fda.gov/m edia/256173/download Normal [facility] Comment on above: Performed By: #### C BCA, CMP, 3040-3 #### [facility] ([id number]) [address] [place] [address] 46312 URN MACROSCOPIC NURon 2024 BILIRUBIN CONSTANCE Negative Normal NEG [facility] Comment on above: Performed By: #### N UM #### [facility] ([id number]) [address] [place] [address] 54465 BLOOD/HGB CONSTANCE Large Abnormal NEG [facility] Comment on above: Performed By: #### N UM #### [facility] ([id number]) [address] [place] [address] 93756 GLUCOSE CONSTANCE Negative Normal NEG [facility] Comment on above: Performed By: #### N UM #### [facility] ([id number]) [address] [place] [address] 32604 KETONES CONSTANCE Negative Normal NEG [facility] Comment on above: Performed By: #### N UM #### [facility] ([id number]) [address] [place] [address] 54178 LEUKOCYTE ESTERASE CONSTANCE Negative Normal NEG [facility] Comment on above: Performed By: #### N UM #### [facility] ([id number]) [address] [place] [address] 82610 NITRITE CONSTANCE Negative Normal NEG [facility] Comment on above: Performed By: #### N UM #### [facility] ([id number]) [address] [place] [address] 52674 PH CONSTANCE 5.5 Normal 5.0-8.5 [facility] Comment on above: Performed By: #### N UM #### [facility] ([id number]) [address] [place] [address] 53486 PROTEIN CONSTANCE Negative Normal NEG [facility] Comment on above: Performed By: #### N UM #### [facility] ([id number]) [address] [place] [address] 43913 SPECIFIC GRAVITY CONSTANCE 1.025 Normal 1.003-1.035 [facility] Comment on above: Performed By: #### N UM #### [facility] ([id number]) [address] [place] [address] [place] [address] UROBILINOGEN CONSTANCE 0.2 eu/dL Normal <1.1 [facility] Comment on above: Performed By: #### N UM #### [facility] ([id number]) [address] [place] [address] ABDOMEN AND PELVIS W CONT on 08-23-2024 CT ABDOMEN AND PELVIS W CONT CT ABDOMEN AND PELVIS W CONT History: RLQ abdominal pain Exam/Technique: CT images of abdomen and pelvis were obtained following intravenous contrast injection. CT does automated exposure control was utilized. All CT scans at this facility use dose modulation, iterative reconstruction, and/or weight based dosing when appropriate to reduce radiation dose to as low as reasonably achievable. Comparison: No relevant prior studies available. Findings: Lung bases are clear. There is compromised by motion artifact. Liver, spleen and pancreas are unremarkable. Both adrenal glands are grossly unremarkable. Both kidneys are of adequate and similar size and texture with adequate corticomedullary differentiation. Urinary bladder is decompressed and grossly unremarkable. There is mild prominence of the appendiceal wall and periappendiceal stranding possibly aggravated by motion artifact. However findings are worrisome for underlying appendicitis. This is best identified at coronal image #40 through 46. The remaining bowel loops are grossly unremarkable. There is mild fullness of the endometrial canal likely related to patient's phase in the menstrual cycle. There is 1.9 cm ring-enhancing right pelvic cyst likely ovarian cyst. There is no free peritoneal air. IMPRESSION: Radiographic findings worrisome for acute or early appendicitis given motion artifact. Finalized by Mark Whtie MD on 08/23/2024 12:54 AM Normal [facility] HCG ( test) Ql (U)o n 08-23-2024 Beta HCG ( test) Ql (U) Negative Normal NEG [facility] Comment on above: Performed By: #### 2 106-3 #### [facility] ([id number]) [address] [place] [address] [place] [address] Surgical Pathologyon 025 Surgical Pathology Normal [facility] Comment on above: Result Comment: [facility] [address] [place] [address] Surgical Pathology Consultation Patient Name:PAMELA DAVISON:1995 (Age: 29)Gender:FTaken:08/23/2024Reported:08/28/2024Physician(s):Kassandra Clemons MD ([phone])Copy To: Rec. #:[id number]: #[id number] Final Pathologic Diagnosis Vermiform appendix - Laparoscopic appendectomy: - Acute appendicitis Report Electronically Signed Out crane/08/28/2024Kevin Felton MD Interpretation [place] [address], License number: [id number]. Clinical History Acute appendicitis. Gross Description Received in formalin labeled PINE, appendix is a vermiform appendix that measures 6.6 x 0.6 x 0.5 cm. The mesoappendix is yellow-weiss and lobulated up to 0.6 cm in thickness. The proximal margin is closed by metallic an and is now inked black. The serosal surface is pale-martinez to purple-weiss with possible exudate. The appendix is serially sectioned to reveal a lumen that measures 0.1-0.2 cm. The lumen is filled with vegetative material. No serosal rupture or defect is identified. Residential Specialist cross-sections are submitted in a single cassette to include the proximal margin, two cross-sections, and a half portion of the distal tip. (1, ss, [id number],m5) DM. dm/08/25/2024GR Specimen(s) Received Appendix Fee Codes(s): 1; 12039 URN MACROSCOPIC NURon 2024 BILIRUBIN CONSTANCE Negative Normal NEG [facility] Comment on above: Performed By: #### N UM #### [facility] ([id number]) [address] [place] [address] 83241 BLOOD/HGB CONSTANCE Negative Normal NEG [facility] Comment on above: Performed By: #### N UM #### [facility] ([id number]) [address] [place] [address] 29314 GLUCOSE CONSTANCE Negative Normal NEG [facility] Comment on above: Performed By: #### N UM #### [facility] ([id number]) [address] [place] [address] 72428 KETONES CONSTANCE Negative Normal NEG [facility] Comment on above: Performed By: #### N UM #### [facility] ([id number]) [address] [place] [address] 55031 LEUKOCYTE ESTERASE CONSTANCE Negative Normal NEG [facility] Comment on above: Performed By: #### N UM #### [facility] ([id number]) [address] [place] [address] 64382 NITRITE CONSTANCE Negative Normal NEG [facility] Comment on above: Performed By: #### N UM #### [facility] ([id number]) [address] [place] [address] 44629 PH CONSTANCE 8.5 Normal 5.0-8.5 [facility] Comment on above: Performed By: #### N UM #### [facility] ([id number]) [address] [place] [address] 41989 PROTEIN CONSTANCE 30 mg/dL Abnormal NEG [facility] Comment on above: Performed By: #### N UM #### [facility] ([id number]) [address] [place] [address] 34316 SPECIFIC GRAVITY CONSTANCE 1.015 Normal 1.003-1.035 [facility] Comment on above: Performed By: #### N UM #### [facility] ([id number]) [address] [place] [address] 67511 UROBILINOGEN CONSTANCE 0.2 eu/dL Normal <1.1 [facility] Comment on above: Performed By: #### N UM #### [facility] ([id number]) [address] [place] [address] 04412 CBC AND AUTO DIFFon 08-22-19 25 ABSOLUTE BASOPHIL 0.1 X10E9/L Normal 0.0-0.2 [facility] Comment on above: Performed By: #### C BCA, CMP, 3040-3 #### [facility] ([id number]) [address] [place] [address] 47674 ABSOLUTE NEUTROPHIL 6.8 X10E9/L High 1.5-6.6 [facility] Comment on above: Performed By: #### Agapito FIGUEREDO CMP, 3040-3 #### [facility] ([id number]) [address] [place] [address] 40700 Basophils/100 WBC (Bld) 0.7 % Normal [facility] Comment on above: Performed By: #### Agapito FIGUEREDO CMP, 3 #### [facility] ([id number]) [address] [place] [address] 28871 Eosinophils (Bld) [#/Vol] 0.1 10*3/uL Normal 0.0-0.4 [facility] Comment on above: Performed By: #### Agapito FIGUEREDO [facility], 3 #### [facility] ([id number]) [address] [place] [address] 60916 Eosinophils/100 WBC (Bld) 1.4 % Normal [facility] Comment on above: Performed By: #### Agapito FIGUEREDO [facility], 3039-10 #### [facility] ([id number]) [address] [place] [address] 07265 Erythrocyte distribution width (RBC) [Ratio] 19.0 % High 11.5-15.0 [facility] Comment on above: Performed By: #### Agapito FIGUEREDO [facility], 3 #### [facility] ([id number]) [address] [place] [address] 99133 Hematocrit (Bld) [Volume fraction] 37.5 % Normal 35-47 [facility] Comment on above: Performed By: #### Agapito FIGUEREDO CMP, 3039-3 #### [facility] ([id number]) [address] [place] [address] 34801 Hemoglobin (Bld) [Mass/Vol] 12.4 g/dL Normal 11.7-15.5 [facility] Comment on above: Performed By: #### Agapito FIGUEREDO CMP, 3039-3 #### [facility] ([id number]) [address] [place] [address] 66098 Lymphocytes (Bld) [#/Vol] 1.3 10*3/uL Normal 1.0-3.5 [facility] Comment on above: Performed By: #### Agapito FIGUEREDO [facility], 3039-10 #### [facility] ([id number]) [address] [place] [address] 19213 Lymphocytes/100 WBC (Bld) 14.5 % Normal [facility] Comment on above: Performed By: #### Agapito FIGUEREDO CMP, 3039-10 #### [facility] ([id number]) [address] [place] [address] 22918 MCH (RBC) [Entitic mass] 25.2 pg Low 27-34 [facility] Comment on above: Performed By: #### Agapito FIGUEREDO [facility], 3039-10 #### [facility] ([id number]) [address] [place] [address] 99517 MCHC (RBC) [Mass/Vol] 32.9 g/dL Normal 32-36 [facility] Comment on above: Performed By: #### Agapito FIGUEREDO CMP, 3039-3 #### [facility] ([id number]) [address] [place] [address] 73018 MCV (RBC) [Entitic vol] 76 fL Low 80-100 [facility] Comment on above: Performed By: #### Agapito FIGUEREDO CMP, 3039-10 #### [facility] ([id number]) [address] [place] [address] 11797 Monocytes (Bld) [#/Vol] 0.8 10*3/uL Normal 0-0.9 [facility] Comment on above: Performed By: #### C BEA, CMP, 3039-3 #### [facility] ([id number]) [address] [place] [address] 82677 Monocytes/100 WBC (Bld) 9.1 % Normal [facility] Comment on above: Performed By: #### Agapito FIGUEREDO, CMP, 3039-3 #### [facility] ([id number]) [address] [place] [address] 02209 Neutrophils/100 WBC (Bld) 74.3 % Normal [facility] Comment on above: Performed By: #### Agapito FIGUEREDO, CMP, 3039-3 #### [facility] ([id number]) [address] [place] [address] 25030 Platelet mean volume (Bld) [Entitic vol] 8.3 fL Normal 7-12 [facility] Comment on above: Performed By: #### Agapito FIGUEREDO, CMP, 3 #### [facility] ([id number]) [address] [place] [address] 33364 Platelets (Bld) [#/Vol] 248 10*3/uL Normal 150-450 [facility] Comment on above: Performed By: #### Agapito FIGUEREDO, CMP, 3039-3 #### [facility] ([id number]) [address] [place] [address] 24559 RBC COUNT 4.91 X10E12/L Normal 3.80-5.20 [facility] Comment on above: Performed By: #### Agapito FIGUEREDO, CMP, 3039-3 #### [facility] ([id number]) [address] [place] [address] 46124 WBC (Bld) [#/Vol] 9.1 10*3/uL Normal 4.0-11.0 [facility] Comment on above: Performed By: #### Agapito FIGUEREDO, CMP, 3039-3 #### [facility] ([id number]) [address] [place] [address] 07321 COMPREHENSIVE METABOLIC PANE Teddy 08-22-2024 Albumin [Mass/Vol] 4.5 g/dL Normal 3.2-5.3 [facility] Comment on above: Performed By: #### C BEA CMP, 3040-3 #### [facility] ([id number]) [address] [place] [address] 97366 ALP [Catalytic activity/Vol] 40 U/L Normal 39-130 [facility] Comment on above: Performed By: #### C BEA, CMP, 3039-3 #### [facility] ([id number]) [address] [place] [address] 48005 ALT [Catalytic activity/Vol] 12 U/L Normal 0-31 [facility] Comment on above: Performed By: #### Agapito FIGUEREDO CMP, 3039-3 #### [facility] ([id number]) [address] [place] [address] 91807 Anion gap [Moles/Vol] 8 mmol/L Normal 5-15 [facility] Comment on above: Performed By: #### C JUAN FIGUEREDO, 3039-3 #### [facility] ([id number]) [address] [place] [address] 71267 AST [Catalytic activity/Vol] 22 U/L Normal 0-41 [facility] Comment on above: Performed By: #### C BCA, CMP, 0-3 #### [facility] ([id number]) [address] [place] [address] 13132 Bilirubin [Mass/Vol] 1.1 mg/dL Normal 0.3-1.2 [facility] Comment on above: Performed By: #### C BCA, CMP, 3040-3 #### [facility] ([id number]) [address] [place] [address] 70372 Calcium [Mass/Vol] 9.6 mg/dL Normal 8.5-10.5 [facility] Comment on above: Performed By: #### C JUAN FIGUEREDO, 3040-3 #### [facility] ([id number]) [address] [place] [address] 54331 Chloride [Moles/Vol] 105 mmol/L Normal 98-109 [facility] Comment on above: Performed By: #### Agapito FIGUEREDO CMP, 3039-3 #### [facility] ([id number]) [address] [place] [address] 83011 CO2 [Moles/Vol] 23 mmol/L Normal 22-32 [facility] Comment on above: Performed By: #### C JUAN FIGUEREDO, 3039-3 #### [facility] ([id number]) [address] [place] [address] 76262 Creatinine [Mass/Vol] 0.74 mg/dL Normal 0.40-1.00 [facility] Comment on above: Result Comment: METH OD TRACEABLE TO IDMS STANDARD Performed By: #### C JUAN FIGUEREDO, 3040-3 #### [facility] ([id number]) [address] [place] [address] 54321 eGFR (CKD-EPI) NON-RACE DEPENDENT >90 Normal >59 [facility] Comment on above: Result Comment: Reported eGFR is based on the CKD-EPI 2020 equation that does not use a race coefficient. Performed By: #### C JUAN FIGUEREDO, 3040-3 #### [facility] ([id number]) [address] [place] [address] 19591 Glucose [Mass/Vol] 96 mg/dL Normal 65-99 [facility] Comment on above: Performed By: #### C JUAN FIGUEREDO, 3040-3 #### [facility] ([id number]) [address] [place] [address] 86570 Potassium [Moles/Vol] 3.8 mmol/L Normal 3.5-5.0 [facility] Comment on above: Performed By: #### C BEA, CMP, 3040-3 #### [facility] ([id number]) [address] [place] [address] 51838 Protein [Mass/Vol] 8.1 g/dL High 6.0-8.0 [facility] Comment on above: Performed By: #### C BCA, CMP, 3040-3 #### [facility] ([id number]) [address] [place] [address] 57133 Sodium [Moles/Vol] 136 mmol/L Normal 134-146 [facility] Comment on above: Performed By: #### Agapito BCA, CMP, 3040-3 #### [facility] ([id number]) [address] [place] [address] 53869 Urea nitrogen [Mass/Vol] 9 mg/dL Normal 5-23 [facility] Comment on above: Performed By: #### Agapito BCA, CMP, 3040-3 #### [facility] ([id number]) [address] [place] [address] 45819 LIPASEon 08-22-2024 Lipase [Catalytic activity/Vol] 31 U/L Normal 17-40 [facility] Comment on above: Performed By: #### Agapito BCA, CMP, 3040-3 #### [facility] ([id number]) [address] [place] [address] 43229 Office Visiton 08-05-2024 Follow-up visit [id number] Pamela Davison 1995 F Date Provider Department Center 08/05/2024 ELIZABETH AMARO Family History Problem Relation Age of Onset Other Other Family Status - Relation Status Age at Other Level of Service:46968 [place] OFFICE/OUTPATIENT NEW MODERATE MDM 45 MINUTES Reason for Visit and Comments: Dizziness [932156] Rapid Heart Rate [539211] - Wore 7 day Holter monitor in May 2024, and also had labs with lipid panel. Syncope [506] - Says she's had syncopal episodes off and on since she was about 14 years old. Nicotine Dependence [72] - She uses a nicotine vape daily. Shortness of Breath [] Palpitations [] Normal [facility] Orders Onlyon 08-05-2024 Orders Only [id number] Pamela Davison 1995 F Date Provider Department Center 08/05/2024 SHAYY VAZQUEZ Hos Family History Problem Relation Age of Onset Other Other Family Status - Relation Status Age at Other Normal [facility] IGP,APTIMA HPV,AGE GDLNon AGE GDLN ACOG TESTING Note . [facility] Comment on above: TESTS RESULT FLAG UN ITS REF RANGE LAB Clinician Provided Cytology Information Source.............Cervix;Endocervix No. of containers..01 ThinPrep Vial Age Algo ACOG Pia... 28- FLAG LEGEND: L-Low Normal,H-High Normal,LL-Alert Low,HH-Alert High <-Panic Low,>-Panic High,A-Abnormal,AA-Critical Abnormal Performed at: 01 =G [facility] [place] [address] Erika Platt MD, HPV APTIMA Negative Negative [facility] Comment on above: This nucleic acid am plification test detects fourteen high- risk HPV types (16,18,31,33,35,39,45,51,52,56,58,59,66,68) without differentiation. Performed at: [address] [id number] Principal Developer: Erika Platt MD, Phone: [phone] Performed at: [address] [id number] Principal Developer: Hector Painting MD, Phone: [phone] IGP, APTIMA HPV, RFX 16/18,45 Note . [facility] Comment on above: TESTS RESULT FLAG UN ITS REF RANGE LAB DIAGNOSIS: 02 NEGATIVE FOR INTRAEPITHELIAL LESION OR MALIGNANCY. Specimen adequacy: 02 Satisfactory for evaluation. Endocervical and/or squamous metaplastic cells (endocervical component) are present. Performed by: Nisha Woods, Quarter Trimmer (ASCP) . 02 Note: Note 03 The Pap smear is a screening test designed to aid in the detection of premalignant and malignant conditions of the uterine cervix. It is not a diagnostic procedure and should not be used as the sole means of detecting cervical cancer. Both false-positive and false-negative reports do occur. Test Methodology: Note 03 This liquid based ThinPrep(R) pap test was screened with the use of an image guided system. HPV Genotype Reflex Note 02 Criteria not met, HPV Genotype not performed. FLAG LEGEND: L-Low Normal,H-High Normal,LL-Alert Low,HH-Alert High <-Panic Low,>-Panic High,A-Abnormal,AA-Critical Abnormal Performed at: 02 SYRNY [facility] [place] [address] [address] Hector Painting MD, 03 WB [facility] [address] [address] Erika Platt MD, BROOM-ALONE CERVIX ENDOCERVIX CLINISYID [facility] TBH UA (CLEAN/CATCH) MICROSC OPIC IF INDICATEon 05-21-2024 BILIRUBIN URINE Negative NEGATIVE [facility] BLOOD URINE Negative NEGATIVE [facility] Clarity (U) CLEAR CLEAR [facility] Color (U) LT. YELLOW YELLOW [facility] GLUCOSE URINE UA Negative NEGATIVE mg/dL [facility] Interpretation and review of laboratory results Abnormal [facility] Ketones Ql (U) Negative NEGATIVE mg/dL [facility] Leukocyte esterase Test strip Ql (U) SMALL Abnormal NEGATIVE [facility] NITRITE URINE Negative NEGATIVE [facility] pH (U) 7.0 [pH] 5.0 - 9.0 [facility] PROTEIN URINE Negative NEG/TRACE mg/dL [facility] SPECIFIC GRAVITY URINE 1.020 1.005 - 1.025 [facility] URINE MICROSCOPIC INDICATED YES [facility] UROBILINOGEN URINE 0.2 EU/dL 0.2 - 1.0 EU/dL [facility] Covid-19 PCR ([facility])on SARS-CoV-2 (COVID-19) RNA TATY+probe Ql (Unsp spec) Not detected Normal NOT DETECTED [facility] Comment on above: Result Comment: When diagnostic [...] for this test is supported by the [employer] of Health and Human Service's declaration that [...] longer be used). Performed By: #### C VDTB #### [facility] [address] [place] [address] Dr. Cricket Vasquez ER URINE PROFILEon 2 Bilirubin Ql (U) Negative Normal NEGATIVE [facility] Comment on above: Performed By: #### Karl PARIS UMICRO #### [facility] [address] [place] [address] Dr. Cricket Vasquez Clarity (U) CLEAR Normal CLEAR [facility] Comment on above: Performed By: #### Karl PARIS UMICRO #### [facility] [address] [place] [address] Dr. Cricket Vasquez Color (U) LT. YELLOW Normal YELLOW [facility] Comment on above: Performed By: #### Karl PARIS UMICRO #### [facility] [address] [place] [address] Dr. Cricket MYERS A micrscopic examination will be performed if indicated. Normal [facility] Comment on above: Performed By: #### Karl PARIS UMICRO #### [facility] [address] [place] [address] Dr. Cricket Vasquez Glucose Ql (U) Negative Normal NEGATIVE [facility] Comment on above: Performed By: #### Karl PARIS UMICRO #### [facility] [address] [place] [address] Dr. Cricket Vasquez Hemoglobin Ql (U) SMALL Abnormal NEGATIVE [facility] Comment on above: Performed By: #### Karl PARIS UMICRO #### [facility] [address] [place] [address] Dr. Cricket Vasquez Ketones Ql (U) 15 mg/dl Abnormal NEGATIVE [facility] Comment on above: Performed By: #### HOSSEIN BARCLAY #### [facility] [address] [place] [address] Dr. Cricket Vasquez LEUKOCYTES Negative Normal NEGATIVE [facility] Comment on above: Performed By: #### KATHY BARCLAYRO #### [facility] [address] [place] [address] Dr. Cricket Vasquez Nitrite Ql (U) Negative Normal NEGATIVE [facility] Comment on above: Performed By: #### KATHY BARCLAYRO #### [facility] [address] [place] [address] Dr. Cricket Vasquez pH (U) 6.0 [pH] Normal 5-9 [facility] Comment on above: Performed By: #### KATHY BARCLAYRO #### [facility] [address] [place] [address] Dr. Cricket Vasquez SPEC GRAVITY 1.025 Normal 1.005-<=1.025 [facility] Comment on above: Performed By: #### KATHY BARCLAYRO #### [facility] [address] [place] [address] Dr. Cricket Vasquez UA PROTEIN Negative Normal NEGATIVE/ TRACE [facility] Comment on above: Performed By: #### KATHY BARCLAYRO #### [facility] [address] [place] [address] Dr. Cricket Vasquez UR MICRO IND INDICATED Normal [facility] Comment on above: Performed By: #### HOSSEIN BARCLAY #### [facility] [address] [place] [address] Dr. Cricket Vasquez Urobilinogen Qn (U) 0.2 {Elizabeth'U}/dL Normal 0.2 - 1. 0 [facility] Comment on above: Performed By: #### KATHY BARCLAYRO #### [facility] [address] [place] [address] Dr. Cricket Vasquez URINE MICROSCOPIC ONLYon BACTERIA NONE SEEN Normal NONE SEEN [facility] Comment on above: Performed By: #### HOSSEIN BARCLAY #### [facility] [address] [place] [address] Dr. Cricket Vasquez Bacteria identified Cx Nom (U) NOT INDICATED Normal [facility] Comment on above: Performed By: #### E WELLINGTON, UMICRO #### [facility] [address] [place] [address] Dr. Cricket Vasquez CAST NONE SEEN Normal NONE SEEN [facility] Comment on above: Performed By: #### E WELLINGTON, UMICRO #### [facility] [address] [place] [address] Dr. Cricket Vasquez Crystals LM Nom (Urine sed) NONE SEEN Normal NONE SEEN [facility] Comment on above: Performed By: #### Karl PARIS UMICRO #### [facility] [address] [place] [address] Dr. Cricket Vasquez Epithelial cells LM Ql (Urine sed) FEW Abnormal NONE SEEN /RARE [facility] Comment on above: Performed By: #### Karl PARIS UMICRO #### [facility] [address] [place] [address] Dr. Cricket Vasquez MUCOUS SMALL Abnormal NONE SEEN [facility] Comment on above: Performed By: #### Karl PARIS UMICRO #### [facility] [address] [place] [address] Dr. Cricket Vasquez RBC 0-2 Normal 0-2 [facility] Comment on above: Performed By: #### Karl PARIS UMICRO #### [facility] [address] [place] [address] Dr. Cricket Vasquez WBC NONE SEEN Normal NONE SEEN [facility] Comment on above: Performed By: #### Karl PARIS UMICRO #### [facility] [address] [place] [address] Dr. Cricket Vasquez Covid-19 PCR ([facility])on 01-06 SARS-CoV-2 (COVID-19) RNA TATY+probe Ql (Unsp spec) Detected Critically abnormal NOT DETECTED [facility] Comment on above: Result Comment: This test is not yet approved or cleared by the [place] FDA. When there are no FDA-approved or cleared tests available, and other criteria are met, FDA can make tests available under an emergency access mechanism called an Emergency Use Authorization (EUA). The EUA for this test is supported by the [employer] of Health and Human Service's (HHS's) declaration [...] longer be used). Performed By: #### C VDTB #### [facility] [address] [place] [address] Dr. Cricket Vasquez ER URINE PROFILEon 2 Bilirubin Ql (U) SMALL Abnormal NEGATIVE The [facility] Comment on above: Performed By: #### E RUR #### [facility] [address] [place] [address] Dr. Cricket Vasquez Clarity (U) CLEAR Normal CLEAR The [facility] Comment on above: Performed By: #### E RUR #### [facility] [address] [place] [address] Dr. Cricket Vasquez Color (U) DK. YELLOW Normal YELLOW The [facility] Comment on above: Performed By: #### E RUR #### [facility] [address] [place] [address] Dr. Cricket Vasquez ERUD A micrscopic examination will be performed if indicated. Normal The [facility] Comment on above: Performed By: #### E RUR #### [facility] [address] [place] [address] Dr. Cricket Vasquez Glucose Ql (U) Negative Normal NEGATIVE The [facility] Comment on above: Performed By: #### E RUR #### [facility] [address] [place] [address] Dr. Cricket Vasquez Hemoglobin Ql (U) Negative Normal NEGATIVE The [facility] Comment on above: Performed By: #### E RUR #### [facility] [address] [place] [address] Dr. Cricket Vasquez Ketones Ql (U) >=[address] [facility] Comment on above: Performed By: #### E RUR #### [facility] [address] [place] [address] Dr. Cricket Vasquez LEUKOCYTES Negative Normal NEGATIVE [facility] Comment on above: Performed By: #### E RUR #### [facility] [address] [place] [address] Dr. Cricket Vasquez Nitrite Ql (U) Negative Normal NEGATIVE The [facility] Comment on above: Performed By: #### E RUR #### [facility] [address] [place] [address] Dr. Cricket Vasquez pH (U) 5.5 [pH] Normal 5-9 [facility] Comment on above: Performed By: #### E RUR #### [facility] [address] [place] [address] Dr. Cricket Vasquez SPEC GRAVITY >=1.030 Abnormal 1.005-<=1.025 [facility] Comment on above: Performed By: #### E RUR #### [facility] [address] [place] [address] Dr. Cricket Vasquez UA PROTEIN TRACE Normal NEGATIVE/ TRACE The [facility] Comment on above: Performed By: #### E RUR #### [facility] [address] [place] [address] Dr. Cricket Vasquez UR MICRO IND NOT INDICATED Normal The [facility] Comment on above: Performed By: #### E RUR #### [facility] [address] [place] [address] Dr. Cricket Vasquez Urobilinogen Qn (U) 1.0 {Elizabeth'U}/dL Normal 0.2 - 1. 0 [facility] Comment on above: Performed By: #### E RUR #### [facility] [address] [place] [address] Dr. Cricket Vasquez GROUP A STREP CULTUREon 01-06 S. pyogenes Ag Ql (Unsp spec) Culture Observations: NEGATIVE FOR GROUP A STREPTOCOCCUS. Normal The [facility] Comment on above: Performed By: #### G RASTCX, SSCRN #### [facility] [address] [place] [address] Dr. Cricket Vasquez INFLUENZA A AND B AGon 02-01 INFLUANEGH SEE BELOW Normal The [facility] Comment on above: Result Comment: Nega tive for Flu A protein angiten. Infection due to Flu A cannot be ruled out. Flu A angiten in the sample may be below the detection limit of the test. Performed By: #### I NFLUAB #### [facility] [address] [place] [address] Dr. Cricket [facility] SEE BELOW Normal [facility] Comment on above: Result Comment: Nega tive for Flu B protein antigen. Infection due to Flu B cannot be ruled out. Flu B antigen in the sample may be below the detection limit of the test. Performed By: #### I NFLUAB #### [facility] [address] [place] [address] Dr. Cricket Vasquez INFLUENZA A AG Negative Normal NEGATIVE SEE COMMENT The [facility] Comment on above: Performed By: #### I NFLUAB #### [facility] [address] [place] [address] Dr. Cricket Vasquez INFLUENZA B AG Negative Normal NEGATIVE SEE COMMENT [facility] Comment on above: Performed By: #### I NFLUAB #### [facility] [address] [place] [address] Dr. Cricket Vasquez INTERNAL CONTROLS Within Normal Limits Normal Wi thin Normal Limits The [facility] Comment on above: Performed By: #### I NFLUAB #### [facility] [address] [place] [address] Dr. Cricket Vasquez STREPT SCREENon 02-01-2022 STREP SCREEN A Negative Normal NEGATIVE The [facility] Comment on above: Performed By: #### G RASTCX, SSCRN #### [facility] [address] [place] [address] Dr. Cricket Vasquez Coding Summaryon 01-16-2019 Coding Summary CODING DATE: 01/16/2019 [facility] STATUS: Home PAYOR: Medicaid HMO ADMIT DX: [...] Traci Larson Date Saved: 01/16/2019 01:11 pm [facility] Provider Orderson 01-16-2019 Provider Orders [id number] [facility] T3 Total LCon 01-16-2019 Triiodothyronine (T3) LC 128 ng/dL 71-180 [facility] Comment on above: Result Comment: Perf ormed At: [facility] [address] [id number] Chelsea Driver PhD Ph:[phone] Performed By: #### 6 [id number], [id number] #### [facility] (DEFAULT) [address] [place] [address] .Auto Diff 1on 01-15-2019 Auto Hood % 11 % Normal 12 [facility] Comment on above: Performed By: #### 6 [id number], [id number] #### [facility] (DEFAULT) [address] [place] [address] Baso Abs# 0.0 x10 Normal 0.0-0.2 [facility] Comment on above: Performed By: #### 6 [id number], [id number] #### [facility] (DEFAULT) [address] [place] [address] Basophils/100 WBC (Bld) 0.6 % Normal 0.2-2.0 [facility] Comment on above: Performed By: #### 6 [id number], [id number] #### [facility] (DEFAULT) [address] [place] [address] Eos Abs# 0.2 x10 Normal 0.0-0.4 [facility] Comment on above: Performed By: #### 6 [id number], [id number] #### [facility] (DEFAULT) [address] [place] [address] 87183 Eosinophils/100 WBC (Bld) 2.9 % Normal 0.9-4.0 [facility] Comment on above: Performed By: #### 6 [id number], [id number] #### [facility] (DEFAULT) [address] [place] [address] 36314 Lymphocytes (Bld) [#/Vol] 2.2 x10 Normal 1.3-2.9 [facility] Comment on above: Performed By: #### 6 [id number], [id number] #### [facility] (DEFAULT) [address] [place] [address] 39422 Lymphocytes/100 WBC (Bld) 36 % Normal 14-48 [facility] Comment on above: Performed By: #### 6 [id number], [id number] #### [facility] (DEFAULT) [address] [place] [address] 95184 Hood Abs# 0.7 x10 Normal 0.0-0.8 [facility] Comment on above: Performed By: #### 6 041508, [id number] #### [facility] (DEFAULT) [address] [place] [address] 17087 Neut Abs# 3.1 x10 Normal 1.5-9.2 [facility] Comment on above: Performed By: #### 6 302815, [id number] #### [facility] (DEFAULT) [address] [place] [address] 28517 Neutrophils/100 WBC (Bld) 50 % Normal 44-88 [facility] Comment on above: Performed By: #### 6 184238, [id number] #### [facility] (DEFAULT) [address] [place] [address] 34143 .Bilirubin Indirecton 2018 Bili Indirect 0.5 mg/dL Normal 0.2-0.8 [facility] Comment on above: Order Comment: Order placed by Discern Expert System Performed By: #### 6 [id number], [id number] #### [facility] (DEFAULT) [address] [place] [address] 20535 Bili Directon 01-15-2019 Bili Direct 0.10 mg/dL Normal 0.10-0.50 [facility] Comment on above: Order Comment: Order placed by [employer] System ([email or web address]) Performed By: #### 6 [id number], [id number] #### [facility] (DEFAULT) [address] [place] [address] CBC w/ Auto Diffon 9 Erythrocyte distribution width (RBC) [Ratio] 16.6 % High 11.5-15.0 [facility] Comment on above: Performed By: #### 6 [id number], [id number] #### [facility] (DEFAULT) [address] [place] [address] Hematocrit (Bld) [Volume fraction] 39.6 % Normal 33.7-40.4 [facility] Comment on above: Performed By: #### 6 [id number], [id number] #### [facility] (DEFAULT) [address] [place] [address] Hemoglobin (Bld) [Mass/Vol] 12.9 g/dL Normal 11.3-15.9 [facility] Comment on above: Performed By: #### 6 [id number], [id number] #### [facility] (DEFAULT) [address] [place] [address] Man Diff? Auto Normal [facility] Comment on above: Performed By: #### 6 [id number], [id number] #### [facility] (DEFAULT) [address] [place] [address] 37162 MCH (RBC) [Entitic mass] 25 pg Normal 24-34 [facility] Comment on above: Performed By: #### 6 210439, [id number] #### [facility] (DEFAULT) [address] [place] [address] 43110 MCHC (RBC) [Mass/Vol] 33 g/dL Normal 26-37 [facility] Comment on above: Performed By: #### 6 [id number], [id number] #### [facility] (DEFAULT) [address] [place] [address] 07606 MCV (RBC) [Entitic vol] 76 fL Low 81-100 [facility] Comment on above: Performed By: #### 6 929442, [id number] #### [facility] (DEFAULT) [address] [place] [address] 29616 Platelet mean volume (Bld) [Entitic vol] 10.6 fL High 6.3-10.2 [facility] Comment on above: Performed By: #### 6 793373, [id number] #### [facility] (DEFAULT) [address] [place] [address] 91195 Platelets (Bld) [#/Vol] 281 x10 Normal 138-427 [facility] Comment on above: Performed By: #### 6 162488, [id number] #### [facility] (DEFAULT) [address] [place] [address] 27836 RBC (Bld) [#/Vol] 5.23 x10 Normal 3.70-5.30 [facility] Comment on above: Performed By: #### 6 000415, [id number] #### [facility] (DEFAULT) [address] [place] [address] 90390 WBC (Bld) [#/Vol] 6.2 x10 [facility] Comment on above: Performed By: #### 6 911458, [id number] #### [facility] (DEFAULT) [address] [place] [address]2848 [facility] Standardon 01-15-2019 eGFR Non AA >60 [facility] Comment on above: Performed By: #### 6 781910, [id number] #### [facility] (DEFAULT) [address] [place] [address] 86294 eGFR AA >60 [facility] Comment on above: Result Comment: Mail Handler angelica Kidney disease could be indicated at eGFRs of less than 60 ml/min/1.73m2. Kidney Failure is indicated at less than 15 ml/min/1.73m2 Performed By: #### 6 756652, [id number] #### [facility] (DEFAULT) [address] [place] [address] 99800 Albumin [Mass/Vol] 4.4 g/dL Normal 3.5-5.0 [facility] Comment on above: Performed By: #### 6 972767, [id number] #### [facility] (DEFAULT) [address] [place] [address] 74539 Albumin/Globulin [Mass ratio] 1.1 {ratio} Low 1.4-2.6 [facility] Comment on above: Performed By: #### 6 830632, 4398790 #### [facility] (DEFAULT) [address] [place] [address] Alk Phos 57 IU/L Normal 32-91 [facility] Comment on above: Performed By: #### 6 916901, 3296093 #### [facility] (DEFAULT) [address] [place] [address] ALT/SGPT 20.0 IU/L Normal 14.0-54.0 [facility] Comment on above: Performed By: #### 6 374925, 9891568 #### [facility] (DEFAULT) [address] [place] [address] Anion gap [Moles/Vol] 15.0 mmol/L Normal 5.0-19.0 [facility] Comment on above: Performed By: #### 6 684079, 5560779 #### [facility] (DEFAULT) [address] [place] [address] AST/SGOT 26 IU/L Normal 15-41 [facility] Comment on above: Performed By: #### 6 109697, [id number] #### [facility] (DEFAULT) [address] [place] [address] Bili Total 0.6 mg/dL Normal 0.3-1.2 [facility] Comment on above: Performed By: #### 6 468246, 4483677 #### [facility] (DEFAULT) [address] [place] [address] 20563 Calcium [Mass/Vol] 9.4 mg/dL Normal 8.9-10.3 [facility] Comment on above: Performed By: #### 6 973979, [id number] #### [facility] (DEFAULT) [address] [place] [address] 06261 Chloride [Moles/Vol] 105 mmol/L Normal 101-111 [facility] Comment on above: Performed By: #### 6 770500, [id number] #### [facility] (DEFAULT) [address] [place] [address] CO2 [Moles/Vol] 23 mmol/L Normal 21-32 [facility] Comment on above: Performed By: #### 6 673639, [id number] #### [facility] (DEFAULT) [address] [place] [address] 79860 Creatinine [Mass/Vol] 0.74 mg/dL Normal 0.60-1.30 [facility] Comment on above: Performed By: #### 6 190499, 8876565 #### [facility] (DEFAULT) [address] [place] [address] 06349 Globulin (S) [Mass/Vol] 4.0 g/dL Normal 1.5-4.3 [facility] Comment on above: Performed By: #### 6 105103, 3533437 #### [facility] (DEFAULT) [address] [place] [address] 70810 Glucose [Mass/Vol] 99.0 mg/dL Normal 74.0-118.0 [facility] Comment on above: Performed By: #### 6 [id number], 4328782 #### [facility] (DEFAULT) [address] [place] [address] 07030 Osmolality [Osmolality] 276 mOsm/L [facility] Comment on above: Performed By: #### 6 133149, [id number] #### [facility] (DEFAULT) [address] [place] [address] 06830 Potassium [Moles/Vol] 3.7 mmol/L Normal 3.6-5.1 [facility] Comment on above: Performed By: #### 6 574989, 9742670 #### [facility] (DEFAULT) [address] [place] [address] 85192 Protein [Mass/Vol] 8.4 g/dL High 6.5-8.1 [facility] Comment on above: Performed By: #### 6 268635, [id number] #### [facility] (DEFAULT) [address] [place] [address] 29826 Sodium [Moles/Vol] 139.0 mmol/L Normal 136.0-144.0 [facility] Comment on above: Performed By: #### 6 844862, 6675985 #### [facility] (DEFAULT) [address] [place] [address] 85980 Urea nitrogen [Mass/Vol] 9 mg/dL Normal 8-26 [facility] Comment on above: Performed By: #### 6 719334, 2153631 #### [facility] (DEFAULT) [address] [place] [address] 66239 Urea nitrogen/Creatinine [Mass ratio] 12.0 mg/mg Normal 4.6-16.2 [facility] Comment on above: Performed By: #### 6 899446, 1446853 #### [facility] (DEFAULT) [address] [place] [address] 55132 T4, Totalon 01-15-2019 T4 [Mass/Vol] 7.67 ug/dL Normal 6.09-12.23 [facility] Comment on above: Performed By: #### 6 865331, 3018558 #### [facility] (DEFAULT) [address] [place] [address] 95289 TSHon 01-15-2019 TSH Qn 2.98 mcIU/mL Normal 0.45-5.33 [facility] Comment on above: Result Comment: Gene ral Population (males and non- females, aged 21-88) 0.45 - 5.33 Females, 1st Trimester 0.05 - 3.70 Females, 2nd Trimester 0.31 - 4.35 Females, 3rd Trimester 0.41 - 5.18 Performed By: #### 6 576762, [id number] #### [facility] (DEFAULT) [address] [place] [address] 43127 C Throaton 10-08-2018 C Throat Ordered by Discern. Normal throat geovanna isolated No pathogens isolated Normal [facility] Comment on above: Performed By: #### 6 [id number], [id number] #### [facility] (DEFAULT) [address] [place] [address] 46682 Coding Summaryon 10-08-2018 Coding Summary CODING DATE: 10/08/2018 FINAL [facility] STATUS: Home PAYOR: Medicaid HMO ADMIT [...] Larson Date Saved: 10/08/2018 10:47 am Normal [facility] ED Clinical Summaryon 2018 ED Clinical Summary [facility] ? Urgent Care [address] [id number] Clinical Summary PERSON INFORMATION Name: PAMELA DAVISON Age: 23 Years Sex: FEMALE : [birth year] MRN: Acct#: Visit Reason: UC - Sore Throat; SORE THROAT Arrival: 10/06/18 17:13:00 Discharge: 10/06/18 17:53:00 LOS: 000 00:40 Check In: 10/06/18 17:13:00 Checkout: 10/06/18 17:53:00 Address: [address] [place] [address] PCP: Provider, None PROVIDER INFORMATION Provider Role [...] cervical lymphadenopathy; Myalgia Patient Understands: Yes - Patient/family/caregi indio verbalizes understanding of instructions given Comment: [facility] ED Note - Physicianon 2018 ED Note [...] History Medical history: Resolved Smoker 06-FEB-2014 12:37:00<$> ([id number]): Resolved. Comments: - Added secondary to documentation in Social History. H/O: kidney infection ([id number]): Resolved.. Surgical history: No active procedure history [...] improvement. Impression and Plan Diagnosis Acute pharyngitis (EJA12-HZ J02.9, Discharge, Medical) Acute tonsillitis (VZK21-LS J03.90, Discharge, Medical) Anterior cervical lymphadenopathy (YHK37-CN R59.0, Discharge, Medical) Myalgia (KPE56-VU M79.10, Discharge, Medical) Plan Disposition: Discharged: Time [...] instructions. [Electronically Signed on: 10/06/2018 18:00 EST] Grant Gunn [Verified on: 10/06/2018 18:00 EST] Grant Gunn Normal [facility] ED Patient Summaryon 019 ED Patient Summary [facility] ? Urgent Care [address] [place] [address] PATIENT DISCHARGE INSTRUCTIONS Patient Information Name: PAMELA DAVISON Age: 23 Years Date of : [birth year] [facility]: [id number] Reason For Visit: UC - Sore Throat; [...] 05/03/2006 Document Revised: 12/29/2016 Document Reviewed: 01/10/2014 [employer] Interactive Patient Education ? 2017 [employer]. Medication Information: The exam and treatment you received today in the [facility] Emergency Department were for an urgent problem and are not intended as complete care. It is important for you to follow up with a doctor, nurse practitioner, or physician?s resident assistant cna for ongoing care. If your symptoms become [...] so we can reach you if necessary. [facility] has provided you with a complete list of medications post discharge. Please inform your casualty claim adjuster/provider of your visit and for further instruction on these medications. Any specific questions regarding your chronic medications and dosages should be discussed with your primary care physician(s) and/or pharmacist. New Medications [facility], [address] [place] [address] [phone], [phone] amoxicillin (amoxicillin 500 mg oral tablet) 1 tab(s) Oral 3 times a day for 10 Days. Refills: 0. Medications to Continue That Have Not Changed Other Medications albuterol (ProAir HFA) 2 puff(s) Inhalation 4 times a day. Visit Information Visit Diagnosis: Diagnoses This Visit Acute pharyngitis (J02.9) Acute tonsillitis (J03.90) Anterior cervical lymphadenopathy (R59.0) Myalgia (M79.10) UC - Sore Throat ([id number]) If you received any narcotics, sedation, or [...] Stop date 10/06/18 17:22:00 EST, Nurse collect, [id number] Radiology Cardiology Viruses or Bacteria What?s got [...] Infection Yes Antibiotics Aren?t Always the Answer www.cdc.gov/getsmart GET SMART Know When Antibiotics Work U.S. Department of Health and Human Services Centers for Disease Control and Prevention April 2014 [facility] Influenza A&B Rapidon 2018 Influenza A Negative Normal Negative [facility] Comment on above: Performed By: #### 6 [id number], [id number] #### [facility] (DEFAULT) [address] [place] [address] Influenza B Negative Normal Negative [facility] Comment on above: Performed By: #### 6 743729, [id number] #### [facility] (DEFAULT) [address] [place] [address] Internal QC OK? Pass [facility] Comment on above: Performed By: #### 6 197650, [id number] #### [facility] (DEFAULT) [address] [place] [address] Strep Aon 10-06-[address] [facility] Comment on above: Performed By: #### 6 327375, [id number] #### [facility] (DEFAULT) [address] [place] [address] Strep procedure control Pass [facility] Comment on above: Performed By: #### 6 150211, [id number] #### [facility] (DEFAULT) [address] [place] [address] Urgent Care Recordon 019 Urgent Care Record [facility] ? Urgent Care [address] [place] [address] PATIENT DISCHARGE INSTRUCTIONS Patient Information Name: PAMELA DAVISON Age: 23 Years Date of : [birth year] Reason For Visit: UC - Sore Throat; SORE THROAT Arrival Time: 10/06/18 17:13:00 Primary Care Physician: Provider, None Attending Physician: Grant Gunn Comment: Visit Diagnosis: Diagnoses This Visit Acute pharyngitis (J02.9) Acute tonsillitis (J03.90) Anterior cervical lymphadenopathy (R59.0) Myalgia (M79.10) UC - Sore Throat ([id number]) If you received any narcotics, sedation, or [...] and treatment you received today in the [facility] were for an urgent problem and are not intended as complete care. It is important for you to follow up with a doctor, nurse practitioner, or physician?s resident assistant cna for ongoing care. If your symptoms become [...] so we can reach you if necessary. [facility] has provided you with a complete list of medications post discharge. Please inform your casualty claim adjuster/provider of your visit and for further instruction on these medications. Any specific questions regarding your chronic medications and dosages should be discussed with your primary care physician(s) and/or pharmacist. New Medications [facility], [address] [place] [address] [phone], [phone] amoxicillin (amoxicillin 500 mg oral tablet) 1 [...] 05/03/2006 Document Revised: 12/29/2016 Document Reviewed: 01/10/2014 [employer] Interactive Patient Education ? 2017 [employer] Viruses or Bacteria What?s got you [...] Infection Yes Antibiotics Aren?t Always the Answer www.cdc.gov/getsmart GET SMART Know When Antibiotics Work U.S. Department of Health and Human Services Centers for Disease Control and Prevention April 2014 [facility] C Throaton 09-17-2018 C Throat Ordered by Discern. Normal throat geovanna isolated No pathogens isolated [facility] Comment on above: Performed By: #### 6 [id number], [id number] #### [facility] (DEFAULT) [address] [place] [address] Coding Summaryon 09-17-2018 Coding Summary CODING DATE: 09/17/2018 FINAL [facility] STATUS: Home PAYOR: Medicaid HMO ADMIT [...] Larson Revised Date Saved: 09/17/2018 08:54 am [facility] ED Clinical Summaryon 2018 ED Clinical Summary [facility] [facility] ? Urgent Care [address] [place] [address] [id number] Clinical Summary PERSON INFORMATION Name: PAMELA DAVISON Age: 23 Years Sex: FEMALE : [birth year] MRN: Acct#: Visit Reason: UC - Sinus Pain or Congestion; UC - Sinus Pain or Congestion; SORE THROAT Arrival: 09/15/18 09:32:00 Discharge: 09/15/18 10:35:00 LOS: 000 01:03 Check In: 09/15/18 09:32:00 Checkout: 09/15/18 10:35:00 Address: [address] [place] [id number] PCP: Provider, None PROVIDER INFORMATION Provider Role [...] infection with cough Patient Understands: Yes - Patient/family/caregi indio verbalizes understanding of instructions given Comment: [facility] ED Note - Physicianon 2018 ED Note [...] History Medical history: Resolved Smoker 06-FEB-2014 12:37:00<$> ([id number]): Resolved. Comments: - Added secondary to documentation in Social History. H/O: kidney infection ([id number]): Resolved.. Surgical history: No active procedure history [...] bronchitis Impression and Plan Diagnosis Sore throat (ZXI41-BG J02.9, Discharge, Medical) Viral upper respiratory tract infection with cough (BLD46-AT J06.9, Discharge, Medical) Acute asthmatic bronchitis (XZM99-TZ J45.909, Discharge, Medical) Plan Disposition: Discharged: Time [...] instructions. [Electronically Signed on: 09/15/2018 15:14 EST] Grant Gunn [Verified on: 09/15/2018 15:14 EST] Grant Gunn Normal [facility] ED Patient Summaryon 019 ED Patient Summary [facility] ? Urgent Care [address] [place] [address] PATIENT DISCHARGE INSTRUCTIONS Patient Information Name: PAMELA [...] these instructions at home: Medicines ? Take xiem-bbm-nfjspup and prescription medicines only as told by [...] 07/26/2004 Document Revised: 07/20/2017 Document Reviewed: 07/20/2017 [employer] Interactive Patient Education ? 2017 [employer] Upper Respiratory Infection, Adult Most upper [...] 01/17/2002 Document Revised: 03/26/2017 Document Reviewed: 10/29/2014 Elsevier Interactive Patient Education ? 2017 [employer] Medication Information: The exam and treatment you received today in the [facility] Emergency Department were for an urgent problem and are not intended as complete care. It is important for you to follow up with a doctor, nurse practitioner, or physician?s resident assistant cna for ongoing care. If your symptoms become [...] so we can reach you if necessary. [facility] has provided you with a complete list of medications post discharge. Please inform your casualty claim adjuster/provider of your visit and for further instruction on these medications. Any specific questions regarding your chronic medications and dosages should be discussed with your primary care physician(s) and/or pharmacist. New Medications [facility], [address] [place] [address] [phone], [phone] benzonatate (Tessalon Perles 100 mg oral capsule) [...] (R05) UC - Sinus Pain or Congestion ([id number]) UC - Sinus Pain or Congestion ([id number]) Viral upper respiratory tract infection with cough [...] Stop date 09/15/18 9:53:00 EST, Nurse collect, [id number] Radiology Cardiology Viruses or Bacteria What?s got [...] Infection Yes Antibiotics Aren?t Always the Answer www.cdc.gov/getsmart GET SMART Know When Antibiotics Work U.S. Department of Health and Human Services Centers for Disease Control and Prevention April 2014 [facility] Influenza A&B Rapidon 2018 Influenza A Negative Normal Negative [facility] Comment on above: Performed By: #### 1 [id number] #### [facility] (DEFAULT) [address] [place] [address] Influenza B Negative Normal Negative [facility] Comment on above: Performed By: #### 1 [id number] #### [facility] (DEFAULT) [address] [place] [address] Internal QC OK? Pass [facility] Comment on above: Performed By: #### 1 [id number] #### [facility] (DEFAULT) [address] [place] [address] Strep Aon 09-15-2018 Strep A Negative Normal Negative [facility] Comment on above: Performed By: #### 6 [id number] #### [facility] (DEFAULT) [address] [place] [id number] Strep procedure control Pass [facility] Comment on above: Performed By: #### 6 [id number] #### [facility] (DEFAULT) [address] [place] [address] Urgent Care Recordon 019 Urgent Care Record [facility] ? Urgent Care [address] [place] [address] PATIENT DISCHARGE INSTRUCTIONS Patient Information Name: PAMELA DAVISON Age: 23 Years Date of : [birth year] Reason For Visit: UC - Sinus Pain or Congestion; UC - Sinus Pain or Congestion; SORE THROAT Arrival Time: 09/15/18 09:32:00 Primary Care Physician: Provider, None Attending Physician: Grant Gunn Comment: Visit Diagnosis: Diagnoses This Visit Acute asthmatic bronchitis (J45.909) Cough (R05) UC - Sinus Pain or Congestion ([id number]) UC - Sinus Pain or Congestion ([id number]) Viral upper respiratory tract infection with cough [...] and treatment you received today in the [facility] were for an urgent problem and are not intended as complete care. It is important for you to follow up with a doctor, nurse practitioner, or physician?s resident assistant cna for ongoing care. If your symptoms become [...] so we can reach you if necessary. [facility] has provided you with a complete list of medications post discharge. Please inform your casualty claim adjuster/provider of your visit and for further instruction on these medications. Any specific questions regarding your chronic medications and dosages should be discussed with your primary care physician(s) and/or pharmacist. New Medications [facility], [address] [place] [address] [phone], [phone] benzonatate (Tessalon Perles 100 mg oral capsule) [...] these instructions at home: Medicines ? Take wxhb-yps-xxwpbyh and prescription medicines only as told by [...] 07/26/2004 Document Revised: 07/20/2017 Document Reviewed: 07/20/2017 [employer] Interactive Patient Education ? 2017 [employer]. Upper Respiratory Infection, Adult Most upper [...] 01/17/2002 Document Revised: 03/26/2017 Document Reviewed: 10/29/2014 [employer] Interactive Patient Education ? 2017 [employer]. Viruses or Bacteria What?s got you [...] Infection Yes Antibiotics Aren?t Always the Answer www.cdc.gov/getsmart GET SMART Know When Antibiotics Work U.S. Department of Health and Human Services Centers for Disease Control and Prevention April 2014 Normal [facility] Vital Signs Date Time Vital Sign Value Performing Clinician Facility 09-09-2024 10:47-0500 Body height 160 cm Katie Rodgers APRN-LUG LOADER Work Phone: [facility] 09-09-2024 10:47-0500 Body mass index (BMI) [Ratio] 28.34 kg/m2 Katie Rodgers INSPECTOR WATCH PARTS-LUG LOADER Work Phone: [facility] 09-09-2024 10:47-0500 Body weight 72.58 kg Katie Rodgers INSPECTOR WATCH PARTS-LUG LOADER Work Phone: [facility] 07-24-2024 17:37-0500 Body height 162.6 cm Charlee Aichholz BUILDING EQUIPMENT OPERATOR Work Phone: [facility] 07-24-2024 17:37-0500 Body mass index (BMI) [Ratio] 29.01 kg/m2 Charlee Aichholz BUILDING EQUIPMENT OPERATOR Work Phone: [facility] 07-24-2024 17:37-0500 Body temperature 98.49 [degF] Charlee Aichholz BUILDING EQUIPMENT OPERATOR Work Phone: [facility] 07-24-2024 17:37-0500 Body weight 76.66 kg Charlee Aichholz BUILDING EQUIPMENT OPERATOR Work Phone: [facility] 07-24-2024 17:37-0500 Diastolic blood pressure 62 mm[Hg] Charlee Aichholz BUILDING EQUIPMENT OPERATOR Work Phone: [facility] 07-24-2024 17:37-0500 Heart rate 79 /min Charlee Aichholz BUILDING EQUIPMENT OPERATOR Work Phone: [facility] 07-24-2024 17:37-0500 Respiratory rate 18 /min Charlee Aichholz BUILDING EQUIPMENT OPERATOR Work Phone: [facility] 07-24-2024 17:37-0500 SaO2% (BldA) [Mass fraction] 98 % Charlee Aichholz BUILDING EQUIPMENT OPERATOR Work Phone: [facility] 07-24-2024 17:37-0500 Systolic blood pressure 112 mm[Hg] Charlee Aichholz BUILDING EQUIPMENT OPERATOR Work Phone: [facility] 06-24-2024 15:10-0500 Body height 162.6 cm Charlee Scottyhholz BUILDING EQUIPMENT OPERATOR Work Phone: [facility] 06-24-2024 15:10-0500 Body mass index (BMI) [Ratio] 28.32 kg/m2 Charlee Aichholz BUILDING EQUIPMENT OPERATOR Work Phone: [facility] 06-24-2024 15:10-0500 Body temperature 97.81 [degF] Charlee Aichholz BUILDING EQUIPMENT OPERATOR Work Phone: [facility] 06-24-2024 15:10-0500 Body weight 74.84 kg Charlee Aichholz BUILDING EQUIPMENT OPERATOR Work Phone: [facility] 06-24-2024 15:10-0500 Diastolic blood pressure 72 mm[Hg] Charlee Aichholz BUILDING EQUIPMENT OPERATOR Work Phone: [facility] 06-24-2024 15:10-0500 Heart rate 75 /min Charlee Aichholz BUILDING EQUIPMENT OPERATOR Work Phone: [facility] 06-24-2024 15:10-0500 Respiratory rate 18 /min Charlee Aichholz BUILDING EQUIPMENT OPERATOR Work Phone: [facility] 06-24-2024 15:10-0500 SaO2% (BldA) [Mass fraction] 100 % Charlee Scottyhholz BUILDING EQUIPMENT OPERATOR Work Phone: [facility] 06-24-2024 15:10-0500 Systolic blood pressure 108 mm[Hg] Charlee Aichholz BUILDING EQUIPMENT OPERATOR Work Phone: [facility] 05-14-2024 15:31-0400 Body height 162.6 cm Charlee Aichholz BUILDING EQUIPMENT OPERATOR Work Phone: [facility] 05-14-2024 15:31-0400 Body mass index (BMI) [Ratio] 26.67 kg/m2 Charlee Aichholz BUILDING EQUIPMENT OPERATOR Work Phone: [facility] 05-14-2024 15:31-0400 Body temperature 98.8 [degF] Charlee Aichholz BUILDING EQUIPMENT OPERATOR Work Phone: [facility] 05-14-2024 15:31-0400 Body weight 70.49 kg Charlee Simonmendoza BUILDING EQUIPMENT OPERATOR Work Phone: [facility] 05-14-2024 15:31-0400 Diastolic blood pressure 76 mm[Hg] Charlee Michael BUILDING EQUIPMENT OPERATOR Work Phone: [facility] 05-14-2024 15:31-0400 Heart rate 104 /min Charlee Richardz BUILDING EQUIPMENT OPERATOR Work Phone: [facility] 05-14-2024 15:31-0400 Respiratory rate 18 /min Charlee Michael BUILDING EQUIPMENT OPERATOR Work Phone: [facility] 05-14-2024 15:31-0400 SaO2% (BldA) [Mass fraction] 99 % Charlee Michael BUILDING EQUIPMENT OPERATOR Work Phone: [facility] 05-14-2024 15:31-0400 Systolic blood pressure 124 mm[Hg] Charlee Simonmendoza BUILDING EQUIPMENT OPERATOR Work Phone: [facility] Encounters Encounter Date Encounter Type Care Provider Facility Start: 09-09-2024 End: 09-09-2024 Postop follow up visit related to original px Katie Chang Rodgers INSPECTOR WATCH PARTS-LUG LOADER Work Phone: [facility] Comment on above: Status post laparosc opic appendectomy (Primary Dx) Start: 09-09-2024 End: 09-09-2024 ambulatory [facility] Start: 09-06-2024 End: 09-06-2024 Emergency department patient visit [facility] Start: 08-22-2024 End: 08-23-2024 ambulatory [facility] Start: 08-05-2024 End: 08-05-[address] [facility] Start: 07-24-2024 End: 07-24-2024 Periodic preventive med est patient 18-39 yrs Charlee Michael BUILDING EQUIPMENT OPERATOR Work Phone: [facility] Comment on above: Well woman exam with routine gynecological exam (Primary Dx); Overweight (BMI 25.0-29.9); Tobacco dependence; Vaginal discharge; Dysmenorrhea Start: 07-24-2024 End: 07-24-2024 ambulatory CHARLEE DARIANHOLZ Not Available Start: 07-24-2024 End: 07-24-2024 Bamboo flowsheet Charlee Rodriguez BUILDING EQUIPMENT OPERATOR Work Phone: [facility] Start: 07-24-2024 End: 08-05-2024 Bamboo flowsheet Charlee Rodriguez BUILDING EQUIPMENT OPERATOR Work Phone: [facility] Start: 07-24-2024 End: 08-05-2024 Clinisync Result Encounter Charlee Rodriguez BUILDING EQUIPMENT OPERATOR Work Phone: [facility] External Department Unsolicited Start: 07-24-2024 End: 07-24-2024 Patient encounter procedure Charlee Rodriguez BUILDING EQUIPMENT OPERATOR Work Phone: [facility] Start: 06-24-2024 End: 06-24-2024 Office outpatient visit 15 minutes Charlee Rodriguez BUILDING EQUIPMENT OPERATOR Work Phone: [facility] Comment on above: Dizziness and giddin ess (Primary Dx); Bipolar disorder, unspecified (CMS/HCC); Tobacco dependence; Iron deficiency anemia, unspecified iron deficiency anemia type; Tachycardia; Bipolar affective disorder, remission status unspecified (CMS/HCC) Start: 06-24-2024 End: 06-24-2024 ambulatory CHARLEE AICHHOLZ Not Available Start: 06-24-2024 End: 06-24-2024 Bamboo flowsheet Charlee Rodriguez BUILDING EQUIPMENT OPERATOR Work Phone: [facility] Start: 06-24-2024 End: 06-24-2024 Bamboo flowsheet Charleebernardo Rodriguez BUILDING EQUIPMENT OPERATOR Work Phone: [facility] Start: 05-24-2024 End: 05-24-2024 Refill Charlee Rodriguez BUILDING EQUIPMENT OPERATOR Work Phone: [facility] Comment on above: Iron deficiency anem ia, unspecified iron deficiency anemia type (Primary Dx) Start: 05-21-2024 End: 05-21-2024 Clinisync Result Encounter Charlee Ramospool BUILDING EQUIPMENT OPERATOR Work Phone: [facility] External Department Unsolicited Start: 05-21-2024 End: 05-21-2024 Clinisync Result Encounter Charlee Ramospool BUILDING EQUIPMENT OPERATOR Work Phone: [facility] External Department Unsolicited Start: 05-14-2024 End: 05-14-2024 Office outpatient visit 25 minutes Charlee Scottysangitamendoza BUILDING EQUIPMENT OPERATOR Work Phone: [facility] Comment on above: Dizziness and giddin ess (Primary Dx); Anemia due to other cause, not classified; Tobacco dependence; Overweight (BMI 25.0-29.9) Start: 05-14-2024 End: 05-14-2024 ambulatory CHARLEE SCOTTYSangitaMENDZOA Not Available Start: 04-15-2022 End: 04-15-2022 ambulatory LUG LOADER CHARLEE MICHAEL Facility:[facility] Start: 02-01-2022 End: 02-01-2022 ambulatory [facility] CHARLEE SCOTTYSangitaMENDOZA Facility:[facility] Start: 01-03-2022 End: 01-03-2022 ambulatory LUG LOADER CHARLEE SCOTTYSangitaMENDOZA Facility: Procedures Date Procedure Procedure Detail Performing Clinician Start: 07-24-2024 IGP,APTIMA HPV,AGE GDLN Charlee Michael BUILDING EQUIPMENT OPERATOR Work Phone: Start: 07-24-2024 Microscopic observat ion [Identifier] in Cervix by Cyto stain Charlee Michael BUILDING EQUIPMENT OPERATOR Work Phone: Start: 05-21-2024 TBH UA (CLEAN/CATCH) MICROSCOPIC IF INDICATE Charlee Michael BUILDING EQUIPMENT OPERATOR Work Phone: Start: 05-26-2021 Microscopic observat ion [Identifier] in Cervix by Cyto stain [facility] Work Phone: Plan of Treatment Date Care Activity Detail Author Start: 07-24-2027 Screening for malign ant neoplasm of cervix [facility] Start: 09-06-2025 Adult BMI Screening Adult BMI Screen ing [facility] Start: 09-06-2025 Tobacco Screening Tobacco Screening [facility] Start: 10-03-2024 End: 10-03-2024 Patient encounter procedure 10/03/2024 3:40 PM EST Office Visit [facility] [address] [place] [address] Charlee Rodriguez, BUILDING EQUIPMENT OPERATOR [address] [place] [address] [facility] Start: 09-24-2024 End: 09-24-2024 Patient encounter procedure 09/24/2024 3:40 PM EST Office Visit [facility] [address] [place] [address] Charlee Rodriguez, KIMBERLEE [address] [place] [phone] [facility] Start: 09-12-2024 End: 09-12-2024 Patient encounter procedure 09/12/2024 1:00 PM EST Office Visit [facility] [address] [place] [phone] Charlee Krueger, INSPECTOR WATCH PARTS-LUG LOADER [address] [facility] [address] [facility] Start: 08-24-2024 End: 05-24-2025 CBC W Auto Differential panel - Blood CBC and differential Lab Routine Iron deficiency anemia, unspecified iron deficiency anemia type Expected: 08/24/2024 (Approximate), Expires: 05/24/2025 [facility] Comment on above: Expected: 08/24/2024 (Approximate), Expires: 05/24/2025 Start: 08-24-2024 End: 05-24-2025 Iron + transferrin + TIBC Iron + transferrin + TIBC Lab Routine Iron deficiency anemia, unspecified iron deficiency anemia type Expected: 08/24/2024 (Approximate), Expires: 05/24/2025 [facility] Work Phone: Comment on above: Expected: 08/24/2024 (Approximate), Expires: 05/24/2025 Start: 08-05-2024 End: 08-05-2024 Patient encounter procedure 08/05/2024 3:20 PM EST [facility] [address] [place] [address] Charlee Rodriguez, BUILDING EQUIPMENT OPERATOR [address] [place] [phone] [facility] Start: 07-24-2024 End: 07-24-2024 Patient encounter procedure 07/24/2024 5:30 PM EST Procedure Visit [facility] [address] [place] [phone] Charlee Rodriguez, BUILDING EQUIPMENT OPERATOR [address] [place] [phone] Overweight (BMI 25.0-29.9) (Primary Dx); Tobacco dependence; Well woman exam with routine gynecological exam [facility] Comment on above: Overweight (BMI 25.0 -29.9) (Primary Dx); Tobacco dependence; Well woman exam with routine gynecological exam Start: 07-24-2024 End: 07-24-2025 THIN PREP TIS PAP AND HR HPV DNA THIN PREP TIS PAP AND HR HPV DNA Pathology and Cytology Routine Well woman exam with routine gynecological exam Expected: 07/24/2024 (Approximate), Expires: 07/24/2025 [facility] Work Phone: Comment on above: Expected: 07/24/2024 (Approximate), Expires: 07/24/2025 Start: 07-05-2024 Influenza vaccination Influenza Vacc ine (#1) [facility] Comment on above: Postponed from 04/07 (Other Patient Reasons) Start: 06-24-2024 End: 06-24-2024 Patient encounter procedure [facility] Comment on above: Tobacco dependence ( Primary Dx); Bipolar disorder, unspecified (CMS/HCC); Iron deficiency anemia, unspecified iron deficiency anemia type Start: 05-26-2024 Screening for malign ant neoplasm of cervix Pap Smear [facility] Start: 05-14-2024 End: 05-14-2025 CBC W Auto Differential panel - Blood CBC and differential Lab Routine Anemia due to other cause, not classified Expected: 05/14/2024 (Approximate), Expires: 05/14/2025 [facility] Work Phone: Comment on above: Expected: 05/14/2024 (Approximate), Expires: 05/14/2025 Start: 05-14-2024 End: 05-14-2025 Cobalamin (Vitamin B12) [Mass/volume] in Serum or Plasma Vitamin B12 Lab Routine Anemia due to other cause, not classified Expected: 05/14/2024 (Approximate), Expires: 05/14/2025 [facility] Comment on above: Expected: 05/14/2024 (Approximate), Expires: 05/14/2025 Start: 05-14-2024 End: 05-14-2025 Comprehensive metabolic 2000 panel - Serum or Plasma Comprehensive metabolic panel Lab Routine Dizziness and giddiness Expected: 05/14/2024 (Approximate), Expires: 05/14/2025 [facility] Comment on above: Expected: 05/14/2024 (Approximate), Expires: 05/14/2025 Start: 05-14-2024 End: 05-14-2025 Holter monitor study Holter monitor Imaging Routine Dizziness and giddiness Expected: 05/14/2024 (Approximate), Expires: 05/14/2025 [facility] Comment on above: Expected: 05/14/2024 (Approximate), Expires: 05/14/2025 Start: 05-14-2024 End: 05-14-2025 Iron + transferrin + TIBC Iron + transferrin + TIBC Lab Routine Anemia due to other cause, not classified Dizziness and giddiness Expected: 05/14/2024 (Approximate), Expires: 05/14/2025 [facility] Comment on above: Expected: 05/14/2024 (Approximate), Expires: 05/14/2025 Start: 05-14-2024 End: 05-14-2025 Lipid 1996 panel - Serum or Plasma Lipid panel Lab Routine Overweight (BMI 25.0-29.9) Expected: 05/14/2024 (Approximate), Expires: 05/14/2025 [facility] Comment on above: Expected: 05/14/2024 (Approximate), Expires: 05/14/2025 Start: 05-14-2024 End: 05-14-2025 Thyrotropin [Units/volume] in Serum or Plasma TSH Lab Routine Dizziness and giddiness Expected: 05/14/2024 (Approximate), Expires: 05/14/2025 [facility] Comment on above: Expected: 05/14/2024 (Approximate), Expires: 05/14/2025 Start: 05-14-2024 End: 05-14-2025 Thyroxine (T4) free [Mass/volume] in Serum or Plasma T4, free Lab Routine Dizziness and giddiness Expected: 05/14/2024 (Approximate), Expires: 05/14/2025 [facility] Comment on above: Expected: 05/14/2024 (Approximate), Expires: 05/14/2025 Start: 05-14-2024 End: 05-14-2025 Urinalysis complete panel - Urine Urinalysis with reflex microscopic (clean catch) Lab Routine Tobacco dependence Dizziness and giddiness Expected: 05/14/2024 (Approximate), Expires: 05/14/2025 [facility] Comment on above: Expected: 05/14/2024 (Approximate), Expires: 05/14/2025 Start: 04-07-2024 COVID-19 Vaccine ( season) COVID-19 Vaccine ( season) [facility] Start: 04-07-2024 Influenza vaccination [facility] Start: 2023 Screening for malign ant neoplasm of cervix [facility] Start: 2014 Screening for malign ant neoplasm of cervix Pap Smear [facility] Start: 02-04-2012 DTaP,Tdap and Td Vaccines (1 - Tdap) DTaP,Tdap and Td Vaccines (1 - Tdap) [facility] Start: 2011 Adult BMI Follow Up Plan Adult BMI Follow Up Plan Pay with a Tweet Start: 2005 Depression Screening Depression Scre jeff Pay with a Tweet Start: 1993 Tobacco Counseling Tobacco Counselin joya [facility] [employer] Payers Date Payer Category Payer Medicaid [employer] [id number] 2020-Present [address] [place] [phone] [id number] 2020 Medicaid (Managed Care) [facility] MEDICAID [id number] 2020 Medicaid [place] [employer] [employer] [id number] 1993 Unknown [id number] 2.16.840.1.426004.3.579.2. 593 1993 Unknown [id number] 2.16.840.1.736307.3.579.2. 593 1993 Unknown [id number] 2.16.840.1.621030.3.579.2. 593 1993 Unknown [id number] 2.16.840.1.649861.3.579.2. 9 1993 Unknown [id number] 2.16.840.1.066726.3.579.2. 1259 1993 Unknown [id number] 2.16.840.1.690610.3.579.2. 9 1993 Unknown [id number] 2.16.840.1.097610.3.579.2. 1286 1993 Unknown [id number] 2.16.840.1.617982.3.579.2. 1286 1993 Unknown [id number] 2.16.840.1.813449.3.579.2. 1286 1959 Unknown [id number] Social History Date Type Detail Facility Start: 08-07-2022 End: 08-23-2024 Tobacco smoking status [facility] Smokes tobacco [facility] [facility] Start: 05-14-2024 Tobacco use and exposure User of smokeless tobacco [facility] Start: 05-14-2024 End: 09-09-2024 Alcoholic beverage intake Lifetime non-drinker (finding) [facility] Start: 09-16-2020 End: 05-14-2024 History of Social function [facility] Start: 09-16-2020 End: 05-14-2024 Tobacco use panel [facility] Start: 05-14-2024 Tobacco Comment vape [facility] Start: 05-14-2024 Alcohol Comment caffine: 1 16oz soda daily and 1 cup of coffee daily [facility] Start: 1995 Sex assigned at Not on file [facility] Start: 08-07-2022 History of tobacco use Tobacco Use Types Packs/Day Years Used Date Smoking Tobacco: Every Day Vaping/E-cigarettes Started: 08/07/2022 Smokeless Tobacco: Never [facility] [employer] [facility] Start: 08-23-2024 Tobacco use and exposure Smokeless tobacco non-user [facility] Has the Infogram, or [facility] threatened to shut off services in your home in past 12Mo No [facility] In the past 12 month s, has lack of transportation kept you from medical appointments or from getting medications? No [facility] Start: 08-22-2024 Tobacco Comment 2 months [facility] Start: 1995 Sex assigned at Female [facility] Start: 03-10-2015 Sex Female (finding) [facility] Start: 08-23-2024 Gender identity Identifies as female gender (finding) [facility] Start: 08-23-2024 Sexual orientation Heterosexual (finding) [facility] Clinical Notes 05-14-2024 to 09-09-2024 Katie Rodgers, INSPECTOR WATCH PARTS-LUG LOADER - 09/09/2024 10:45 AM ESTLisa Michael, BUILDING EQUIPMENT OPERATOR - 07/24/2024 6:19 PM ESTLisa Michael, BUILDING EQUIPMENT OPERATOR - 07/24/2024 6:18 PM ESTHUMBRAPHAEL MALDONADO - 07/24/2024 5:30 PM ESTPatient Instructions Note Date & Type Note Facility 09-09-2024 History of Present illness Narrative Images from the original note were not included. Stefany Davison is a 29 y.o. female status post laparoscopic appendectomy on 08/23/2024. On Monday, she was having an increased amount of abdominal pain so she presented to the emergency department. CT abdomen and pelvis was negative. No leukocytosis. She is a single mom and states she thinks she overdid it. She is feeling better today. She is tolerating oral intake. She is having bowel movements. She denies fever. Objective There were no vitals filed for this visit. Physical Exam Constitutional: General: She is not in acute distress. Appearance: Normal appearance. She is not ill-appearing. Pulmonary: Effort: Pulmonary effort is normal. Abdominal: General: There is no distension. Palpations: Abdomen is soft. Tenderness: There is no abdominal tenderness. There is no guarding. Skin: General: Skin is warm and dry. Findings: Bruising present. No erythema. Comments: Lap sites clean, dry and intact without signs of infection. Minimal bruising around umbilicus. Neurological: Mental Status: She is alert. 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 Plan No pushing, pulling, lifting over 10 lb for another 4 weeks. Follow up as needed. Status post laparoscopic appendectomy [Z90.49] OMAR SHAFER [facility] General Surgery [place] This note was created with the assistance of a speech recognition program. While intending to generate a timely document that accurately reflects the content of the visit, no guarantee can be provided that every grammatical or spelling mistake has been or will be identified or corrected. Thank you for your understanding. OMAR Shafer 09/09/24 1104 documented in this encounter [facility] 08-05-2024 Note [facility] Note Reason for cardiology consult: Syncope Chief Complaint: Syncope HPI: Pamela Davison is a 29 y.o. female with history of mild asthma iron deficiency anemia. She has been having episodes of syncope usually when she is standing. Initially she feels ringing in her ears and stars in front of her eyes and she feels clammy and sweaty with increased heart rate and she feels nauseous with shoulder pain. Sometimes she can lower herself down but sometimes she passes out. It occurred the first time when she was 14 years old but she was told that because she does not eat and drink well. In any case they were milder and less frequent but over the last year or so it occurs about twice a week. Patient states that she drinks about 4-5 bottles of water a day. She drinks 2 cups of coffee and soda a day. She denies any alcohol. She smokes marijuana at night. She had COVID infection about 2 to 3 years ago and there is no correlation between COVID and the start of her symptoms. First that she did not have problem with dizziness or syncope when she was . She denies any chest pain or shortness of breath at rest or with exertion. She denies orthopnea or paroxysmal nocturnal dyspnea or legs edema or leg discomfort on exertion. She is a smoker. She denies alcohol. She smokes marijuana at night Regarding family history she has a niece with POTS syndrome. Her mother had COPD. Cardiology ROS: GENERAL: Denies fever, chills, night sweats, weight loss. HEENT: Denies changes in vision, photophobia, changes in hearing, epistaxis, oral bleeding. CARDIOVASCULAR: Denies chest pain, exertional dyspnea, orthopnea/PND, lower extremity edema, she reports episodes of dizziness and syncope as described above associated with palpitation and increased heart rate. RESPIRATORY: Denies SOB, coughing, wheezing GI: Denies abdominal pain, nausea/vomiting, heartburn, melena/hematochezia. RENAL: Denies dysuria, hematuria, flank pain. MSK: Denies muscle weakness/pain, arthralgias/joint pain. NEUROLOGIC: Denies LOC, weakness, numbness, headaches. SKIN: Denies abnormal rashes or bleeding. PSYCH: Denies significant anxiety, depression, sleep disturbances. Past Medical History She has a past medical history of Asthma and Iron deficiency anemia. Surgical History She has a past surgical history that includes section, classic. Social History She reports that she has been smoking cigarettes. She has never used smokeless tobacco. She reports that she does not currently use alcohol. She reports current drug use. Frequency: 7.00 times per week. Drug: Marijuana. Family History Family History Problem Relation Name Age of Onset Other (POTS) Other Allergies Patient has no known allergies. Medications Current Outpatient Medications: ferrous sulfate 325 (65 Fe) MG tablet, Take 325 mg by mouth with breakfast., Disp: , Rfl: Last Recorded Vitals Visit Vitals BP 110/68 (BP Location: Left arm, Patient Position: Standing) Pulse 78 Ht 1.6 m (5' 3 ) Wt 76.7 kg (169 lb) SpO2 99% BMI 29.94 kg/m??? Smoking Status Every Day BSA 1.85 m??? Orthostatic vitals: Lying blood pressure 104/72, heart rate 84. Sitting blood pressure 104/72, heart rate 78 Standing blood pressure 110/68 with heart rate of 78 Physical Examination: GENERAL: alert and oriented x3, well developed, in no acute distress. HEAD: atraumatic, normocephalic. EYES: VIDHI, EOMI. NECK: trachea midline, no JVD present, no carotid bruits present. CARDIAC: S1, S2 present. RRR. No murmur, rubs, or gallops. RESPIRATORY: CTAB, no increased effort of breathing, no rales, rhonchi, or wheezing. ABDOMEN: soft, nontender, nondistended. EXTREMITIES: no lower extremity edema, peripheral pulses are 2+ bilaterally. No rash/skin discoloration present. NEURO: strength/sensation equal and symmetric in bilateral upper and lower extremities. PSYCH: appropriate mood, affect, and judgement. Labs: 05/21/2024 White blood count 4.8, hemoglobin 11.9, hematocrit 38.3, platelets 286 Sodium 141, potassium 3.9, BUN 7, creatinine 0.74, GFR above 60, glucose 81, calcium 8.9 Total bilirubin 0.5, AST 17, ALT 18, alk phos 54, total protein 7.5, albumin 3.8 Triglyceride 31, cholesterol 157, LDL 79, HDL 72 TSH 1.549, free T40.96 Last Images: EKG today 08/05/2024 showed normal sinus rhythm, heart rate 73 bpm, normal EKG Assessment and Plan: Syncope, clinically appears to represent neurocardiogenic syncope/orthostatic hypotension Tachycardia associated with syncope, event monitor showed only sinus tachycardia History of mild asthma History of anemia on iron Overweight BMI 29.9 kg/m??? Tobacco and marijuana abuse Plan: The patient was advised to avoid caffeine and alcohol and to increase her fluid intake to about 2 L a day and to add salt to her diet The patient was given a prescription for knee-high compre (more content not included)... [facility] 07-24-2024 History of Present illness Narrative Associated Problem(s): Dysmenorrhea If would like to start BCP to help with pain and flow contact office Associated Problem(s): Vaginal discharge Suspect yeast, will treat with diflucan Pt's last menses was last week. Pt states her periods last about 7 days she does have heavy cramping and bleeding during. Pt is concern there is a yeast present she is having thicker darker white discharge with an odor. Pt states there is a mole on her back that was noticed after her daughter was born and was told to get checked out however she never did. Pt states she had her last pap about two years ago and has not had an abnormal pap Images from the original note were not included. Pamela Davison is a 29 y.o. female presents with chief complaint of Gynecologic Exam HPI: Gynecologic Exam The patient's primary symptoms include a genital odor and vaginal discharge. The patient's pertinent negatives include no genital itching, genital lesions, genital rash, missed menses, pelvic pain or vaginal bleeding. This is a new problem. The problem occurs daily. The patient is experiencing no pain. She is not . Pertinent negatives include no abdominal pain, back pain, constipation, diarrhea, discolored urine, dysuria, fever, flank pain, headaches, hematuria, nausea, painful intercourse, rash, sore throat or vomiting. The vaginal discharge was milky and white. There has been no bleeding. She has not been passing clots. She has not been passing tissue. Nothing aggravates the symptoms. She is sexually active. No, her partner does not have an STD. She uses nothing for contraception. Her menstrual history has been regular. Her past medical history is significant for a section and menorrhagia. There is no history of an STD or a terminated . SUBJECTIVE: MEDICATIONS: Current Outpatient Medications Medication Instructions fluconazole (Diflucan) 150 MG tablet One time dose, may repeat in 3 days ALLERGIES: No Known Allergies REVIEW OF SYMPTOMS: Review of Systems Constitutional: Negative for appetite change, fatigue, fever and unexpected weight change. HENT: Negative for congestion, ear pain, sinus pressure, sinus pain and sore throat. Eyes: Negative for pain, discharge and visual disturbance. Breasts: Negative for breast mass and breast discharge. Respiratory: Negative for apnea, cough, chest tightness, shortness of breath and wheezing. Cardiovascular: Negative for chest pain, palpitations and leg swelling. Gastrointestinal: Negative for abdominal pain, constipation, diarrhea, nausea and vomiting. Genitourinary: Positive for menorrhagia, menstrual problem (dysmenorrhea and menorrhagia) and vaginal discharge. Negative for decreased urine volume, difficulty urinating, dysuria, flank pain, hematuria, missed menses and pelvic pain. Musculoskeletal: Negative for arthralgias, back pain, gait problem and joint swelling. Skin: Negative for color change and rash. Neurological: Negative for dizziness, tremors, weakness and headaches. Psychiatric/Behavioral: Negative for agitation, hallucinations and suicidal ideas. The patient is not nervous/anxious. Hematological: Negative for adenopathy. Does not bruise/bleed easily. Endocrine: Negative for cold intolerance, heat intolerance, polydipsia and polyuria. Allergic/Immunologic: Negative for environmental allergies and food allergies. PAST MEDICAL HISTORY Past Medical History: Diagnosis Date Anemia Past Surgical History: Procedure Laterality Date SECTION, CLASSIC family history includes Diabetes in her mother; Diabetes type II in her father; Hypertension in her father and mother; Other in an other family member; Stroke in her paternal grandfather. OBJECTIVE: Visit Vitals BP 112/62 (BP Location: Left arm, Patient Position: Sitting, BP Cuff Size: Adult long) Pulse 79 Temp 98.5 F (Temporal) Resp 18 Ht 5' 4 Wt 169 lb SpO2 98% BMI 29.01 kg/m Smoking Status Every Day BSA 1.86 m Physical Exam Vitals and nursing note reviewed. Exam conducted with a nurse examiner present. Constitutional: General: She is not in acute [...] is normal. Breath sounds: Normal breath sounds. Chest: Breasts: Anthony Score is 5. Right: Absent. No swelling, inverted nipple, mass, nipple discharge, skin change or tenderness. Left: Absent. No swelling, inverted nipple, mass, nipple discharge, skin change or tenderness. Abdominal: General: Bowel sounds are normal. There is no distension. Palpations: Abdomen is soft. There is no mass. Tenderness: There is no abdominal tenderness. Hernia: There is no hernia in the left inguinal area or right inguinal area. Genitourinary: Exam position: Lithotomy position. Pubic Area: No rash or pubic lice. Labia: Right: No rash or tenderness. Left: No rash or tenderness. Urethra: No prolapse or urethral lesion. Vagina: No foreign body. Vaginal discharge (whitish milky) present. No erythema, tenderness, bleeding, lesions or prolapsed vaginal zavaleta. Cervix: Normal. No cervical motion tenderness, friability, erythema or eversion. Uterus: Normal. Not deviated, not enlarged, not fixed, not tender and no uterine prolapse. Adnexa: Right adnexa normal and left adnexa normal. Right: No mass, tenderness or fullness. Left: No mass, tenderness or fullness. Musculoskeletal: General: Normal range of motion. Cervical back: Normal range of motion and neck supple. Right lower leg: No edema. Left lower leg: No edema. Lymphadenopathy: Upper Body: Right upper body: No supraclavicular, axillary or pectoral adenopathy. Left upper body: No supraclavicular, axillary or pectoral adenopathy. Lower Body: No right inguinal adenopathy. No left inguinal adenopathy. Skin: General: Skin is warm and dry. Capillary Refill: Capillary refill takes 2 to 3 seconds. Findings: No rash. Comments: Scattered scabbed areas Neurological: General: No focal deficit present. Mental Status: She is alert and oriented to person, place, and time. Psychiatric: Mood and Affect: Mood normal. Behavior: Behavior normal. Thought Content: Thought content normal. Judgment: Judgment normal. ASSESSMENT AND PLAN: Follow up in about 2 months (around 09/24/2024) for Recheck. Problem List Items Addressed This Visit Tobacco dependence The patient has been advised of the risks of continued smoking: stroke, RI, all forms of cancer, lung disease, and . Options for quitting smoking include: cold turkey, hypnosis, acupuncture, nicotine replacement meds (gum, lozenges, and patches), Buproprion, and Varenicline. At this time pt is encouraged to evaluate their goals for wanting to quit smoking, and reach out to provider when ready to start this process Overweight (BMI 25.0-29.9) Well woman exam with routine gynecological exam - Primary Thin prep Fu as per pap indications Monthly BSE, safe sex practices Exercise most days of the week at least 30 mins Relevant Orders THIN PREP TIS PAP AND HR HPV DNA Vaginal discharge Suspect yeast, will treat with diflucan Relevant Medications fluconazole (Diflucan) 150 MG tablet Dysmenorrhea If would like to start BCP to help with pain and flow contact office Associated Problem(s): Well woman exam with routine gynecological exam Thin prep Fu as per pap indications Monthly BSE, safe sex practices Exercise most days of the week at least 30 mins Associated Problem(s): Tobacco dependence The patient has been advised of the risks of continued smoking: stroke, RI, all forms of cancer, lung disease, and . Options for quitting smoking include: cold turkey, hypnosis, acupuncture, nicotine replacement meds (gum, lozenges, and patches), Buproprion, and Varenicline. At this time pt is encouraged to evaluate their goals for wanting to quit smoking, and reach out to provider when ready to start this process documented in this encounter [facility] 07-24-2024 Instructions Charlee Rodriguez NP - 07/24/2024 5:30 PM EST Pap smear: results 7-10 days we will call results If you want a control pill to help with heavy and painful periods let me know Monthly breast exam Exercise 30 minutes most days of the week Balanced diet documented in this encounter [facility] 06-24-2024 History of Present illness Narrative Associated Problem(s): Bipolar disorder (CMS/[facility]) Unsure if any link with dizziness Associated [...] List Items Addressed This Visit Bipolar disorder (CMS/HCC) Unsure if any link with dizziness Tobacco dependence The patient has been advised of the risks of continued smoking: stroke, RI, all forms of cancer, lung disease, and [...] Cardiology Other Visit Diagnoses Bipolar disorder, unspecified (CMS/HCC) Associated Problem(s): SHEYLA (iron deficiency anemia) Started on ferrous sulfate Associated Problem(s): Tobacco dependence The patient has been advised of the risks of continued smoking: stroke, RI, all forms of cancer, lung disease, and . Options for quitting smoking include: cold turkey, hypnosis, acupuncture, nicotine replacement meds (gum, lozenges, and patches), Buproprion, and Varenicline. At this time pt is encouraged to evaluate their goals for wanting to quit smoking, and reach out to provider when ready to start this process documented in this encounter [facility] 06-24-2024 Instructions Charlee Rodriguez NP - 06/24/2024 3:00 PM EST Refer to [facility] Cardiology [place] [facility], they should call you for an appt documented in this encounter [facility] 05-14-2024 History of Present illness Narrative Associated Problem(s): Dizziness and giddiness [...] states that she had gone to the [facility] 1-2 years ago for blood clots being [...] not seen since 01/2022 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 Is having episodes where she describes feeling [...] free Holter monitor documented in this encounter [facility] Evaluation note Diagnosis Dizziness and giddiness- Primary Anemia due to other cause, not classified Tobacco dependence Tobacco use disorder Overweight (BMI 25.0-29.9) Overweight [facility] Diagnosis Dizziness and giddiness- Primary Anemia due to other cause, not classified Tobacco dependence Tobacco use disorder Overweight (BMI 25.0-29.9) Overweight Iron deficiency anemia, unspecified iron deficiency anemia type- Primary [facility] Diagnosis Dizziness and giddiness- Primary Anemia due to other cause, not classified Tobacco dependence Tobacco use disorder Overweight (BMI 25.0-29.9) Overweight Dizziness and giddiness- Primary Bipolar disorder, unspecified (CMS/HCC) Bipolar disorder, unspecified Tobacco dependence Tobacco use disorder Iron deficiency anemia, unspecified iron deficiency anemia type Tachycardia Unspecified tachycardia Bipolar affective disorder, remission status unspecified (CMS/HCC) [facility] Diagnosis Dizziness and giddiness- Primary Anemia due to other cause, not classified Tobacco dependence Tobacco use disorder Overweight (BMI 25.0-29.9) Overweight Dizziness and giddiness- Primary Bipolar disorder, unspecified (CMS/HCC) Bipolar disorder, unspecified Tobacco dependence Tobacco use disorder Iron deficiency anemia, unspecified iron deficiency anemia type Tachycardia Unspecified tachycardia Bipolar affective disorder, remission status unspecified (CMS/HCC) Well woman exam with routine gynecological exam- Primary Routine gynecological examination Overweight (BMI 25.0-29.9) Overweight Tobacco dependence Tobacco use disorder Vaginal discharge Leukorrhea, not specified as infective Dysmenorrhea [facility] Diagnosis Status post laparoscopic appendectomy- Primary Other postprocedural status [facility] Summary Purpose Family History No Family History Records FoundNo Family History Records FoundNo Family History Records FoundNo Family History Records FoundNo Family History Records FoundNo Family History Records Found Advance Directives No Advanced Directives Records Found Date Activated Date Inactivated Comments 08/23/2024 8:07 AM 08/23/2024 6:27 PM Reason for Referral Specialty Diagnoses / Procedures Referred By Dayne t Referred To Contact Radiology Diagnoses Dizziness and giddiness Procedures Holter monitor Charlee Rodriguez NP [address] [place] [address] Referral ID Status Reason Start Date Expiration Date V isits Requested Visits Authorized [id number] Pending Review 05/14/2024 11/10/2024 1 1 Additional Source Comments INFORMATION SOURCE (unrecogn ized section and content) DATE CREATED AUTHOR 05/19/2019 [facility] DATE CREATED AUTHOR AUTHOR'S ORGANIZ ATION 04/18/2022 [facility] DATE CREATED AUTHOR AUTHOR'S ORGANIZ ATION 07/28/2024 [facility] EPIC DATE CREATED AUTHOR AUTHOR'S ORGANIZ ATION 08/09/2024 [facility] DATE CREATED AUTHOR AUTHOR'S ORGANIZ ATION 09/09/2024 [facility] DATE CREATED AUTHOR AUTHOR'S ORGANIZ ATION 09/10/2024 [facility] Care Teams (unrecognized sec tion and content) Electronic Scale Assembler And Tester Relationship Specialty Start Date End Date Zach Medina MD [address] [place] [address] PCP - General Family Medicine 04/29/24 Charlee Rodriguez NP [address] [place] [address] Nurse Practitioner Family Medicine 04/29/24 [employer] Tester Relationship Specialty Start Date End Date Zach Medina MD [address] [place] [address] PCP - General Family Medicine 04/29/24 Charlee Rodriguez NP [address] [place] [address] Nurse Practitioner Family Medicine 04/29/24 Electronic Scale Assembler And Tester Relationship Specialty Start Date End Date Zach Medina MD [address] [place] [phone] PCP - General Family Medicine 04/29/24 Charlee Rodriguez NP [address] [place] [phone] Nurse Practitioner Family Medicine 04/29/24 Electronic Scale Assembler And Tester Relationship Specialty Start Date End Date Zach Medina MD [address] [place] [phone] PCP - General Family Medicine 04/29/24 Charlee Rodriguez NP [address] [place] [phone] Nurse Practitioner Family Medicine 04/29/24 Electronic Scale Assembler And Tester Relationship Specialty Start Date End Date Zach Medina MD [address] [place] [phone] PCP - General Family Medicine 04/29/24 Charlee Rodriguez NP [address] [place] [phone] Nurse Practitioner Family Medicine 04/29/24 Electronic Scale Assembler And Tester Relationship Specialty Start Date End Date Zach Medina MD [address] [place] [phone] PCP - General Family Medicine 04/29/24 Charlee Rodriguez NP [address] [place] [phone] Nurse Practitioner Family Medicine 04/29/24 Electronic Scale Assembler And Tester Relationship Specialty Start Date End Date Zach Medina MD [address] [place] [id number] PCP - General Family Medicine 04/29/24 Charlee Rodriguez NP [address] [place] [id number] Nurse Practitioner Family Medicine 04/29/24 Electronic Scale Assembler And Tester Relationship Specialty Start Date End Date Zach Medina MD [address] [place] [id number] PCP - General Family Medicine 04/29/24 Charlee Rodriguez NP [address] [place] [id number] Nurse Practitioner Family Medicine 04/29/24 Electronic Scale Assembler And Tester Relationship Specialty Start Date End Date Charlee Rodriguez, INSPECTOR [employer] LOADER PCP - General Nurse Practitioner 09/06/24 Reason for Visit (unrecogniz ed section and content) Reason Comments Dizziness Reason Comments Gynecologic Exam Reason Comments POST-OP VISIT POST OP LAP APPY [facility] 08/23/24 DR CLEMONS FOR RECORDS PERTAINING TO PATIENTS WHO ARE [...] BE BASED ON THE PRIMARY CLINICAL RECORDS. [facility] provides no warranty or guarantee of the accuracy or completeness of information in this document.
[2024-09-12 15:14] LABS: Percent Iron Saturation 3.3 %
[2024-09-13 05:08] LABS: Transferrin 351 mg/dL (192-364)
== END 2024-09-12 14:20 | disposition home or self-care (01) ==
LOC: LAB 14:20
PROVIDERS: PCP Nurse Practitioner; Visit Provider Nurse Practitioner
DX: D50.9 Iron deficiency anemia, unspecified (principal)
CPT/HCPCS: 36415; 83540; 83550; 84466; 85025